=== PATIENT | male | born 1935 | race Caucasian/White ===

== ENCOUNTER 2016-05-31 14:58 | Inpatient (IN) ==
[2016-05-31] MEDS ORDERED: *HR* LORazepam 2 MG/ML VIAL IVP ONE (20:02)
[2016-05-31] MEDS ORDERED: Naloxone 0.4 MG/ML INJ IVP PRN (21:06)
[2016-05-31 21:38] LABS: Hemoglobin 6.5 g/dL (12.9-16.9)
[2016-05-31 21:40] LABS: Hematocrit 20.4 % (37.5-50.1); Immature Platelets 5.2 % (1.1-6.1); Mean Corpuscular HGB Conc 31.9 g/dL (31.6-35.5); Mean Corpuscular Hemoglobin 27.4 pg (28.0-33.3); Mean Corpuscular Volume 86.1 fL (83.0-100.0); Mean Platelet Volume 10.1 fL (9.4-12.4); Red Blood Count 2.37 M/mcL (4.19-5.50)
[2016-05-31 21:50] LABS: Magnesium 1.4 mg/dL (1.6-2.6); Platelet Count 55 K/mcL (140-400); Potassium 3.1 mEq/L (3.5-4.5)
[2016-05-31] MEDS ORDERED: Vancomycin 1,000 MG in D5% in Water 250 ML IVPB SCH (22:00)
[2016-05-31 22:02] LABS: Lymphocytes # 0.2 K/mcL (0.6-4.6); Neutrophils # 9.8 K/mcL (1.6-8.9)
[2016-05-31 22:03] LABS: Platelet Estimate Decreased (Normal)
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
[2016-05-31 22:12] LABS: INR 1.3; Prothrombin Time 14.3 Seconds (9.4-12.1)
[2016-05-31] MEDS ORDERED: Pantoprazole 80 MG in 0.9 % Sodium Chloride 50 ML IVPB ONE (22:32)
[2016-05-31] MEDS ORDERED: Furosemide 20 MG/2 ML VIAL IVP ONE (22:32)
[2016-06-01] MEDS: *HR* LORazepam 2 MG/ML VIAL IVP PRN ×2 (00:47→04:57)
[2016-06-01] MEDS ORDERED: Potassium Chloride 40 MEQ, Lidocaine 1% 2 ML in D5% in Water 500 ML IVPB ONE (01:35)
[2016-06-01] MEDS ORDERED: Magnesium Sulfate 2 GM in D5% in Water 100 ML IVPB ONE (01:35)
[2016-06-01] MEDS ORDERED: *HR* Morphine 2 MG/ML SYRINGE IVP ONE (04:16)
[2016-06-01] MEDS: Pantoprazole 40 MG VIAL IVP SCH ×2 (05:28→17:42)
[2016-06-01] MEDS: Piperacillin/Tazobactam 3.375 GM in D5% in Water (Mini-Bag+) 100 ML IVPB SCH ×2 (05:28→17:42)
[2016-06-01 05:41] LABS: ABG Base Excess 6.2 mEq/L (-2.0 to 3.0); ABG HCO3 30.6 mEQ/L (21-27); ABG Oxygen Saturation 100 % (95-98); ABG PCO2 43 mmHg (35-45); ABG PH 7.46 pH Units (7.32-7.45); ABG PO2 213 mmHg (85-104); ABG TCO2 31.9 mEq/L (20-26)
[2016-06-01 05:42] LABS: Blood Gas FiO2 50 %
[2016-06-01] MEDS: Chlorhexidine Rinse 15 ML MOUTHWASH MM SCH ×2 (08:41→21:59)
[2016-06-01] MEDS ORDERED: Aminoglycoside Consult 1 EACH MC ONE (09:25)
[2016-06-01] MEDS: Dexmedetomidine HCl 400 MCG/100 ML MLS IVC SCH (10:14)
[2016-06-01] MEDS: FentaNYL (PF) 1,000 MCG in 0.9 % Sodium Chloride 80 ML IVC SCH (10:28)
[2016-06-01 10:40] LABS: Hematocrit 25.4 % (37.5-50.1); Hemoglobin 8.3 g/dL (12.9-16.9); Immature Platelets 5.6 % (1.1-6.1); Mean Corpuscular HGB Conc 32.7 g/dL (31.6-35.5); Mean Corpuscular Hemoglobin 27.9 pg (28.0-33.3); Mean Corpuscular Volume 85.2 fL (83.0-100.0); Mean Platelet Volume 11.4 fL (9.4-12.4); Platelet Count 61 K/mcL (140-400); Red Blood Count 2.98 M/mcL (4.19-5.50); Red Cell Distribution Width 16.3 % (11.5-14.5)
--- NOTE | 2016-06-01 10:51 | Pulmonology Consult Note ---
<Tio Kaye - Last Filed: 06/01/16 10:51> Date of Encounter: 06/01/16 Past Med Surg Social Fam HX - Past Medical History Medical history: atrial fibrillation, CHF Psychiatric history: no psych history - Social History Smoking Status: Unknown if ever smoked Smokeless Tobacco Status: No Alcohol use: unknown Drug use: none Medications and Allergies Alprazolam [Xanax 0.25 MG Tablet] 0.25 mg GTUBE Q6H PRN 05/24/16 [History] Ascorbate Calcium [Vitamin C] 500 mg GTUBE BID 05/24/16 [History] Atorvastatin Calcium [Lipitor] 20 mg GTUBE HS 05/24/16 [History] Bisacodyl [Dulcolax] 5 mg GTUBE DAILY PRN 05/24/16 [History] Bisacodyl [Dulcolax] 10 mg RC DAILY PRN 05/24/16 [History] Buspirone HCl [Buspar] 11.25 mg GTUBE BID 05/24/16 [History] Finasteride [Proscar] 5 mg PO DAILY 05/24/16 [History] Gabapentin [Neurontin] 100 mg GTUBE DAILY 05/24/16 [History] GuaiFENesin Liq [Robitussin Liq] 400 mg GTUBE Q6HR 05/24/16 [History] Ipratropium/Albuterol Neb [Duoneb] 3 ml IH Q2H PRN 05/24/16 [History] Melatonin 3 mg PO HS 05/24/16 [History] Metoprolol Tartrate [Lopressor] 25 mg GTUBE BID 05/24/16 [History] Mirtazapine [Remeron] 30 mg GTUBE HS 05/24/16 [History] Mupirocin Calcium [Bactroban Nasal] 1 appl NS BID 05/24/16 [History] Oxycodone HCl [Oxaydo] 5 mg GTUBE Q4H PRN 05/24/16 [History] Quetiapine Fumarate [SEROquel] 75 mg GTUBE Q8H 05/24/16 [History] Acetaminophen [Arthritis Pain Relief] 650 mg GTUBE Q4H PRN 05/31/16 [History] B Complex C No.10/Folic Acid [Nephronex Liquid] 900 mcg GTUBE DAILY 05/31/16 [ History] Ipratropium/Albuterol Neb [Duoneb] 3 ml IH Q4HR 05/31/16 [History] Mineral Oil/Petrolatum,White [Artificial Tears Eye Ointment] 1 appl BOTH EYES Q4H PRN 05/31/16 [History] Sennosides/Docusate Sodium [Senna Plus] 1 each GTUBE DAILY 05/31/16 [History] Allergies No Known Allergies Allergy (Verified 05/24/16 04:21) All Systems: A 10-system review of systems was performed and is negative for pertinent findings except as documented above in the HPI. Physical Examination Vital Signs: Vital Signs, Last 4 Hours Temp Pulse Resp BP Pulse Ox 06/01/16 10:00 85 31 111/60 100 06/01/16 09:42 32 137/82 100 06/01/16 09:00 86 39 126/73 100 06/01/16 08:00 85 23 112/54 100 06/01/16 07:28 98.2 F 06/01/16 07:23 98.1 F 80 22 122/59 100 Ventilator Settings Ventilator Settings: Ventilator Settings, Last 8 Hours Ventilator Mode CPAP Ventilator Mode A/C Ventilator Mode CPAP Ventilator Mode A/C Ventilator Mode A/C Ventilator Mode A/C Ventilator Mode A/C Ventilator Mode A/C Ventilator Mode A/C Ventilator Mode A/C Ventilator Mode A/C Ventilator Mode A/C Ventilator Tidal Volume 450 Setting Ventilator Tidal Volume 450 Setting Ventilator Tidal Volume 450 Setting Ventilator Tidal Volume 450 Setting Ventilator Tidal Volume 450 Setting Ventilator Tidal Volume 450 Setting Ventilator Tidal Volume 450 Setting Ventilator Tidal Volume 450 Setting Ventilator Tidal Volume 450 Setting Ventilator Tidal Volume 450 Setting Ventilator Respiratory Rate 14 Setting Ventilator Respiratory Rate 14 Setting Ventilator Respiratory Rate 14 Setting Ventilator Respiratory Rate 16 Setting Ventilator Respiratory Rate 16 Setting Ventilator Respiratory Rate 16 Setting Ventilator Respiratory Rate 16 Setting Ventilator Respiratory Rate 16 Setting Ventilator Respiratory Rate 16 Setting Ventilator Respiratory Rate 16 Setting Actual Respiratory Rate 31 Actual Respiratory Rate 32 Actual Respiratory Rate 39 Actual Respiratory Rate 27 Actual Respiratory Rate 27 Actual Respiratory Rate 25 Actual Respiratory Rate 31 Actual Respiratory Rate 28 Actual Respiratory Rate 31 Actual Respiratory Rate 31 Actual Respiratory Rate 33 Positive End Expiratory 5 Pressure Positive End Expiratory 5 Pressure Positive End Expiratory 5 Pressure Positive End Expiratory 5 Pressure Positive End Expiratory 5 Pressure Positive End Expiratory 5 Pressure Positive End Expiratory 5 Pressure Positive End Expiratory 5 Pressure Positive End Expiratory 5 Pressure Positive End Expiratory 5 Pressure Positive End Expiratory 5 Pressure Positive End Expiratory 5 Pressure Peak Inspiratory Airway 18 Pressure Peak Inspiratory Airway 18 Pressure Peak Inspiratory Airway 18 Pressure Peak Inspiratory Airway 23 Pressure Peak Inspiratory Airway 27 Pressure Peak Inspiratory Airway 27 Pressure Peak Inspiratory Airway 26 Pressure Peak Inspiratory Airway 25 Pressure Peak Inspiratory Airway 20 Pressure Peak Inspiratory Airway 27 Pressure Peak Inspiratory Airway 23 Pressure Results - Laboratory Findings CBC and BMP: 06/01/16 10:21 05/31/16 21:30 ABG ABG pH 7.46 pH Units (7.32-7.45) H 06/01/16 05:33 ABG pCO2 43 mmHg (35-45) 06/01/16 05:33 ABG pO2 213 mmHg (85-104) H 06/01/16 05:33 ABG O2 Saturation 100 % (95-98) H 06/01/16 05:33 PT/INR, D-dimer PT 14.3 Seconds (9.4-12.1) H 05/31/16 21:30 Abnormal lab findings: Abnormal lab results WBC 14.7 K/mcL (4.3-11.1) H 06/01/16 10:21 RBC 2.98 M/mcL (4.19-5.50) L 06/01/16 10:21 Hgb 8.3 g/dL (12.9-16.9) L D 06/01/16 10:21 Hct 25.4 % (37.5-50.1) L 06/01/16 10:21 MCH 27.9 pg (28.0-33.3) L 06/01/16 10:21 RDW 16.3 % (11.5-14.5) H 06/01/16 10:21 Plt Count 61 K/mcL (140-400) L 06/01/16 10:21 Band Neutrophils % 15.0 % (0-4) H 05/31/16 21:30 Neutrophils # 9.8 K/mcL (1.6-8.9) H 05/31/16 21:30 Lymphocytes # 0.2 K/mcL (0.6-4.6) L 05/31/16 21:30 Platelet Estimate Decreased (Normal) L 05/31/16 21:30 PT 14.3 Seconds (9.4-12.1) H 05/31/16 21:30 ABG pH 7.46 pH Units (7.32-7.45) H 06/01/16 05:33 ABG pO2 213 mmHg (85-104) H 06/01/16 05:33 ABG HCO3 30.6 mEQ/L (21-27) H 06/01/16 05:33 ABG Total CO2 31.9 mEq/L (20-26) H 06/01/16 05:33 ABG O2 Saturation 100 % (95-98) H 06/01/16 05:33 ABG Base Excess 6.2 mEq/L (-2.0 to 3.0) H 06/01/16 05:33 Potassium 3.1 mEq/L (3.5-4.5) L 05/31/16 21:30 Chloride 97 mEq/L (98-109) L 05/31/16 21:30 BUN 52 mg/dL (8-26) H D 05/31/16 21:30 Creatinine 1.99 mg/dL (0.72-1.25) H 05/31/16 21:30 Est GFR ( Amer) 39 (> 60) L 05/31/16 21:30 Est GFR (Non-Af Amer) 32 (> 60) L 05/31/16 21:30 Glucose 169 mg/dL (70-99) H 05/31/16 21:30 POC Glucose 163 (58-89) H 05/31/16 23:41 Calcium 8.0 mg/dL (8.6-10.8) L 05/31/16 21:30 Magnesium 1.4 mg/dL (1.6-2.6) L 05/31/16 21:30 C-Reactive Protein 136 mg/L (Less than 5) H 05/31/16 21:30 - Clinical Findings Intake & Output: Intake & Output 05/31/16 06/01/16 06/01/16 23:59 07:59 15:59 Intake Total 0 / 0 978 / 978 350 / 350 Output Total 81 / 81 Balance 0 / 0 897 / 897 350 / 350 Weight 61.3 kg 61.8 kg Consult Discharge Plan - Plan Referrals: NO,PCP [Primary Care Provider] - <Kisha Ayers - Last Filed: 06/01/16 18:29> Date of Encounter: 06/01/16 Time of Encounter: 07:30 All Systems: A 10-system review of systems was performed and is negative for pertinent findings except as documented above in the HPI. Physical Examination Vital Signs: Vital Signs, Last 4 Hours Temp Pulse Resp BP Pulse Ox 06/01/16 12:08 98.2 F 06/01/16 10:00 85 31 111/60 100 06/01/16 09:42 32 137/82 100 06/01/16 09:00 86 39 126/73 100 Ventilator Settings Ventilator Settings: Ventilator Settings, Last 8 Hours Ventilator Mode CPAP Ventilator Mode A/C Ventilator Mode CPAP Ventilator Mode A/C Ventilator Mode A/C Ventilator Mode A/C Ventilator Mode A/C Ventilator Mode A/C Ventilator Mode A/C Ventilator Tidal Volume 450 Setting Ventilator Tidal Volume 450 Setting Ventilator Tidal Volume 450 Setting Ventilator Tidal Volume 450 Setting Ventilator Tidal Volume 450 Setting Ventilator Tidal Volume 450 Setting Ventilator Tidal Volume 450 Setting Ventilator Respiratory Rate 14 Setting Ventilator Respiratory Rate 14 Setting Ventilator Respiratory Rate 14 Setting Ventilator Respiratory Rate 16 Setting Ventilator Respiratory Rate 16 Setting Ventilator Respiratory Rate 16 Setting Ventilator Respiratory Rate 16 Setting Actual Respiratory Rate 31 Actual Respiratory Rate 32 Actual Respiratory Rate 39 Actual Respiratory Rate 27 Actual Respiratory Rate 27 Actual Respiratory Rate 25 Actual Respiratory Rate 31 Actual Respiratory Rate 28 Positive End Expiratory 5 Pressure Positive End Expiratory 5 Pressure Positive End Expiratory 5 Pressure Positive End Expiratory 5 Pressure Positive End Expiratory 5 Pressure Positive End Expiratory 5 Pressure Positive End Expiratory 5 Pressure Positive End Expiratory 5 Pressure Positive End Expiratory 5 Pressure Peak Inspiratory Airway 18 Pressure Peak Inspiratory Airway 18 Pressure Peak Inspiratory Airway 18 Pressure Peak Inspiratory Airway 23 Pressure Peak Inspiratory Airway 27 Pressure Peak Inspiratory Airway 27 Pressure Peak Inspiratory Airway 26 Pressure Peak Inspiratory Airway 25 Pressure Results - Laboratory Findings CBC and BMP: 06/01/16 10:21 06/01/16 10:21 ABG ABG pH 7.46 pH Units (7.32-7.45) H 06/01/16 05:33 ABG pCO2 43 mmHg (35-45) 06/01/16 05:33 ABG pO2 213 mmHg (85-104) H 06/01/16 05:33 ABG O2 Saturation 100 % (95-98) H 06/01/16 05:33 PT/INR, D-dimer PT 14.3 Seconds (9.4-12.1) H 05/31/16 21:30 Abnormal lab findings: Abnormal lab results WBC 14.7 K/mcL (4.3-11.1) H 06/01/16 10:21 RBC 2.98 M/mcL (4.19-5.50) L 06/01/16 10:21 Hgb 8.3 g/dL (12.9-16.9) L D 06/01/16 10:21 Hct 25.4 % (37.5-50.1) L 06/01/16 10:21 MCH 27.9 pg (28.0-33.3) L 06/01/16 10:21 RDW 16.3 % (11.5-14.5) H 06/01/16 10:21 Plt Count 61 K/mcL (140-400) L 06/01/16 10:21 Neutrophils # 13.8 K/mcL (1.6-8.9) H 06/01/16 10:21 Platelet Estimate Decreased (Normal) L 06/01/16 10:21 PT 14.3 Seconds (9.4-12.1) H 05/31/16 21:30 ABG pH 7.46 pH Units (7.32-7.45) H 06/01/16 05:33 ABG pO2 213 mmHg (85-104) H 06/01/16 05:33 ABG HCO3 30.6 mEQ/L (21-27) H 06/01/16 05:33 ABG Total CO2 31.9 mEq/L (20-26) H 06/01/16 05:33 ABG O2 Saturation 100 % (95-98) H 06/01/16 05:33 ABG Base Excess 6.2 mEq/L (-2.0 to 3.0) H 06/01/16 05:33 Sodium 135 mEq/L (136-145) L 06/01/16 10:21 Chloride 96 mEq/L (98-109) L 06/01/16 10:21 BUN 70 mg/dL (8-26) H D 06/01/16 10:21 Creatinine 2.49 mg/dL (0.72-1.25) H 06/01/16 10:21 Est GFR ( Amer) 30 (> 60) L 06/01/16 10:21 Est GFR (Non-Af Amer) 25 (> 60) L 06/01/16 10:21 BUN/Creatinine Ratio 28 (6-26) H 06/01/16 10:21 Glucose 136 mg/dL (70-99) H 06/01/16 10:21 POC Glucose 163 (58-89) H 05/31/16 23:41 Calculated Osmolality 303 (280-300) H 06/01/16 10:21 Magnesium 1.4 mg/dL (1.6-2.6) L 05/31/16 21:30 C-Reactive Protein 136 mg/L (Less than 5) H 05/31/16 21:30 - Clinical Findings Intake & Output: Intake & Output 05/31/16 06/01/16 06/01/16 23:59 07:59 15:59 Intake Total 0 / 0 978 / 978 358.8 / 358.8 Output Total 81 / 81 0 / 0 Balance 0 / 0 897 / 897 358.8 / 358.8 Weight 61.3 kg 61.8 kg - Attending Attestation I examined this patient and my medical decision-making was reviewed with the 3D SPECIALIST/PA/Advanced Practice Nurse/Resident Physician. I agree with the documented findings, disposition and treatment plan as described except to the extent set forth below. Patient seen and examined. Labs, radiology, chart personally reviewed. 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 Pulmonary: Patient has increased work of breathing, overall ABGs are acceptable , we will lower his respiratory rate and trial of spontaneous breathing with pressure support which seems that patient more comfortable with that, however with adding sedation for vent synchrony patient needed to be on the full support again. Cardiovascular: Patient is on A. fib RVR and due to history of anemia which is most likely GI related not candidate for anticoagulation and to wean off his Cardizem to restart his metoprolol home dose. GI: Nutrition per dietary and GI prophylaxis per routine Heme: DVT prophylaxis per routine ID: Continue antibiotics and plan to de-escalation Renal; nephrology and will recommend HD for volume management and called nephrology. Endorcine: blood glucose is monitored Lines: all lines checked and no evidence of infections Skin: skin care to prevent pressure ulcers per nursing routine care Overall prognosis is poor. I spent 35 min of Critical Care time with this patient. It involved decision making of high complexity to assess, manipulate, and support vital organ system failure and/or to prevent further life threatening deterioration of the patient' s condition. The time involved in the performance of separately reportable procedures was not counted toward critical care time.
[2016-06-01 11:01] LABS: Calcium 8.6 mg/dL (8.6-10.8)
[2016-06-01 11:13] LABS: Lymphocytes # 0.6 K/mcL (0.6-4.6); Monocytes # 0.3 K/mcL (0.0-1.3); Neutrophils # 13.8 K/mcL (1.6-8.9)
[2016-06-01 11:14] LABS: Platelet Estimate Decreased (Normal)
[2016-06-01] MEDS ORDERED: Vancomycin 1,000 MG in D5% in Water 250 ML IVPB ONE ×2 (13:30→19:00)
[2016-06-01] MEDS ORDERED: 0.9 % Sodium Chloride 250 ML IVC PRN (13:31)
[2016-06-01] MEDS ORDERED: 0.9 % Sodium Chloride 1,000 ML PRIME SCH (13:45)
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
[2016-06-01] MEDS ORDERED: 0.9 % Sodium Chloride 2,000 ML ONE (14:37)
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
[2016-06-01] MEDS: Lacri-Lube 3.5 GM TUBE BOTH EYES SCH (21:59)
[2016-06-02] MEDS ORDERED: Vancomycin 1,000 MG in D5% in Water 250 ML IVPB ONE (02:00)
[2016-06-02] MEDS: FentaNYL (PF) 1,000 MCG in 0.9 % Sodium Chloride 80 ML IVC SCH ×2 (02:28→12:52)
[2016-06-02 04:24] LABS: ABG Base Excess 7.6 mEq/L (-2.0 to 3.0); ABG Oxygen Saturation 96 % (95-98); ABG PCO2 44 mmHg (35-45); ABG PH 7.47 pH Units (7.32-7.45); ABG PO2 75 mmHg (85-104); ABG TCO2 33.4 mEq/L (20-26)
[2016-06-02 04:25] LABS: Blood Gas FiO2 30 %
[2016-06-02 05:03] LABS: Hemoglobin 8.7 g/dL (12.9-16.9)
[2016-06-02 05:04] LABS: Hematocrit 26.7 % (37.5-50.1); Immature Platelets 5.3 % (1.1-6.1); Mean Corpuscular HGB Conc 32.6 g/dL (31.6-35.5); Mean Corpuscular Hemoglobin 28.1 pg (28.0-33.3); Mean Corpuscular Volume 86.1 fL (83.0-100.0); Mean Platelet Volume 10.3 fL (9.4-12.4); Red Cell Distribution Width 16.9 % (11.5-14.5)
[2016-06-02 05:06] LABS: Albumin 2.2 g/dL (3.5-5.0); Calcium 8.8 mg/dL (8.6-10.8); Magnesium 1.9 mg/dL (1.6-2.6); Phosphorous 1.1 mg/dL (2.3-4.7); Potassium 3.4 mEq/L (3.5-4.5)
[2016-06-02 05:08] LABS: Albumin 2.2 g/dL (3.5-5.0); Albumin/Globulin Ratio 0.6 (1.1-2.2); Bilirubin,Total 0.8 mg/dL (0.2-1.2); Calcium 8.9 mg/dL (8.6-10.8); Globulin 3.6 g/dL (2.4-3.5); Potassium 3.4 mEq/L (3.5-4.5); Total Protein 5.8 g/dL (6.0-8.3)
[2016-06-02 05:24] LABS: Platelet Count 65 K/mcL (140-400)
[2016-06-02 06:11] LABS: Lymphocytes # 0.6 K/mcL (0.6-4.6); Monocytes # 0.6 K/mcL (0.0-1.3); Neutrophils # 9.4 K/mcL (1.6-8.9)
[2016-06-02 06:12] LABS: Platelet Estimate Decreased (Normal)
[2016-06-02 06:13] LABS: Toxic Granulation Present (Not Present)
[2016-06-02] MEDS: Piperacillin/Tazobactam 3.375 GM in D5% in Water (Mini-Bag+) 100 ML IVPB SCH ×2 (06:43→17:30)
[2016-06-02] MEDS: Pantoprazole 40 MG VIAL IVP SCH ×2 (06:44→17:29)
[2016-06-02] MEDS: Chlorhexidine Rinse 15 ML MOUTHWASH MM SCH ×2 (09:15→21:00)
[2016-06-02] MEDS: Lacri-Lube 3.5 GM TUBE BOTH EYES SCH ×2 (09:16→21:00)
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
[2016-06-02] MEDS: Dexmedetomidine HCl 400 MCG/100 ML MLS IVC SCH ×2 (11:18→21:02)
[2016-06-02 11:22] LABS: Folate 15.7 ng/mL (7.0-31.4)
[2016-06-02] MEDS ORDERED: Piperacillin/Tazobactam 3.375 GM in D5% in Water (Mini-Bag+) 100 ML IVPB SCH (15:30)
--- NOTE | 2016-06-02 15:58 | Nephrology Progress Note ---
Date of Encounter: 06/02/16 Time of Encounter: 15:48 - Assessment and Plan (1) ESRD (end stage renal disease) Current Visit: Yes Status: Acute 1. ESRD pt was dialyzed yesterday with 4 kg of ultrafiltration. No indication for dialysis today. Serum creatinine is 1.7, urine output is 110 mL 2. Hypokalemia, hypomagnesemia and hypophosphatemia. Serum magnesium level is stable today. Give IV K-Phos PTH level 43. vit D level is pend (2) Normocytic anemia Current Visit: Yes Status: Chronic hb stable. Continue Aranesp 25 mcgs q w friday. Ferritin and iron sat are elevated, currently not on iron supplements B12 level 1328, folate 15 Subjective Principal diagnosis: difficulty in breathing Interval history: awake, opening eyes and moving ext spontaneously. 28 % fio2 on vent. On Fentanyl and precedex. tolerating tube feeds Objective - Vital Signs Vital signs: Vital Signs Temp Pulse Resp BP Pulse Ox 06/02/16 15:27 23 138/63 97 06/02/16 15:20 98.0 F 06/02/16 14:00 79 21 135/78 98 06/02/16 13:49 28 124/64 98 06/02/16 13:00 79 20 124/64 98 06/02/16 12:00 79 23 125/58 99 06/02/16 11:18 96.7 F L 06/02/16 11:10 23 132/63 100 06/02/16 11:00 79 25 132/63 100 06/02/16 10:00 80 25 117/62 99 06/02/16 09:41 35 111/53 98 06/02/16 09:00 89 24 115/61 97 06/02/16 07:44 82 22 122/90 99 06/02/16 07:33 24 122/90 100 06/02/16 07:15 96.7 F L 06/02/16 06:00 80 23 127/68 100 06/02/16 05:45 23 100 06/02/16 05:00 81 20 142/74 100 06/02/16 04:00 97.8 F 86 20 140/71 100 06/02/16 03:39 18 127/95 100 06/02/16 03:00 79 18 128/73 100 06/02/16 02:00 95 20 136/81 96 04/23/17 01:15 21 141/75 96 06/02/16 01:00 98.4 F 94 20 135/75 96 06/02/16 00:20 98.4 F 06/02/16 00:00 86 06/01/16 23:30 18 100 06/01/16 22:00 97 15 124/70 100 06/01/16 21:27 20 113/98 100 06/01/16 21:00 92 18 116/72 100 06/01/16 20:00 98.0 F 98 18 125/72 100 06/01/16 19:56 98.8 F 16 106/62 06/01/16 19:34 19 100 06/01/16 19:10 94/64 06/01/16 19:00 96 18 107/60 100 06/01/16 18:55 103/60 06/01/16 18:40 106/69 06/01/16 18:25 105/68 06/01/16 18:10 115/71 06/01/16 18:00 88 26 110/63 100 06/01/16 17:55 126/80 06/01/16 17:40 127/74 06/01/16 17:25 105/62 06/01/16 17:21 22 112/64 100 06/01/16 17:10 119/65 06/01/16 17:00 87 22 113/65 100 06/01/16 16:55 114/73 06/01/16 16:40 124/68 06/01/16 16:25 137/71 06/01/16 16:10 98.2 F 16 136/81 06/01/16 16:09 96.3 F L 06/01/16 16:00 87 22 136/81 100 Intake and Output 06/01/16 06/02/16 06/02/16 23:59 07:59 15:59 Intake Total 4444 / 4444 384.7 / 384.7 226.5 / 226.5 Output Total 4100 / 4100 60 / 60 50 / 50 Balance 344 / 344 324.7 / 324.7 176.5 / 176.5 Intake: IV Fluids 100 / 100 224.7 / 224.7 226.5 / 226.5 PRECEDEX 400 mcg In 100 64.5 / 64.5 61.8 / 61.8 ml @ 0.2 MCG/KG/HR 3.09 mls/hr IVC .Q24H [facility] Rx#: [id number] Cardizem 125 MG In 0 / 0 Dextrose 5% 100 ML @ 5 MG /HR 5 mls/hr IVC .Q24H [facility] Rx#:[id number] FentaNYL (PF) 1,000 MCG 160.2 / 160.2 64.7 / 64.7 In 0.9 % Sodium Chloride 80 ML @ 50 MCG/HR 5 mls/ hr IVC CONT [facility] Rx#: [id number] Zosyn 3.375 GM In 100 / 100 100 / 100 Dextrose 5% (Minibag+) 100 ML 100 ML @ 25 mls/hr IVPB Q12HR [facility] Rx#: [id number] Oral 3500 / 3500 0 / 0 Tube Feeding 144 / 144 160 / 160 Free Water 100 / 100 Intake, Rinseback and 600 / 600 Flushes Output: Urine 0 / 0 Stool 0 / 0 Total Dialysis Output 4100 / 4100 Catheter 0 / 0 60 / 60 50 / 50 Other: Stool Size Small Stool Consistency loose Stool Color Brown Weight 59 kg Blood Glucose* 118 Hemodialysis Net Fluid 3500 Removed (mL) Patient Weight 06/02/16 23:59 Weight 59 kg - General Appearance Exam: CVS; s1s2 present, regular, no murmurs RESP; good air entry, clear anteriorly ABD; soft, NT, BS present EXT; no edema, 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; 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, no purposeful response - Lab 06/02/16 04:51 06/02/16 04:51 Most recent lab results ABG pH 7.47 pH Units (7.32-7.45) H 06/02/16 03:54 ABG pCO2 44 mmHg (35-45) 06/02/16 03:54 ABG pO2 75 mmHg (85-104) L 06/02/16 03:54 ABG HCO3 32.0 mEQ/L (21-27) H 06/02/16 03:54 ABG O2 Saturation 96 % (95-98) 06/02/16 03:54 Calcium 8.9 mg/dL (8.6-10.8) 06/02/16 04:51 Phosphorus 1.1 mg/dL (2.3-4.7) L 06/02/16 04:51 Magnesium 1.9 mg/dL (1.6-2.6) 06/02/16 04:51 - VTE Documentation of Mechanical Device: Intermittent pneumatic compression device Consult Discharge Plan - Plan Referrals: NO,PCP [Primary Care Provider] -
[2016-06-03] MEDS: FentaNYL (PF) 1,000 MCG in 0.9 % Sodium Chloride 80 ML IVC SCH (01:49)
[2016-06-03 04:35] LABS: Basophils % 0.6 %; Eosinophils % 0.1 %; Hemoglobin 8.9 g/dL (12.9-16.9); Segmented Neutrophils % 56.1 %
[2016-06-03 04:37] LABS: Hematocrit 27.6 % (37.5-50.1); Immature Granulocytes % 23.7 % (0-4); Immature Platelets 3.3 % (1.1-6.1); Lymphocytes # 0.5 K/mcL (0.6-4.6); Lymphocytes % 7.3 %; Mean Corpuscular HGB Conc 32.2 g/dL (31.6-35.5); Mean Corpuscular Hemoglobin 28.5 pg (28.0-33.3); Mean Corpuscular Volume 88.5 fL (83.0-100.0); Mean Platelet Volume 11.3 fL (9.4-12.4); Monocytes # 0.9 K/mcL (0.0-1.3); Monocytes % 12.2 %; Red Blood Count 3.12 M/mcL (4.19-5.50)
[2016-06-03 04:43] LABS: Calcium 8.6 mg/dL (8.6-10.8); Potassium 3.5 mEq/L (3.5-4.5)
[2016-06-03 04:43] LABS: ABG HCO3 29.1 mEQ/L (21-27); ABG Oxygen Saturation 98 % (95-98); ABG PCO2 40 mmHg (35-45); ABG PH 7.47 pH Units (7.32-7.45); ABG PO2 92 mmHg (85-104); ABG TCO2 30.3 mEq/L (20-26); Blood Gas FiO2 28 %
[2016-06-03 04:46] LABS: Phosphorous 2.2 mg/dL (2.3-4.7)
[2016-06-03 04:55] LABS: Calcium 8.6 mg/dL (8.6-10.8); Potassium 3.5 mEq/L (3.5-4.5)
[2016-06-03 05:05] LABS: Platelet Count 72 K/mcL (140-400)
[2016-06-03 05:06] LABS: Hypochromasia Present (Not Present); Platelet Estimate Decreased (Normal)
[2016-06-03] MEDS: Pantoprazole 40 MG VIAL IVP SCH ×2 (06:17→21:23)
[2016-06-03] MEDS: Piperacillin/Tazobactam 3.375 GM in D5% in Water (Mini-Bag+) 100 ML IVPB SCH (06:17)
[2016-06-03] MEDS: Dexmedetomidine HCl 400 MCG/100 ML MLS IVC SCH ×2 (06:17→16:27)
--- NOTE | 2016-06-03 08:35 | Nephrology Progress Note ---
Date of Encounter: 06/03/16 Time of Encounter: 08:33 - Assessment and Plan (1) ESRD (end stage renal disease) Current Visit: Yes Status: Acute Patient's creatinine remains low because of decreased muscle mass. He is oliguric. He will require dialysis today for control of azotemia. He is on Aranesp for his anemia. Iron studies are satisfactory. (2) Atrial fibrillation with RVR Current Visit: Yes Status: Acute (3) Acute and chronic respiratory failure Current Visit: Yes Status: Acute Qualifiers: Respiratory failure complication: hypoxia Qualified Code(s): J96.21 - Acute and chronic respiratory failure with hypoxia Subjective Principal diagnosis: difficulty in breathing Interval history: Patient is on the ventilator. He appears more alert. Sedation has been turned off. Jackson catheter is in place. Patient makes very little urine. He is scheduled for his usual dialysis today. Objective - Vital Signs Vital signs: Vital Signs Temp Pulse Resp BP Pulse Ox 06/03/16 07:49 98.4 F 06/03/16 07:43 27 140/72 97 06/03/16 06:00 82 22 140/60 97 06/03/16 05:20 28 139/81 99 06/03/16 05:06 97.2 F L 06/03/16 05:00 91 28 139/81 99 06/03/16 04:00 80 24 133/64 100 06/03/16 03:49 18 140/68 100 06/03/16 03:00 78 25 136/68 100 06/03/16 02:00 74 23 133/71 100 06/03/16 01:18 20 136/72 100 06/03/16 01:00 77 18 134/72 99 06/03/16 00:00 98.2 F 84 18 136/68 99 06/02/16 23:37 98.2 F 06/02/16 23:27 19 142/72 98 06/02/16 23:00 98.2 F 72 18 143/72 100 06/02/16 22:00 74 18 131/65 99 06/02/16 21:34 26 138/66 99 06/02/16 21:00 98.0 F 78 18 133/70 97 06/02/16 20:00 98.0 F 86 06/02/16 19:34 19 120/68 100 06/02/16 19:00 98.0 F 76 18 126/58 100 06/02/16 18:00 77 20 119/63 100 06/02/16 17:16 20 126/66 95 06/02/16 17:00 80 19 129/62 100 06/02/16 16:00 77 22 141/74 98 06/02/16 15:27 23 138/63 97 06/02/16 15:20 98.0 F 06/02/16 15:00 76 24 138/63 97 06/02/16 14:00 79 21 135/78 98 06/02/16 13:49 28 124/64 98 06/02/16 13:00 79 20 124/64 98 06/02/16 12:00 79 23 125/58 99 06/02/16 11:18 96.7 F L 06/02/16 11:10 23 132/63 100 06/02/16 11:00 79 25 132/63 100 06/02/16 10:00 80 25 117/62 99 06/02/16 09:41 35 111/53 98 06/02/16 09:00 89 24 115/61 97 Intake and Output 06/02/16 06/03/16 06/03/16 23:59 07:59 15:59 Intake Total 830 / 830 383 / 383 Output Total 72 / 72 95 / 95 Balance 758 / 758 288 / 288 Intake: IV Fluids 170 / 170 170 / 170 PRECEDEX 400 mcg In 100 70 / 70 100 / 100 ml @ 0.2 MCG/KG/HR 3.09 mls/hr IVC .Q24H [facility] Rx#: [id number] FentaNYL (PF) 1,000 MCG 70 / 70 In 0.9 % Sodium Chloride 80 ML @ 50 MCG/HR 5 mls/ hr IVC CONT [facility] Rx#: [id number] Zosyn 3.375 GM In 100 / 100 Dextrose 5% (Minibag+) 100 ML 100 ML @ 25 mls/hr IVPB Q12HR [facility] Rx#: [id number] Tube Feeding 660 / 660 213 / 213 Output: Urine 30 / 30 Urethral (Jackson) 30 / 30 Catheter 51 / 51 65 / 65 Other: Stool Size Large Moderate Stool Consistency loose soft Stool Color Brown Black # Bowel Movements 1 Weight 62.6 kg - General Appearance Exam: Patient is on the ventilator. Trach is in place. He is in no acute distress. He appears chronically ill and thin. Lungs coarse breath sounds with rhonchi. Heart irregular rate and rhythm. Abdomen is soft. Bowel sounds are present. PEG tube is in place. There is no peripheral edema. There is generalized muscular atrophy. There is a tunnel dialysis catheter in the right chest. - Lab 06/03/16 04:15 06/03/16 04:15 Most recent lab results ABG pH 7.47 pH Units (7.32-7.45) H 06/03/16 04:32 ABG pCO2 40 mmHg (35-45) 06/03/16 04:32 ABG pO2 92 mmHg (85-104) 06/03/16 04:32 ABG HCO3 29.1 mEQ/L (21-27) H 06/03/16 04:32 ABG O2 Saturation 98 % (95-98) 06/03/16 04:32 Calcium 8.6 mg/dL (8.6-10.8) 06/03/16 04:15 Phosphorus 2.2 mg/dL (2.3-4.7) L D 06/03/16 04:15 Magnesium 1.9 mg/dL (1.6-2.6) 06/02/16 04:51 - VTE Documentation of Mechanical Device: Intermittent pneumatic compression device Consult Discharge Plan - Plan Referrals: NO,PCP [Primary Care Provider] -
[2016-06-03] MEDS ORDERED: 0.9 % Sodium Chloride 250 ML IVC PRN (08:36)
[2016-06-03 08:58] LABS: Vancomycin,Random 16.5 mcg/mL
[2016-06-03] MEDS: Chlorhexidine Rinse 15 ML MOUTHWASH MM SCH ×2 (09:02→21:23)
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
[2016-06-03 09:12] LABS: Albumin 2.1 g/dL (3.5-5.0); Albumin/Globulin Ratio 0.6 (1.1-2.2); Bilirubin,Direct 0.5 mg/dL (0.0-0.5); Bilirubin,Indirect 0.4 mg/dL (0.0-1.2); Bilirubin,Total 0.9 mg/dL (0.2-1.2); Globulin 3.5 g/dL (2.4-3.5); Total Protein 5.6 g/dL (6.0-8.3)
[2016-06-03] MEDS ORDERED: Vancomycin 1 EACH in EMPTY BAG 1 EACH IVPB SCH (10:00)
[2016-06-03] MEDS ORDERED: Vancomycin 1,000 MG in D5% in Water 250 ML IVPB SCH (10:00)
[2016-06-03] MEDS: Ampicillin 2 GM in 0.9 % Sodium Chloride Mini Bag 100 ML IVPB SCH ×2 (12:41→21:24)
--- NOTE | 2016-06-03 12:53 | Event Note ---
Date of Encounter: 06/03/16 Time of Encounter: 08:30 Patient examined, chart and all data reviewed as well as imaging studies. The patient was transferred to [facility] with anemia and heme-positive stool. The patient has multiple comorbidities which include chronic respiratory failure and sees patient has chronic trach as well as reportedly is ventilator dependent) end-stage renal disease (hemodialysis 3 times weekly via right subclavian permacath) and atrial fibrillation (pacemaker) among other comorbidities. Patient currently requires low-level ventilatory support. He is also receiving sedation with both Precedex and fentanyl infusions. His hemodynamics are acceptable. Examination reveals an elderly male seemingly confused when prompted regarding questions he is awake and alert no distress vitals reviewed. A well healed tracheostomy devices within appropriate positioning. A right subclavian permacath is noted the insertion site is clean and dry. A right upper extremity PICC line is also present. A pacemaker device is noted entering the left subclavian location is palpable generator over the left subclavian position. Chest auscultation reveals crackles bilaterally diminished breath sounds. Cardiac exam is notable for an irregularly rhythm faint murmur. The abdominal exam was soft nontender bowel sounds are noted throughout. The extremities are free of edema pulses are intact. Limited neurologic exam reveals no obvious focal deficits. Laboratory data reviewed and of note, as of this morning, 2 out of 2 blood cultures performed an outlying institution revealed growth of ampicillin sensitive enterococcus. Impressions #1 chronic respiratory failure ventilator dependent, #2 tracheostomy status #3 enterococcal bacteremia presumably line infection as etiology #4 end-stage renal disease with hypervolemia and pulmonary edema #5 anemia presumably acute blood loss anemia (in addition a chronic anemia), given positive stool treatment directed with PPI therapy and GI consultation requested. The patient will be placed on intravenous ampicillin. Right upper extremity PICC line will be removed. An echocardiogram will be obtained for further evaluation of valvular dysfunction and repeat blood cultures will be obtained within the next 48 hours. Further evaluation regarding the possible need for removal of permacath device will be dependent upon sterilization of blood cultures and no other findings to suggest ongoing endovascular infection. Continuous sedation and subcutaneous will be discontinued at this time. Hemodialysis per discretion of nephrology service. Deloris Ibarra [phone]
[2016-06-03] MEDS ORDERED: *HR* Heparin 10,000 UNIT/10 ML VIAL IV PRN (13:14)
[2016-06-03] MEDS ORDERED: 0.9 % Sodium Chloride 2,000 ML ONE (13:27)
[2016-06-03] MEDS ORDERED: *HR* LORazepam 2 MG/ML VIAL IVP ONE (17:30)
[2016-06-03] MEDS: Lacri-Lube 3.5 GM TUBE BOTH EYES SCH (21:00)
[2016-06-03] MEDS: *HR* LORazepam 2 MG/ML VIAL IVP SCH (21:22)
[2016-06-03] MEDS ORDERED: *HR* LORazepam 2 MG/ML VIAL ONE (23:13)
[2016-06-04] MEDS: *HR* FentaNYL (PF) 100 MCG/2 ML VIAL IVP PRN ×4 (00:36→17:27)
[2016-06-04] MEDS: Lacri-Lube 3.5 GM TUBE BOTH EYES SCH ×3 (00:38→21:33)
[2016-06-04] MEDS: *HR* LORazepam 2 MG/ML VIAL IVP SCH ×2 (02:42→08:26)
[2016-06-04] MEDS ORDERED: *HR* Metoprolol 5 MG/5 ML VIAL IVP ONE (03:17)
[2016-06-04] MEDS: Dexmedetomidine HCl 400 MCG/100 ML MLS IVC SCH (04:34)
[2016-06-04 04:39] LABS: Hematocrit 27.9 % (37.5-50.1); Hemoglobin 9.1 g/dL (12.9-16.9); Mean Corpuscular HGB Conc 32.6 g/dL (31.6-35.5); Mean Corpuscular Hemoglobin 28.9 pg (28.0-33.3); Mean Corpuscular Volume 88.6 fL (83.0-100.0); Mean Platelet Volume 10.8 fL (9.4-12.4); Red Blood Count 3.15 M/mcL (4.19-5.50); Red Cell Distribution Width 16.8 % (11.5-14.5)
[2016-06-04 04:40] LABS: Platelet Count 67 K/mcL (140-400)
[2016-06-04 06:02] LABS: ABG Base Excess 4.8 mEq/L (-2.0 to 3.0); ABG HCO3 27.8 mEQ/L (21-27); ABG Oxygen Saturation 98 % (95-98); ABG PCO2 34 mmHg (35-45); ABG PH 7.52 pH Units (7.32-7.45); ABG PO2 88 mmHg (85-104); ABG TCO2 28.8 mEq/L (20-26)
[2016-06-04 06:03] LABS: Blood Gas FiO2 28 %
[2016-06-04] MEDS: Pantoprazole 40 MG VIAL IVP SCH ×2 (06:15→18:02)
--- NOTE | 2016-06-04 07:57 | Nephrology Progress Note ---
Date of Encounter: 06/04/16 Time of Encounter: 07:56 - Assessment and Plan (1) ESRD (end stage renal disease) Current Visit: Yes Status: Acute Patient has end-stage renal disease. He remains dialysis dependent. He will continue to have dialysis every Friday. (2) Atrial fibrillation with RVR Current Visit: Yes Status: Acute (3) Acute and chronic respiratory failure Current Visit: Yes Status: Acute Qualifiers: Respiratory failure complication: hypoxia Qualified Code(s): J96.21 - Acute and chronic respiratory failure with hypoxia Subjective Principal diagnosis: difficulty in breathing Interval history: The patient remains on the ventilator. The nurse reports the patient had A. fib with RVR last night. This morning his heart rate is around 87. Vital signs are stable. He underwent dialysis yesterday. He is scheduled to undergo an EGD later today. Objective - Vital Signs Vital signs: Vital Signs Temp Pulse Resp BP Pulse Ox 06/04/16 06:00 87 24 117/78 100 06/04/16 05:55 35 119/69 98 06/04/16 05:00 79 20 119/69 100 06/04/16 04:40 99.4 F 06/04/16 04:34 26 102/59 100 06/04/16 04:00 99 30 102/59 100 06/04/16 03:00 156 40 150/79 96 06/04/16 02:33 28 105/64 93 06/04/16 02:00 122 29 105/64 100 06/04/16 01:00 100 30 108/81 100 06/04/16 00:39 100.5 F H 06/04/16 00:02 25 111/68 100 06/04/16 00:00 106 34 111/68 100 06/03/16 23:00 106 30 119/76 98 06/03/16 22:29 27 110/64 99 06/03/16 22:00 103 30 110/64 95 06/03/16 21:00 110 30 144/97 97 06/03/16 20:15 26 122/78 97 06/03/16 20:00 97.6 F 108 24 122/78 100 06/03/16 19:00 110 24 113/71 100 06/03/16 18:00 102 28 105/60 100 06/03/16 17:08 98.1 F 28 119/74 06/03/16 17:00 112 28 116/71 100 06/03/16 16:50 106/71 06/03/16 16:35 122/78 06/03/16 16:20 105/56 06/03/16 16:05 102/69 06/03/16 16:00 98.1 F 112 32 98/78 100 06/03/16 15:51 33 117/64 100 06/03/16 15:50 98/78 06/03/16 15:40 122/67 06/03/16 15:26 117/64 06/03/16 15:05 103/78 06/03/16 15:00 100 25 108/64 100 06/03/16 14:50 108/64 06/03/16 14:35 128/75 06/03/16 14:20 125/73 06/03/16 14:05 117/64 06/03/16 14:00 100 30 124/66 100 06/03/16 13:54 25 117/64 100 06/03/16 13:50 98.2 F 18 124/66 06/03/16 13:00 101 30 141/77 100 06/03/16 12:00 98.2 F 102 30 150/90 100 06/03/16 11:00 125 30 159/86 99 06/03/16 10:57 26 149/81 99 06/03/16 10:00 83 21 162/74 100 06/03/16 09:00 77 21 149/68 100 06/03/16 08:00 98.4 F 92 21 139/71 99 Intake and Output 06/03/16 06/03/16 06/04/16 15:59 23:59 07:59 Intake Total 740 / 740 100 / 100 650 / 650 Output Total 0 / 0 2725 / 2725 0 / 0 Balance 740 / 740 -2625 / -2625 650 / 650 Intake: IV Fluids 100 / 100 100 / 100 200 / 200 PRECEDEX 400 mcg In 100 100 / 100 100 / 100 ml @ 0.2 MCG/KG/HR 3.09 mls/hr IVC .Q24H ER[facility]STO Rx#: [id number] Ampicillin 2 GM In 0.9 % 100 / 100 100 / 100 Sodium Chloride (Mini-Bag +) 100 ML @ 200 mls/hr IVPB BID ER[facility]STO Rx#: [id number] Oral 0 / 0 0 / 0 0 / 0 Tube Feeding 40 / 40 0 / 0 450 / 450 Intake, Rinseback and 600 / 600 Flushes Output: Urine 0 / 0 0 / 0 Urethral ([facility]) 0 / 0 0 / 0 Total Dialysis Output 2600 / 2600 Rectal Tube 0 / 0 Catheter 125 / 125 0 / 0 Other: Stool Size Copious Stool Consistency liquid Stool Color Black # Bowel Movements 2 Weight 57.516 kg Hemodialysis Net Fluid 1735 2000 Removed (mL) Patient Weight 06/04/16 23:59 Weight 57.516 kg - General Appearance Exam: Patient is on the ventilator. He is in no acute distress. He does appear somewhat restless. Lungs diminished breath sounds. Heart irregular rate and rhythm. Abdomen is benign. PEG tube is in place. There is no lower extremity swelling. As a tunnel dialysis catheter in the right chest. - Lab 06/04/16 04:20 06/03/16 04:15 Most recent lab results ABG pH 7.52 pH Units (7.32-7.45) H 06/04/16 05:52 ABG pCO2 34 mmHg (35-45) L 06/04/16 05:52 ABG pO2 88 mmHg (85-104) 06/04/16 05:52 ABG HCO3 27.8 mEQ/L (21-27) H 06/04/16 05:52 ABG O2 Saturation 98 % (95-98) 06/04/16 05:52 Calcium 8.6 mg/dL (8.6-10.8) 06/03/16 04:15 Phosphorus 2.2 mg/dL (2.3-4.7) L D 06/03/16 04:15 Magnesium 1.9 mg/dL (1.6-2.6) 06/02/16 04:51 - VTE Documentation of Mechanical Device: Intermittent pneumatic compression device Consult Discharge Plan - Plan Referrals: NO,PCP [Primary Care Provider] -
[2016-06-04] MEDS: Chlorhexidine Rinse 15 ML MOUTHWASH MM SCH ×2 (08:04→19:48)
[2016-06-04] MEDS: Ampicillin 2 GM in 0.9 % Sodium Chloride Mini Bag 100 ML IVPB SCH ×2 (08:05→19:49)
--- NOTE | 2016-06-04 11:11 | Event Note ---
Date of Encounter: 06/04/16 Time of Encounter: 09:20 Patient examined, chart and all data reviewed as well as imaging studies. No acute overnight events were noted per discussion with nursing staff. Patient remains on full ventilatory support low FiO2 and PEEP requirement. Moderate secretions are noted with endotracheal suctioning, mainly mucoid in character. Atrial fibrillation persists however the ventricular response is controlled with current medical therapies. The baseline mental status of this individual is uncertain. Per discussion with nursing staff, the patient remains on a Precedex infusion for corticoid agitation". Examination reveals a elderly male cachectic is in no obvious acute distress does open his eyes but does not follow commands when stimulated. Vital reviewed. Had mild temporal wasting noted otherwise normocephalic, pupils are normal, oral pharyngeal exam unremarkable. The neck exam reveals tracheostomy device stoma is clean dry there is no bleeding. Chest exam reveals crackles mid lower lung zones bilaterally. Cardiac exam irregular rate is and rhythm noted. Faint apical murmur. Abdominal exam soft nontender bowel sounds are noted 8 site is clean and dry. Extremities are free of cyanosis trace edema is noted over the legs pulses are intact. Region is noted over the left knee. Skin exam revealed areas of ecchymosis. Limited neurologic exam reveals no obvious focal deficits. The patient does open eyes does turn his head to stimulation but is unable to follow any commands during my evaluation. Outside laboratory data reportedly reveals 2 out of 2 blood cultures for growth of ampicillin sensitive enterococcus. The hemoglobin value remained stable at approximately 9 g/dL. Impressions #1 chronic respiratory failure with hypoxia #2 tracheostomy status # 3 pulmonary edema secondary to end-stage renal disease and presumably related to cardiovascular dysfunction #4 enterococcal bacteremia probable line source ( reportedly, the PICC line within the right upper extremity is new the dialysis catheter has been present for a number of weeks and is most likely the source etiology of bacteremia) #5 anemia acute blood loss variety presumptive upper GI blood loss source plus underlying anemia of chronic disease (the patient is to undergo EGD by Dr. baxter later today, continue PPI) #6 chronic atrial fibrillation #7 encephalopathy (toxic metabolic). Continue antibiotic therapy, recheck blood cultures tomorrow. A transesophageal echocardiogram will be obtained however proceed with EGD first in order to ensure absence of substantial ulcer that would increase the risk of bleeding with CHIQUITA (CHIQUITA necessary for evaluation of endocarditis). Nursing staff has been instructed to discontinue Precedex infusion and all benzodiazepines and other potential sedating substances of been discontinued. Ultimately, the patient may require removal of the permacath which presumably is a source of bacteremia. E Cordasco [phone]
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
[2016-06-04] MEDS ORDERED: *HR* Midazolam HCl 5 MG/5 ML VIAL IVP PRN ×2 (16:05→23:42)
[2016-06-04] MEDS ORDERED: *HR* FentaNYL (PF) 100 MCG/2 ML VIAL IVP ONE (17:25)
--- NOTE | 2016-06-04 17:29 | General Surgery Consult Note ---
Date of Encounter: 06/04/16 Time of Encounter: 16:00 History of Present Illness Reason for consult: other (anemia) Requesting physician: Lee Ibarra History of present illness: 81 yo referred for endoscopy after developing anemia is suspected to be acute blood loss due to suspected GI source. The patient has a history of prior peptic ulcer disease as well as acute on chronic respiratory failure, pneumonia , sepsis, pulmonary edema, end-stage renal disease, atrial fibrillation and CHF. The patient is chronically ventilated via tracheostomy there is a gastrostomy tube in place. On 06/01/16 the patient demonstrated a hemoglobin of 6.5 with hematocrit 20th 0.4. He was transfused 2 units of blood with his hemoglobin rising to a proximally 8.9 with a hematocrit 27.6. Since the transfusion the patient's H&H has remained stable. He has noted thrombocytopenia with platelet count ranging from 55,000-72,000. Consent for EGD was obtained from family; risks include hemorrhage, aspiration, injury to adjacent structures, cramping abdominal pain, bloating and perforation. Past Med Surg Social Fam HX - Past Medical History Medical history: atrial fibrillation, CHF Psychiatric history: no psych history - Social History Smoking Status: Unknown if ever smoked Smokeless Tobacco Status: No Alcohol use: unknown Drug use: none Medications and Allergies Alprazolam [Xanax 0.25 MG Tablet] 0.25 mg GTUBE Q6H PRN 05/24/16 [History] Ascorbate Calcium [Vitamin C] 500 mg GTUBE BID 05/24/16 [History] Atorvastatin Calcium [Lipitor] 20 mg GTUBE HS 05/24/16 [History] Bisacodyl [Dulcolax] 5 mg GTUBE DAILY PRN 05/24/16 [History] Bisacodyl [Dulcolax] 10 mg RC DAILY PRN 05/24/16 [History] Buspirone HCl [Buspar] 11.25 mg GTUBE BID 05/24/16 [History] Finasteride [Proscar] 5 mg PO DAILY 05/24/16 [History] Gabapentin [Neurontin] 100 mg GTUBE DAILY 05/24/16 [History] GuaiFENesin Liq [Robitussin Liq] 400 mg GTUBE Q6HR 05/24/16 [History] Ipratropium/Albuterol Neb [Duoneb] 3 ml IH Q2H PRN 05/24/16 [History] Melatonin 3 mg PO HS 05/24/16 [History] Metoprolol Tartrate [Lopressor] 25 mg GTUBE BID 05/24/16 [History] Mirtazapine [Remeron] 30 mg GTUBE HS 05/24/16 [History] Mupirocin Calcium [Bactroban Nasal] 1 appl NS BID 05/24/16 [History] Oxycodone HCl [Oxaydo] 5 mg GTUBE Q4H PRN 05/24/16 [History] Quetiapine Fumarate [SEROquel] 75 mg GTUBE Q8H 05/24/16 [History] Acetaminophen [Arthritis Pain Relief] 650 mg GTUBE Q4H PRN 05/31/16 [History] B Complex C No.10/Folic Acid [Nephronex Liquid] 900 mcg GTUBE DAILY 05/31/16 [ History] Ipratropium/Albuterol Neb [Duoneb] 3 ml IH Q4HR 05/31/16 [History] Mineral Oil/Petrolatum,White [Artificial Tears Eye Ointment] 1 appl BOTH EYES Q4H PRN 05/31/16 [History] Sennosides/Docusate Sodium [Senna Plus] 1 each GTUBE DAILY 05/31/16 [History] Allergies No Known Allergies Allergy (Verified 05/24/16 04:21) Review of Systems All systems PM: A 10-system review of systems was performed and is negative for pertinent findings except as documented above in the HPI. General Surgery Exam Initial Vital Signs Resp Pulse Ox 29 97 05/31/16 17:06 05/31/16 17:06 Exam Initial Vital Signs Resp Pulse Ox 29 97 05/31/16 17:06 05/31/16 17:06 Results - Labs 06/04/16 04:20 06/03/16 04:15 Abnormal lab results WBC 11.6 K/mcL (4.3-11.1) H D 06/04/16 04:20 RBC 3.15 M/mcL (4.19-5.50) L 06/04/16 04:20 Hgb 9.1 g/dL (12.9-16.9) L 06/04/16 04:20 Hct 27.9 % (37.5-50.1) L 06/04/16 04:20 RDW 16.8 % (11.5-14.5) H 06/04/16 04:20 Plt Count 67 K/mcL (140-400) L 06/04/16 04:20 Immature Gran % 23.7 % (0-4) H 06/03/16 04:15 Band Neutrophils % 11.0 % (0-4) H 06/02/16 04:51 Lymphocytes # 0.5 K/mcL (0.6-4.6) L 06/03/16 04:15 Toxic Granulation Present (Not Present) A 06/02/16 04:51 Platelet Estimate Decreased (Normal) L 06/03/16 04:15 Hypochromasia Present (Not Present) A 06/03/16 04:15 PT 14.3 Seconds (9.4-12.1) H 05/31/16 21:30 ABG pH 7.52 pH Units (7.32-7.45) H 06/04/16 05:52 ABG pCO2 34 mmHg (35-45) L 06/04/16 05:52 ABG HCO3 27.8 mEQ/L (21-27) H 06/04/16 05:52 ABG Total CO2 28.8 mEq/L (20-26) H 06/04/16 05:52 ABG Base Excess 4.8 mEq/L (-2.0 to 3.0) H 06/04/16 05:52 BUN 70 mg/dL (8-26) H D 06/03/16 04:15 Creatinine 2.42 mg/dL (0.72-1.25) H 06/03/16 04:15 Est GFR ( Amer) 31 (> 60) L 06/03/16 04:15 Est GFR (Non-Af Amer) 26 (> 60) L 06/03/16 04:15 BUN/Creatinine Ratio 29 (6-26) H 06/03/16 04:15 Glucose 109 mg/dL (70-99) H 06/03/16 04:15 POC Glucose 118 (58-89) H 06/01/16 23:55 Calculated Osmolality 315 (280-300) H 06/03/16 04:15 Phosphorus 2.2 mg/dL (2.3-4.7) L D 06/03/16 04:15 Iron 56 mcg/dL (65-175) L 06/03/16 04:15 Transferrin 93 mg/dL (174-364) L 06/03/16 04:15 Ferritin 2435 ng/ml (22-275) H 06/02/16 04:51 AST 69 Units/L (5-34) H 06/03/16 04:15 ALT 88 Units/L (0-55) H 06/03/16 04:15 Alkaline Phosphatase 205 Units/L (38-126) H 06/03/16 04:15 C-Reactive Protein 136 mg/L (Less than 5) H 05/31/16 21:30 Serum Total Protein 5.6 g/dL (6.0-8.3) L 06/03/16 04:15 Albumin 2.1 g/dL (3.5-5.0) L 06/03/16 04:15 Albumin/Globulin Ratio 0.6 (1.1-2.2) L 06/03/16 04:15 Vitamin B12 1328 pg/mL (213-816) H 06/02/16 04:51 Stool Occult Blood Positive (Negative) A 06/03/16 04:07 All other labs normal. Consult Discharge Plan - Plan Referrals: NO,PCP [Primary Care Provider] -
[2016-06-04] MEDS: Nystatin SUSP 5 ML UD.LIQ PO SCH ×2 (18:02→21:37)
[2016-06-04] MEDS ORDERED: *HR* FentaNYL (PF) 100 MCG/2 ML VIAL IVP PRN (22:32)
[2016-06-05] MEDS: *HR* FentaNYL (PF) 100 MCG/2 ML VIAL IVP PRN ×2 (00:17→08:30)
[2016-06-05 04:43] LABS: ABG Base Excess 6.7 mEq/L (-2.0 to 3.0); ABG HCO3 30.4 mEQ/L (21-27); ABG Oxygen Saturation 97 % (95-98); ABG PCO2 39 mmHg (35-45); ABG PO2 86 mmHg (85-104); ABG TCO2 31.6 mEq/L (20-26)
[2016-06-05 04:44] LABS: Blood Gas FiO2 28 %
[2016-06-05 06:52] LABS: Eosinophils % 0.1 %; Segmented Neutrophils % 74.3 %
[2016-06-05 06:54] LABS: Basophils # 0.1 K/mcL (0.0-0.2); Basophils % 0.4 %; Hematocrit 31.1 % (37.5-50.1); Hemoglobin 9.6 g/dL (12.9-16.9); Immature Granulocytes % 11.3 % (0-4); Immature Platelets 4.4 % (1.1-6.1); Lymphocytes # 0.9 K/mcL (0.6-4.6); Lymphocytes % 5.3 %; Mean Corpuscular HGB Conc 30.9 g/dL (31.6-35.5); Mean Corpuscular Hemoglobin 27.4 pg (28.0-33.3); Mean Corpuscular Volume 88.6 fL (83.0-100.0); Mean Platelet Volume 11.4 fL (9.4-12.4); Monocytes # 1.4 K/mcL (0.0-1.3); Monocytes % 8.6 %; Red Blood Count 3.51 M/mcL (4.19-5.50); Red Cell Distribution Width 17.2 % (11.5-14.5)
[2016-06-05 07:02] LABS: Platelet Count 74 K/mcL (140-400)
[2016-06-05 07:13] LABS: Albumin 2.2 g/dL (3.5-5.0); Albumin/Globulin Ratio 0.6 (1.1-2.2); Calcium 8.8 mg/dL (8.6-10.8); Globulin 3.9 g/dL (2.4-3.5); Phosphorous 1.7 mg/dL (2.3-4.7); Total Protein 6.1 g/dL (6.0-8.3)
[2016-06-05 07:37] LABS: Platelet Estimate Decreased (Normal)
[2016-06-05] MEDS ORDERED: 0.9 % Sodium Chloride 250 ML IVC PRN ×3 (08:23→15:12)
--- NOTE | 2016-06-05 08:23 | Nephrology Progress Note ---
Date of Encounter: 06/05/16 Time of Encounter: 08:21 - Assessment and Plan (1) ESRD (end stage renal disease) Current Visit: Yes Status: Acute The patient will undergo dialysis today with a 4K bath and no heparin. (2) Atrial fibrillation with RVR Current Visit: Yes Status: Acute (3) Acute and chronic respiratory failure Current Visit: Yes Status: Acute Qualifiers: Respiratory failure complication: hypoxia Qualified Code(s): J96.21 - Acute and chronic respiratory failure with hypoxia Subjective Principal diagnosis: difficulty in breathing Interval history: The patient remains on the ventilator. EGD yesterday reportedly showed no active bleeding sites. Patient is scheduled for his usual dialysis today. Objective - Vital Signs Vital signs: Vital Signs Temp Pulse Pulse Pulse Pulse Resp Resp 06/05/16 07:45 21 06/05/16 07:42 98.1 F 06/05/16 06:00 113 30 06/05/16 05:09 98.9 F 06/05/16 05:00 108 28 06/05/16 04:03 31 06/05/16 04:00 98.9 F 100 31 06/05/16 03:00 100 29 06/05/16 02:00 102 30 06/05/16 01:49 29 06/05/16 01:00 127 24 06/05/16 00:06 101.3 F H 06/05/16 00:00 112 34 06/04/16 23:00 121 29 06/04/16 22:00 99 35 06/04/16 21:30 37 06/04/16 21:00 115 30 06/04/16 20:02 25 06/04/16 20:00 114 28 06/04/16 19:55 99 F 06/04/16 19:00 125 29 06/04/16 18:00 128 31 06/04/16 17:18 26 06/04/16 17:00 107 30 06/04/16 16:58 137 117 131 28 06/04/16 16:40 31 06/04/16 16:00 123 34 06/04/16 15:57 97.6 F 06/04/16 15:00 108 27 06/04/16 14:05 30 06/04/16 14:00 100 27 06/04/16 13:00 96 28 06/04/16 12:13 99.1 F 06/04/16 12:00 99.1 F 88 26 06/04/16 11:00 93 25 06/04/16 10:00 93 23 06/04/16 09:00 79 25 Resp Resp BP BP BP BP Pulse Ox 06/05/16 07:45 100 06/05/16 07:42 06/05/16 06:00 157/70 100 06/05/16 05:09 06/05/16 05:00 146/68 100 06/05/16 04:03 99 06/05/16 04:00 157/67 99 06/05/16 03:00 140/81 100 06/05/16 02:00 121/74 100 06/05/16 01:49 137/64 99 06/05/16 01:00 154/87 100 06/05/16 00:06 06/05/16 00:00 100 06/04/16 23:00 137/77 100 06/04/16 22:00 125/78 99 06/04/16 21:30 98 06/04/16 21:00 142/76 98 06/04/16 20:02 100 06/04/16 20:00 147/79 98 06/04/16 19:55 06/04/16 19:00 142/82 100 06/04/16 18:00 160/74 100 06/04/16 17:18 107/55 100 06/04/16 17:00 107/55 100 06/04/16 16:58 20 24 141/88 139/66 107/55 06/04/16 16:40 146/96 97 06/04/16 16:00 146/96 97 06/04/16 15:57 06/04/16 15:00 149/82 95 06/04/16 14:05 139/65 90 06/04/16 14:00 139/65 95 06/04/16 13:00 142/77 100 06/04/16 12:13 06/04/16 12:00 154/79 100 06/04/16 11:00 121/63 98 06/04/16 10:00 128/65 100 06/04/16 09:00 121/70 98 Intake and Output 06/04/16 06/05/16 06/05/16 23:59 07:59 15:59 Intake Total 100 / 100 Output Total 50 / 50 615 / 615 Balance 50 / 50 -615 / -615 Intake: IV Fluids 100 / 100 Ampicillin 2 GM In 0.9 % 100 / 100 Sodium Chloride (Mini-Bag +) 100 ML @ 200 mls/hr IVPB BID [facility] Rx#: [id number] Output: Urine 0 / 0 0 / 0 Urethral ([place]) 0 / 0 0 / 0 Rectal Tube 500 / 500 Catheter 50 / 50 115 / 115 Other: Weight 57.697 kg Patient Weight 06/05/16 23:59 Weight 57.697 kg - General Appearance Exam: Patient is on the ventilator. He appears a bit restless. Vital signs are stable. Urine output is recorded is only 90 mL for the past 24 hours. Lungs coarse breath sounds. Heart irregular rate and rhythm consistent with atrial fibrillation. Abdomen is benign. PEG tube is in place. There is no peripheral edema. His atenolol dialysis catheter in the right chest. - Lab 06/05/16 06:18 06/05/16 06:18 Most recent lab results ABG pH 7.50 pH Units (7.32-7.45) H 06/05/16 04:31 ABG pCO2 39 mmHg (35-45) 06/05/16 04:31 ABG pO2 86 mmHg (85-104) 06/05/16 04:31 ABG HCO3 30.4 mEQ/L (21-27) H 06/05/16 04:31 ABG O2 Saturation 97 % (95-98) 06/05/16 04:31 Calcium 8.8 mg/dL (8.6-10.8) 06/05/16 06:18 Phosphorus 1.7 mg/dL (2.3-4.7) L 06/05/16 06:18 Magnesium 1.9 mg/dL (1.6-2.6) 06/02/16 04:51 - VTE Documentation of Mechanical Device: Intermittent pneumatic compression device Consult Discharge Plan - Plan Referrals: NO,PCP [Primary Care Provider] -
[2016-06-05] MEDS: Chlorhexidine Rinse 15 ML MOUTHWASH MM SCH ×2 (08:31→21:29)
[2016-06-05] MEDS: Nystatin SUSP 5 ML UD.LIQ PO SCH ×4 (08:31→21:29)
[2016-06-05] MEDS: Lacri-Lube 3.5 GM TUBE BOTH EYES SCH ×2 (08:32→21:32)
[2016-06-05] MEDS: Ampicillin 2 GM in 0.9 % Sodium Chloride Mini Bag 100 ML IVPB SCH ×2 (08:32→17:02)
[2016-06-05] MEDS: Pantoprazole 40 MG VIAL IVP SCH ×2 (08:36→17:03)
[2016-06-05] MEDS ORDERED: 0.9 % Sodium Chloride 2,000 ML ONE (09:07)
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
[2016-06-05] MEDS ORDERED: Naloxone 0.4 MG/ML INJ IVP PRN (15:12)
[2016-06-05] MEDS ORDERED: 0.9 % Sodium Chloride 1,000 ML PRIME SCH (15:12)
[2016-06-05] MEDS ORDERED: Darbepoetin 25 MCG/0.42 ML SYRINGE SQ SCH (16:15)
[2016-06-05] MEDS ORDERED: Ampicillin 2 GM in 0.9 % Sodium Chloride Mini Bag 100 ML IVPB SCH (17:00)
[2016-06-06] MEDS: Ampicillin 2 GM in 0.9 % Sodium Chloride Mini Bag 100 ML IVPB SCH ×3 (00:46→17:24)
[2016-06-06] MEDS: Pantoprazole 40 MG VIAL IVP SCH ×2 (05:43→17:28)
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
--- NOTE | 2016-06-06 08:57 | Nephrology Progress Note ---
Date of Encounter: 06/06/16 Time of Encounter: 08:30 - Assessment and Plan (1) ESRD (end stage renal disease) Current Visit: Yes Status: Acute Afib, rate 114. HD tomorrow, keeping MWF schedule. Subjective Principal diagnosis: difficulty in breathing Interval history: Trach > vent. Alert, focuses. Objective - Vital Signs Vital signs: Vital Signs Temp Pulse Resp BP Pulse Ox 06/06/16 07:52 27 149/97 99 06/06/16 07:42 98.7 F 06/06/16 06:00 114 35 149/97 99 06/06/16 04:02 98.4 F 06/06/16 04:00 116 34 120/73 99 06/06/16 02:00 112 33 138/65 99 06/06/16 00:15 97.6 F 06/06/16 00:00 100 30 149/75 100 06/05/16 22:00 97 32 142/69 100 06/05/16 21:45 25 97 06/05/16 20:51 99.1 F 06/05/16 20:00 98 33 136/65 100 06/05/16 19:53 34 98 06/05/16 18:44 31 99 06/05/16 18:00 122 31 117/81 99 06/05/16 17:03 147/91 06/05/16 17:00 102.2 F H 146 34 147/91 99 06/05/16 16:00 132 31 144/90 99 06/05/16 15:48 24 94 06/05/16 15:36 100.5 F H 06/05/16 15:00 144 22 147/86 99 06/05/16 14:00 128 35 117/69 99 06/05/16 13:16 34 99 06/05/16 13:00 122 35 95/72 99 06/05/16 12:45 98.3 F 19 120/59 06/05/16 12:40 118/78 06/05/16 12:25 107/67 06/05/16 12:10 134/73 06/05/16 12:00 121 35 138/59 99 06/05/16 11:55 137/76 06/05/16 11:41 97.0 F L 06/05/16 11:40 147/67 06/05/16 11:25 158/80 06/05/16 11:22 31 99 06/05/16 11:10 130/74 06/05/16 11:00 92 35 144/69 99 06/05/16 10:55 137/94 06/05/16 10:35 147/74 06/05/16 10:25 148/79 06/05/16 10:10 162/93 06/05/16 10:00 110 31 147/72 99 06/05/16 09:55 169/93 06/05/16 09:48 26 99 06/05/16 09:40 98.1 F 18 167/93 06/05/16 09:00 98 24 172/84 100 Intake and Output 06/05/16 06/06/16 06/06/16 23:59 07:59 15:59 Intake Total 200 / 200 100 / 100 Output Total 235 / 235 Balance 190 / 190 -135 / -135 Intake: IV Fluids 200 / 200 100 / 100 Ampicillin 2 GM In 0.9 % 100 / 100 100 / 100 Sodium Chloride (Mini-Bag +) 100 ML @ 200 mls/hr IVPB Q8H [facility] Rx#: [id number] Rocephin 2,000 MG In 100 / 100 Dextrose 5% (Minibag+) 100 ML 100 ML @ 200 mls/ hr IVPB Q12H [facility] Rx#: [id number] Output: Rectal Tube 200 / 200 Catheter 35 / 35 Other: Weight 58.7 kg Patient Weight 06/06/16 23:59 Weight 58.7 kg - General Appearance General appearance: Present: frail EENT: Present: mucous membranes moist Additional Comments: diminished throughout Cardiology: Present: no edema, irregular rhythm Gastrointestinal: Present: hypoactive bowel sounds, no tenderness, no guarding Integumentary: Present: warm and dry Psychiatric: Present: mood/affect appropriate, cooperative - Lab 06/05/16 06:18 06/05/16 06:18 Most recent lab results ABG pH 7.50 pH Units (7.32-7.45) H 06/05/16 04:31 ABG pCO2 39 mmHg (35-45) 06/05/16 04:31 ABG pO2 86 mmHg (85-104) 06/05/16 04:31 ABG HCO3 30.4 mEQ/L (21-27) H 06/05/16 04:31 ABG O2 Saturation 97 % (95-98) 06/05/16 04:31 Calcium 8.8 mg/dL (8.6-10.8) 06/05/16 06:18 Phosphorus 1.7 mg/dL (2.3-4.7) L 06/05/16 06:18 Magnesium 1.9 mg/dL (1.6-2.6) 06/02/16 04:51 - VTE Documentation of Mechanical Device: Intermittent pneumatic compression device Consult Discharge Plan - Plan Referrals: NO,PCP [Primary Care Provider] -
[2016-06-06] MEDS: Lacri-Lube 3.5 GM TUBE BOTH EYES SCH ×2 (09:00→20:20)
--- NOTE | 2016-06-06 09:30 | Event Note ---
Date of Encounter: 06/06/16 Time of Encounter: 09:28 I called Mrs. Foster on her cell phone to discuss CHIQUITA. Indications, risks, and complications were discussed. She readily verbally consented and will be visiting this afternoon.
[2016-06-06] MEDS: Chlorhexidine Rinse 15 ML MOUTHWASH MM SCH ×2 (10:03→20:07)
[2016-06-06] MEDS: Nystatin SUSP 5 ML UD.LIQ PO SCH ×3 (10:03→17:25)
[2016-06-06 10:04] LABS: Calcium 8.5 mg/dL (8.6-10.8); Potassium 3.8 mEq/L (3.5-4.5)
[2016-06-06] MEDS ORDERED: *HR* Midazolam HCl 5 MG/5 ML VIAL IVP ONE ×4 (10:40→11:58)
[2016-06-06] MEDS ORDERED: *HR* FentaNYL (PF) 100 MCG/2 ML VIAL ONE (10:41)
[2016-06-06] MEDS ORDERED: *HR* FentaNYL (PF) 100 MCG/2 ML VIAL IVP ONE (11:56)
[2016-06-06] MEDS: *HR* Heparin 5,000 UNIT/ML VIAL SQ SCH ×2 (14:22→17:28)
[2016-06-06] MEDS ORDERED: 0.9 % Sodium Chloride 250 ML ONE (17:22)
--- NOTE | 2016-06-06 18:20 | ECHO - Doppler Report ---
Cancelled Procedure Name: Lowell Foster Date of Study: 06/06/2016 Date: 1935 Ht: 68.0 in Medical Record#: [id number] Age: 81 Wt: 129.0 lb Gender: Male BSA: 1.7 Order #: [id number] Location: [facility] Room #: ICO6 Reading Physician: Claire Johnson DO Senior Engineering Associate: Prashanth Dickson NAVEEN Ordering Physician: Tio Kaye DO Primary Physician: None Indications: Evaluate for endocarditis Impressions: Unsuccessful attempt at probe insertion. CHIQUITA was aborted. Findings: Study Quality * Technically sub-optimal due to clinical status. Patient with history of tracheostomy and PEG tube. History Measurements: 2D Normal Values LA volume: Updated by Claire Johnson on 06/06/2016 6:13:19 PM electronically signed on 06/06/2016 6:14:17 PM with status of [employer] [place]: 1=Normal, 2=Hypokinesis, 3=Akinesis, 4=Dyskinesis, 5=Aneurysmal, 6=Hyperkinetic, X=Not Visualized (Blank)=Missing
[2016-06-06 19:25] LABS: Acinetobacter baumannii by PCR Not Detected (Not Detect); Candida albicans by PCR Not Detected (Not Detect); Candida glabrata by PCR Not Detected (Not Detect); Candida krusei by PCR Not Detected (Not Detect); Candida parapsilosis by PCR Not Detected (Not Detect); Candida tropicalis by PCR Not Detected (Not Detect); Enterococcus by PCR ***DETECTED*** (Not Detect); Escherichia coli by PCR Not Detected (Not Detect); Klebsiella oxytoca by PCR Not Detected (Not Detect); Klebsiella pneumoniae by PCR Not Detected (Not Detect); Pseudomonas aeruginosa by PCR Not Detected (Not Detect); Serratia marcescens by PCR Not Detected (Not Detect); Staphylococcus aureus by PCR Not Detected (Not Detect); Streptococcus agalactiae(B)PCR Not Detected (Not Detect); Streptococcus by PCR Not Detected (Not Detect); Streptococcus pneumoniae PCR Not Detected (Not Detect); Streptococcus pyogenes (A) PCR Not Detected (Not Detect); vanA/B Vancomycin-Resist Genes Not Detected (Not Detect)
[2016-06-07] MEDS: Ampicillin 2 GM in 0.9 % Sodium Chloride Mini Bag 100 ML IVPB SCH ×3 (00:33→16:29)
[2016-06-07] MEDS: Haloperidol Lactate 5 MG/ML VIAL IVP PRN (04:23)
[2016-06-07] MEDS: *HR* Heparin 5,000 UNIT/ML VIAL SQ SCH ×2 (04:23→18:06)
[2016-06-07] MEDS: Pantoprazole 40 MG VIAL IVP SCH ×2 (04:23→18:24)
[2016-06-07] MEDS ORDERED: 0.9 % Sodium Chloride 250 ML IVC PRN (09:19)
--- NOTE | 2016-06-07 09:19 | Nephrology Progress Note ---
Date of Encounter: 06/07/16 Time of Encounter: 09:18 - Assessment and Plan (1) ESRD (end stage renal disease) Current Visit: Yes Status: Acute The patient will undergo dialysis today with a 4K bath and no heparin. (2) Atrial fibrillation with RVR Current Visit: Yes Status: Acute (3) Acute and chronic respiratory failure Current Visit: Yes Status: Acute Qualifiers: Qualified Code(s): J96.21 - Acute and chronic respiratory failure with hypoxia Subjective Principal diagnosis: difficulty in breathing Interval history: Patient remains on the ventilator. He nods in response to questions. Apparently the CHIQUITA procedure was aborted yesterday. He is scheduled for her usual dialysis today. The nurse reports that the patient had been having more issues with rapid ventricular response related to his A. fib during the night. Objective - Vital Signs Vital signs: Vital Signs Temp Pulse Pulse Pulse Pulse Pulse Pulse 06/07/16 08:34 98.0 F 111 06/07/16 03:57 98.9 F 111 06/07/16 03:35 06/06/16 23:59 98.9 F 109 06/06/16 22:32 06/06/16 20:45 98.2 F 112 06/06/16 20:00 111 06/06/16 17:40 06/06/16 17:16 113 06/06/16 16:41 98.2 F 113 06/06/16 15:59 06/06/16 15:30 119 06/06/16 13:50 110 06/06/16 13:05 06/06/16 12:00 101 06/06/16 11:39 98 105 102 100 100 06/06/16 11:38 06/06/16 09:30 118 Resp Resp Resp Resp Resp Resp BP 06/07/16 08:34 25 143/85 06/07/16 03:57 22 151/75 06/07/16 03:35 31 106/67 06/06/16 23:59 22 108/67 06/06/16 22:32 31 06/06/16 20:45 20 88/66 06/06/16 20:00 06/06/16 17:40 113/66 06/06/16 17:16 06/06/16 16:41 31 99/73 06/06/16 15:59 28 06/06/16 15:30 29 151/88 06/06/16 13:50 28 145/71 06/06/16 13:05 27 144/88 06/06/16 12:00 29 136/74 06/06/16 11:39 28 24 22 22 26 06/06/16 11:38 27 131/75 06/06/16 09:30 36 149/85 BP BP BP BP BP Pulse Ox 06/07/16 08:34 98 06/07/16 03:57 97 06/07/16 03:35 98 06/06/16 23:59 98 06/06/16 22:32 98 06/06/16 20:45 98 06/06/16 20:00 06/06/16 17:40 06/06/16 17:16 06/06/16 16:41 99 06/06/16 15:59 99 06/06/16 15:30 98 06/06/16 13:50 98 06/06/16 13:05 99 06/06/16 12:00 99 06/06/16 11:39 125/71 131/69 130/69 136/97 123/74 06/06/16 11:38 97 06/06/16 09:30 98 Intake and Output 06/06/16 06/07/16 06/07/16 23:59 07:59 15:59 Intake Total 100 / 100 Balance 100 / 100 Intake: IV Fluids 100 / 100 Ampicillin 2 GM In 0.9 % 100 / 100 Sodium Chloride (Mini-Bag +) 100 ML @ 200 mls/hr IVPB Q8H [facility] Rx#: [id number] Other: Meal Dinner Percent of Meal Consumed 0% Weight 59.3 kg Blood Glucose* 115 101 137 - General Appearance Exam: Patient is in no acute distress. He nods in response to questions. Lungs coarse breath sounds. Heart irregular rate and rhythm. Abdomen is soft. PEG tube is in place. There is no peripheral edema. There is a tunnel dialysis catheter in the right chest. - Lab 06/05/16 06:18 06/06/16 09:40 Most recent lab results ABG pH 7.50 pH Units (7.32-7.45) H 06/05/16 04:31 ABG pCO2 39 mmHg (35-45) 06/05/16 04:31 ABG pO2 86 mmHg (85-104) 06/05/16 04:31 ABG HCO3 30.4 mEQ/L (21-27) H 06/05/16 04:31 ABG O2 Saturation 97 % (95-98) 06/05/16 04:31 Calcium 8.5 mg/dL (8.6-10.8) L 06/06/16 09:40 Phosphorus 1.7 mg/dL (2.3-4.7) L 06/05/16 06:18 Magnesium 1.9 mg/dL (1.6-2.6) 06/02/16 04:51 - VTE Documentation of Mechanical Device: Intermittent pneumatic compression device Consult Discharge Plan - Plan Referrals: NO,PCP [Primary Care Provider] - (pt is from [facility] 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
--- NOTE | 2016-06-07 09:23 | Pulmonology Progress Note ---
Date of Encounter: 06/07/16 Time of Encounter: 08:15 Assessment and Plan (1) Chronic respiratory failure with hypoxia Current Visit: Yes Status: Acute This patient is ventilator dependent presumably related to unresolved pulmonary edema necessitating hemodialysis support for treatment and control of the same. The patient does notably have growth of Acinetobacter from sputum however I believe this is a colonizer and not a source of infection and respiratory failure. Given the multidrug resistant pattern of Acinetobacter, the patient remains in isolation. She is not a candidate for ventilator weaning and will be maintained on long-term ventilator support. Code(s): J96.11 - Chronic respiratory failure with hypoxia SNOMED Code(s): 000404500 (2) ESRD (end stage renal disease) Current Visit: Yes Status: Acute The etiology of renal failure is uncertain but nonetheless, the patient requires dialytic support. Continue the same management per Dr. Archuleta. Code(s): N18.6 - End stage renal disease SNOMED Code(s): 91224376 (3) Bacteremia associated with intravascular line Current Visit: Yes Status: Acute Patient has documented enterococcal bacteremia from specimens obtained through [facility] and repeat blood cultures from 4 2717 redemonstrated Gram- positive cocci and probable growth of enterococcus. The patient remains on dual antibiotic therapy for treatment of the same. Transesophageal echo was attempted yesterday but was unsuccessful, performed to exclude or verify the presence of valvular lesions. More likely, the patient has a hemodialysis catheter source of infection, I spoke with Dr. Archuleta and the plan is to remove the device following hemodialysis today. Furthermore, the patient does have a dual-chamber pacemaker as another potential nidus of persistent bacteremia. Obviously, if the patient bloodstream cannot be cleared, the dual- chamber pacemaker name may need to be explanted. Although not ideal, a surface echocardiogram has been ordered to better discern valvular abnormalities. Qualifiers: Encounter type: subsequent encounter Qualified Code(s): T82.7XXD - Infection and inflammatory reaction due to other cardiac and vascular devices, implants and grafts, subsequent encounter; R78.81 - Bacteremia Code(s): T82.7XXA - Infection and inflammatory reaction due to other cardiac and vascular devices, implants and grafts, initial encounter; R78.81 - Bacteremia SNOMED Code(s): 314597178 (4) Atrial fibrillation with RVR Current Visit: Yes Status: Acute Reportedly, this patient has preservation of LV function. Atrial fibrillation is rate controlled with medication is the goal, the patient is not an anticoagulation candidate in light of recurrent presumed acute blood loss anemia (history of heme positive stool and significant anemia necessitating blood transfusion). Code(s): I48.91 - Unspecified atrial fibrillation SNOMED Code(s): 028566848875362 Subjective Principal diagnosis: Chronic respiratory failure with hypoxia, tracheostomy status Interval history: This patient was transferred out of the intensive care unit yesterday to [facility]. He is ventilator dependent. He has end-stage renal disease and requires dialytic support. He receives feeding via PEG tube. He was initially transferred from [facility] given anemia concern for GI bleed. EGD performed here revealed esophagitis Ksenia and candidal gastritis but otherwise no bleeding source was noted. He did require blood transfusion at the time of admission but his hemoglobins have remained fairly stable. Additionally, the patient has atrial fibrillation is on rate control medication is not a candidate for regulation in spite of his risk for stroke. Furthermore, the patient has enterococcal bacteremia and in spite of appropriate antimicrobial therapy remains persistently bacteremic. A transesophageal echo was attempted yesterday but the back up scan coordinator was unable to pass the probe and a surface echo is pending. Additionally, it is suspected the patient's hemodialysis catheter may be the source of enterococcal bacteremia and I suspect this will need to be removed. Jovanni, the patient also has a dual-chamber pacemaker which may also potentially be infected and at some point if he cannot clear bacteremia following removal of hemodialysis catheter that this may also need to be explanted. The patient also has delirium. He is intermittently agitated. He sleeps poorly. He has been on Seroquel which needs to be adjusted upwards for control of delirium and agitation. Within the ICU setting, we have attempted to discontinue any sedating drugs and benzodiazepines. This patient's prognosis is relatively poor and despite of discussions with the spouse, she continues to wish full aggressive medical measures. Objective PUL Vital signs: Last Vital Signs Temp 98.0 F 06/07/16 08:34 Pulse 111 06/07/16 08:34 Resp 25 06/07/16 08:34 BP 143/85 06/07/16 08:34 Pulse Ox 98 06/07/16 08:34 General appearance: no acute distress, other (Elderly male, mildly agitated, vitals reviewed) Eyes: nonicteric ENT: other (Dry oral mucosa tracheostomy device in place stoma with minimal secretions.) Mallampati (class): 2 Neck: no JVD Auscultation: bilateral: diminished breath sounds, other (Course bilateral breath sounds, moderate mucoid secretions with suctioning of tracheostomy device.) Cardiovascular: irregular rhythm, other (Obvious murmur not noted to auscultation. The pulse generator was noted over the left subclavian region.) Gastrointestinal: normoactive bowel sounds, non-distended, other (PEG tube in place) Integumentary: normal Extremities: no cyanosis, other (Note absence of extremity edema, atrophy of muscles) non-focal exam, other (The patient is awake and alert however is unable to follow commands. He does not engage with caregivers. There are no focal motor deficits.) A right subclavian IJ permacath is noted, the site is clean and dry Ventilator Settings Ventilator Settings: Ventilator Settings, Last 8 Hours Ventilator Mode VC+ Ventilator Tidal Volume 450 Setting Ventilator Respiratory Rate 14 Setting Actual Respiratory Rate 34 Positive End Expiratory 5 Pressure Peak Inspiratory Airway 22 Pressure Results - Laboratory Findings CBC and BMP: 06/05/16 06:18 06/06/16 09:40 ABG ABG pH 7.50 pH Units (7.32-7.45) H 06/05/16 04:31 ABG pCO2 39 mmHg (35-45) 06/05/16 04:31 ABG pO2 86 mmHg (85-104) 06/05/16 04:31 ABG O2 Saturation 97 % (95-98) 06/05/16 04:31 PT/INR, D-dimer PT 14.3 Seconds (9.4-12.1) H 05/31/16 21:30 Abnormal lab findings: Abnormal lab results WBC 16.1 K/mcL (4.3-11.1) H 06/05/16 06:18 RBC 3.51 M/mcL (4.19-5.50) L 06/05/16 06:18 Hgb 9.6 g/dL (12.9-16.9) L 06/05/16 06:18 Hct 31.1 % (37.5-50.1) L 06/05/16 06:18 MCH 27.4 pg (28.0-33.3) L 06/05/16 06:18 MCHC 30.9 g/dL (31.6-35.5) L 06/05/16 06:18 RDW 17.2 % (11.5-14.5) H 06/05/16 06:18 Plt Count 74 K/mcL (140-400) L 06/05/16 06:18 Immature Gran % 11.3 % (0-4) H 06/05/16 06:18 Band Neutrophils % 11.0 % (0-4) H 06/02/16 04:51 Neutrophils # 12.0 K/mcL (1.6-8.9) H 06/05/16 06:18 Monocytes # 1.4 K/mcL (0.0-1.3) H 06/05/16 06:18 Toxic Granulation Present (Not Present) A 06/02/16 04:51 Platelet Estimate Decreased (Normal) L 06/05/16 06:18 Hypochromasia Present (Not Present) A 06/03/16 04:15 PT 14.3 Seconds (9.4-12.1) H 05/31/16 21:30 ABG pH 7.50 pH Units (7.32-7.45) H 06/05/16 04:31 ABG HCO3 30.4 mEQ/L (21-27) H 06/05/16 04:31 ABG Total CO2 31.6 mEq/L (20-26) H 06/05/16 04:31 ABG Base Excess 6.7 mEq/L (-2.0 to 3.0) H 06/05/16 04:31 Sodium 149 mEq/L (136-145) H 06/06/16 09:40 Chloride 111 mEq/L (98-109) H 06/06/16 09:40 BUN 52 mg/dL (8-26) H 06/06/16 09:40 Creatinine 2.83 mg/dL (0.72-1.25) H 06/06/16 09:40 Est GFR ( Amer) 26 (> 60) L 06/06/16 09:40 Est GFR (Non-Af Amer) 22 (> 60) L 06/06/16 09:40 Glucose 133 mg/dL (70-99) H 06/06/16 09:40 POC Glucose 101 (58-89) H 06/07/16 04:02 Calculated Osmolality 324 (280-300) H 06/06/16 09:40 Calcium 8.5 mg/dL (8.6-10.8) L 06/06/16 09:40 Phosphorus 1.7 mg/dL (2.3-4.7) L 06/05/16 06:18 Iron 56 mcg/dL (65-175) L 06/03/16 04:15 Transferrin 93 mg/dL (174-364) L 06/03/16 04:15 Ferritin 2435 ng/ml (22-275) H 06/02/16 04:51 AST 37 Units/L (5-34) H 06/05/16 06:18 ALT 62 Units/L (0-55) H 06/05/16 06:18 Alkaline Phosphatase 166 Units/L (38-126) H 06/05/16 06:18 C-Reactive Protein 136 mg/L (Less than 5) H 05/31/16 21:30 Albumin 2.2 g/dL (3.5-5.0) L 06/05/16 06:18 Globulin 3.9 g/dL (2.4-3.5) H 06/05/16 06:18 Albumin/Globulin Ratio 0.6 (1.1-2.2) L 06/05/16 06:18 Vitamin B12 1328 pg/mL (213-816) H 06/02/16 04:51 Stool Occult Blood Positive (Negative) A 06/03/16 04:07 Enterococcus sp PCR DETECTED (Not Detect) A 06/05/16 03:20 - Microbiology Findings Microbiology Findings: Microbiology, Last 48 Hours 06/05/16 03:20 Blood Culture - Preliminary Peripheral Venipuncture Gram Positive Cocci - Chains 06/05/16 03:23 Blood Culture - Preliminary Peripheral Venipuncture No growth. 06/02/16 09:42 Sputum Culture - Final Sputum Acinetobacter jo ann/haem MDRO - Clinical Findings Intake & Output: Intake & Output 06/06/16 06/07/16 06/07/16 23:59 07:59 15:59 Intake Total 100 / 100 Balance 100 / 100 Weight 59.3 kg - VTE Documentation of Mechanical Device: Intermittent pneumatic compression device Consult Discharge Plan - Plan Referrals: NO,PCP [Primary Care Provider] - (pt is from ECF 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
--- NOTE | 2016-06-07 09:43 | Event Note ---
Date of Encounter: 06/07/16 Time of Encounter: 09:43 The patient has persistently positive blood cultures. Therefore, requested following dialysis today the patient have his tunneled dialysis catheter removed and he had a catheter holiday in hopes of clearing his bacteremia.
[2016-06-07] MEDS: Chlorhexidine Rinse 15 ML MOUTHWASH MM SCH ×2 (09:45→20:48)
[2016-06-07] MEDS: Lacri-Lube 3.5 GM TUBE BOTH EYES SCH ×2 (09:45→20:49)
[2016-06-07] MEDS: Nystatin SUSP 5 ML UD.LIQ PO SCH ×4 (09:46→20:48)
--- NOTE | 2016-06-07 11:07 | ECHO - Doppler Report ---
Echocardiogram Name: Lowell Foster Date of Study: 06/06/2016 Date: 1935 Ht: 75.0 in Medical Record#: [id number] Age: 81 Wt: 129.0 lb Gender: Male BSA: 1.82 Order #: [id number] Location: [facility] Room #: 2N05 Reading Physician: Mikel Urbano DO, KEYONNA, NENO SANCHEZ Technical Education Teacher: Chyna Dos Santos RDCS Ordering Physician: Toi Kaye DO Primary Physician: None Indications: Evaluate for endocarditis Impressions: LVEF 60-65%. Normal LV chamber size, wall thickness and function. Indeterminate diastolic function. Mildly dilated right ventricle with normal function. Moderately dilated left atrium. Moderately dilated right atrium. Mild aortic regurgitation. Mild mitral regurgitation. Mild tricuspid regurgitation. Mild pulmonary hypertension. Estimated RVSP is 44 mmHg. No evidence of endocarditis on this study. Left Ventricular Wall Motion: Rest Echo Findings All wall segments showed normal motion. Findings: Study Quality * Technically adequate exam. ECG Findings * Atrial fibrillation. Left Ventricle * LVEF 60-65%. * Normal LV chamber size, wall thickness and function. * Indeterminate diastolic function. Right Ventricle * Mildly dilated right ventricle with normal function. Left Atrium * Moderately dilated left atrium. Right Atrium * Moderately dilated right atrium. Aortic Valve * Trileaflet aortic valve. * Mildly calcified annulus and between the right and non coronary cusps. * Mild aortic regurgitation. * No aortic stenosis. Mitral Valve * Mild mitral annular calcification * Mildly thickened mitral valve leaflets. * Mild mitral regurgitation. * No mitral stenosis. Tricuspid Valve * Normal tricuspid valve structure. * Mild tricuspid regurgitation. * Mild pulmonary hypertension. * Estimated RVSP is 44 mmHg. Pulmonic Valve * Normal pulmonic valve structure. * Mild pulmonic regurgitation. Aorta * Normally sized aortic root. Pericardium * The pericardium appears normal. IVC * Normal IVC dimensions and inspiratory collapse. Pulmonary Artery * Normal visualized portions of the main pulmonary artery. History Congestive Heart Failure Measurements: BP: 145/ 71 2D Normal Values RVIDd: 3.17 cm <2.7 cm IVSd: 1.17 cm 0.6 - 1.0 cm LVIDd: 4.86 cm 3.7 - 5.6 cm LVPWd: .98 cm 0.6 - 1.1 cm LVIDs: 2.77 cm 1.5 - 3.6 cm AO: 2.90 cm < 4.0 cm LA: 2.60 cm 2.0 - 4.0cm %FS: 43.00 cm >25 % LA volume: 68 Mitral Valve Peak E:1.18 m/sec Aortic Valve AI pressure Half-time: 548.00 msec Tricuspid Valve TV Regurg Peak Grad: 39.00mmHg Updated by Mikel Urbano DO, KEYONNA, LAURA, NENO on 06/07/2016 11:00:01 AM electronically signed on 06/07/2016 11:00:26 AM with status of Final Wall Motion [place]: 1=Normal, 2=Hypokinesis, 3=Akinesis, 4=Dyskinesis, 5=Aneurysmal, 6=Hyperkinetic, X=Not Visualized (Blank)=Missing
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
--- NOTE | 2016-06-07 14:57 | IR Procedure Note ---
Date of procedure: 06/07/16 Consent Obtained: Verbal consent, Written consent Timeout: Correct patient and procedure verified, Correct site verified, Time out performed, Skin prep completed Local anesthetic: Lidocaine 1% Indications: bacteremia Procedure Performed: tunneled dialysis catheter removal Site/Technique: RIJ Results/Findings: tip sent for cx Estimated blood loss (cc): 1 Complications: None; Tolerated procedure well Post Procedure Treatment Plan: return to banks
[2016-06-07] MEDS ORDERED: 0.9 % Sodium Chloride 1,000 ML ONE (15:18)
[2016-06-07 16:54] LABS: Calcium 8.4 mg/dL (8.6-10.8); Potassium 3.2 mEq/L (3.5-4.5)
[2016-06-07 16:59] LABS: Basophils % 0.2 %; Eosinophils % 0.1 %; Hematocrit 28.3 % (37.5-50.1); Hemoglobin 9.1 g/dL (12.9-16.9); Immature Granulocytes % 6.1 % (0-4); Immature Platelets 6.1 % (1.1-6.1); Lymphocytes # 0.3 K/mcL (0.6-4.6); Mean Corpuscular HGB Conc 32.2 g/dL (31.6-35.5); Mean Corpuscular Hemoglobin 28.4 pg (28.0-33.3); Mean Corpuscular Volume 88.4 fL (83.0-100.0); Mean Platelet Volume 11.2 fL (9.4-12.4); Monocytes % 7.9 %; Neutrophils # 10.6 K/mcL (1.6-8.9); Red Cell Distribution Width 17.3 % (11.5-14.5); Segmented Neutrophils % 83.7 %
[2016-06-07 17:29] LABS: Platelet Count 66 K/mcL (140-400)
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
[2016-06-07] MEDS ORDERED: Ampicillin/Sulbactam 3,000 MG in 0.9 % Sodium Chloride Mini Bag 100 ML IVPB SCH (18:00)
[2016-06-07] MEDS: 0.9 % Sodium Chloride 1,000 ML IVC SCH (19:45)
[2016-06-07] MEDS ORDERED: 0.9 % Sodium Chloride 2,000 ML ONE (20:24)
[2016-06-08] MEDS: Ampicillin/Sulbactam 3,000 MG in 0.9 % Sodium Chloride Mini Bag 100 ML IVPB SCH (00:13)
[2016-06-08 00:57] LABS: Basophils % 0.1 %
[2016-06-08 00:58] LABS: Eosinophils % 0.1 %; Hematocrit 27.7 % (37.5-50.1); Hemoglobin 8.7 g/dL (12.9-16.9); Immature Granulocytes % 5.7 % (0-4); Immature Platelets 5.5 % (1.1-6.1); Lymphocytes # 0.4 K/mcL (0.6-4.6); Lymphocytes % 4.1 %; Mean Corpuscular HGB Conc 31.4 g/dL (31.6-35.5); Mean Corpuscular Hemoglobin 28.1 pg (28.0-33.3); Mean Corpuscular Volume 89.4 fL (83.0-100.0); Mean Platelet Volume 11.7 fL (9.4-12.4); Monocytes # 0.9 K/mcL (0.0-1.3); Monocytes % 9.8 %; Neutrophils # 7.2 K/mcL (1.6-8.9); Red Cell Distribution Width 17.3 % (11.5-14.5); Segmented Neutrophils % 80.2 %
[2016-06-08 01:10] LABS: Calcium 8.2 mg/dL (8.6-10.8); Potassium 3.2 mEq/L (3.5-4.5)
[2016-06-08 01:11] LABS: Platelet Count 65 K/mcL (140-400)
[2016-06-08 01:38] LABS: Anisocytosis 1+ (Not Present); Hypochromasia Present (Not Present); Platelet Estimate Decreased (Normal)
[2016-06-08] MEDS: *HR* Heparin 5,000 UNIT/ML VIAL SQ SCH ×2 (04:54→18:28)
[2016-06-08] MEDS: Pantoprazole 40 MG VIAL IVP SCH ×2 (06:44→18:29)
[2016-06-08] MEDS: Potassium Chloride Elixir 20 MEQ/15 ML UDC GTUBE SCH ×2 (09:01→22:10)
[2016-06-08] MEDS: Chlorhexidine Rinse 15 ML MOUTHWASH MM SCH ×2 (09:02→22:11)
[2016-06-08] MEDS: Lacri-Lube 3.5 GM TUBE BOTH EYES SCH ×2 (09:03→22:11)
[2016-06-08] MEDS: Nystatin SUSP 5 ML UD.LIQ PO SCH ×4 (09:04→22:10)
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
--- NOTE | 2016-06-08 10:08 | Nephrology Progress Note ---
Date of Encounter: 06/08/16 Time of Encounter: 09:50 - Assessment and Plan (1) ESRD (end stage renal disease) Current Visit: Yes Status: Acute Tunneled dialysis catheter removed yesterday. Blood cultures today to determine placement of temporary or tunneled catheter. Subjective Principal diagnosis: Chronic respiratory failure with hypoxia, tracheostomy status Interval history: Trach > vent. Alert, focuses. Objective - Vital Signs Vital signs: Vital Signs Temp Pulse Resp BP Pulse Ox 06/08/16 08:55 32 99/41 100 06/08/16 07:56 97.4 F L 86 16 134/66 10 06/08/16 04:03 98.1 F 86 18 120/63 100 06/08/16 03:50 33 138/78 100 06/08/16 01:45 36 120/61 100 06/08/16 01:00 78 120/61 06/08/16 00:30 98.5 F 84 30 118/64 100 06/08/16 00:00 86 118/64 06/07/16 23:43 31 128/59 100 06/07/16 23:00 82 118/60 06/07/16 22:00 80 109/96 06/07/16 21:52 36 108/57 95 06/07/16 21:00 102 91/52 06/07/16 20:00 92 126/62 06/07/16 19:46 35 114/76 100 06/07/16 19:32 98.7 F 112 15 111/52 100 06/07/16 19:30 128 114/71 06/07/16 19:00 101 111/52 06/07/16 18:45 106 90/63 06/07/16 18:30 133 87/47 06/07/16 18:19 107 114/59 100 06/07/16 18:15 108 114/59 06/07/16 18:00 105 88/56 06/07/16 17:45 100 89/46 06/07/16 17:30 100 73/44 06/07/16 17:04 100.5 F H 114 25 103/78 100 06/07/16 17:01 38 99 06/07/16 17:00 112 84/41 06/07/16 16:45 113 117/72 06/07/16 16:30 114 124/74 06/07/16 16:15 114 119/76 100 04/28/17 16:00 117 112/71 100 06/07/16 15:45 128 104/69 100 06/07/16 15:35 134 127/58 06/07/16 13:47 38 126/50 95 06/07/16 13:30 98.7 F 22 128/46 06/07/16 13:20 128/92 06/07/16 13:05 119/46 06/07/16 12:50 129/49 06/07/16 12:35 126/50 06/07/16 12:20 118/55 06/07/16 12:05 100/58 06/07/16 11:50 124/59 06/07/16 11:35 103/50 06/07/16 11:20 111/48 06/07/16 11:05 107/45 06/07/16 10:50 109/64 06/07/16 10:35 110/61 06/07/16 10:20 99.0 F 24 128/59 Intake and Output 06/07/16 06/08/16 06/08/16 23:59 07:59 15:59 Intake Total 350 / 350 325 / 325 1465 / 1465 Balance 350 / 350 325 / 325 1465 / 1465 Intake: IV Fluids 200 / 200 25 / 25 Cardizem 125 MG In 25 / 25 Dextrose 5% 100 ML @ 5 MG /HR 5 mls/hr IVC .Q24H ERNESTO Rx#:[id number] Ampicillin 2 GM In 0.9 % 100 / 100 Sodium Chloride (Mini-Bag +) 100 ML @ 200 mls/hr IVPB Q8H ERNESTO Rx#: [id number] Rocephin 2,000 MG In 100 / 100 Dextrose 5% (Minibag+) 100 ML 100 ML @ 200 mls/ hr IVPB Q12H ERNESTO Rx#: [id number] Oral 0 / 0 Tube Feeding 1165 / 1165 Free Water 150 / 150 Free Water Intake Amount 150 / 150 300 / 300 150 / 150 Other: Meal Breakfast Percent of Meal Consumed 0% Weight 60.2 kg Blood Glucose* 149 120 Patient Weight 06/08/16 23:59 Weight 60.2 kg - General Appearance General appearance: Present: chronically ill, frail EENT: Present: mucous membranes moist Neck: Present: no JVD Respiratory: Present: rhonchi Cardiology: Present: no edema, irregular rhythm Gastrointestinal: Present: hypoactive bowel sounds, no tenderness Integumentary: Present: warm and dry Psychiatric: Present: mood/affect appropriate - Lab 06/08/16 00:48 06/08/16 00:48 Most recent lab results ABG pH 7.50 pH Units (7.32-7.45) H 06/05/16 04:31 ABG pCO2 39 mmHg (35-45) 06/05/16 04:31 ABG pO2 86 mmHg (85-104) 06/05/16 04:31 ABG HCO3 30.4 mEQ/L (21-27) H 06/05/16 04:31 ABG O2 Saturation 97 % (95-98) 06/05/16 04:31 Calcium 8.2 mg/dL (8.6-10.8) L 06/08/16 00:48 Phosphorus 1.7 mg/dL (2.3-4.7) L 06/05/16 06:18 Magnesium 1.9 mg/dL (1.6-2.6) 06/02/16 04:51 - VTE Documentation of Mechanical Device: Intermittent pneumatic compression device Consult Discharge Plan - Plan Referrals: NO,PCP [Primary Care Provider] - (pt is from [facility] 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
[2016-06-08] MEDS ORDERED: Potassium Chloride 40 MEQ, Lidocaine 1% 2 ML in D5% in Water 500 ML IVPB ONE (11:32)
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
[2016-06-08] MEDS ORDERED: Diltiazem CD (24hr) 180 MG CAPSULE PO SCH (12:00)
--- NOTE | 2016-06-08 13:12 | Pulmonology Progress Note ---
Date of Encounter: 06/08/16 Time of Encounter: 11:55 Assessment and Plan (1) Chronic respiratory failure with hypoxia Current Visit: Yes Status: Acute This patient is ventilator dependent presumably related to unresolved pulmonary edema necessitating hemodialysis support for treatment and control of the same. The patient does notably have growth of Acinetobacter from sputum however I believe this is a colonizer and not a source of infection and respiratory failure. Given the multidrug resistant pattern of Acinetobacter, the patient remains in isolation. He is not a candidate for ventilator weaning and will be maintained on long-term ventilator support. Code(s): J96.11 - Chronic respiratory failure with hypoxia SNOMED Code(s): 725268570 (2) ESRD (end stage renal disease) Current Visit: Yes Status: Acute The etiology of renal failure is uncertain but nonetheless, the patient requires dialytic support. Continue the same management per Dr. Archuleta. Code(s): N18.6 - End stage renal disease SNOMED Code(s): 73742654 (3) Atrial fibrillation with RVR Current Visit: Yes Status: Inactive Reportedly, this patient has preservation of LV function. Atrial fibrillation is rate controlled with medication is the goal, the patient is not an anticoagulation candidate in light of recurrent presumed acute blood loss anemia (history of heme positive stool and significant anemia necessitating blood transfusion). Code(s): I48.91 - Unspecified atrial fibrillation SNOMED Code(s): 200021889723445 (4) Bacteremia associated with intravascular line Current Visit: Yes Status: Acute Patient has documented enterococcal bacteremia from specimens obtained through [facility] and repeat blood cultures from 06-06-16 redemonstrated Gram- positive cocci and probable growth of enterococcus. The patient remains on dual antibiotic therapy for treatment of the same. Transesophageal echo was attempted but was unsuccessful, performed to exclude or verify the presence of valvular lesions. More likely, the patient has a hemodialysis catheter source of infection, I spoke with Dr. Archuleta and the catheter was subsequently removed on 06-07-16.. Furthermore, the patient does have a dual-chamber pacemaker as another potential nidus of persistent bacteremia. Obviously, if the patient bloodstream cannot be cleared, the dual-chamber pacemaker name may need to be explanted. Although not ideal, a surface echocardiogram has been ordered to better discern valvular abnormalities. Qualifiers: Encounter type: subsequent encounter Qualified Code(s): T82.7XXD - Infection and inflammatory reaction due to other cardiac and vascular devices, implants and grafts, subsequent encounter; R78.81 - Bacteremia Code(s): T82.7XXA - Infection and inflammatory reaction due to other cardiac and vascular devices, implants and grafts, initial encounter; R78.81 - Bacteremia SNOMED Code(s): 862063103 Subjective Principal diagnosis: Chronic respiratory failure with hypoxia, tracheostomy status Interval history: This patient was transferred out of the intensive care unit 06-06-16 to [facility]. He is ventilator dependent. He has end-stage renal disease and requires dialytic support. He receives feeding via PEG tube. He was initially transferred from [facility] given anemia concern for GI bleed. EGD performed here revealed esophagitis Ksenia and candidal gastritis but otherwise no bleeding source was noted. He did require blood transfusion at the time of admission but his hemoglobins have remained fairly stable. Additionally, the patient has atrial fibrillation is on rate control medication is not a candidate for regulation in spite of his risk for stroke. Furthermore, the patient has enterococcal bacteremia and in spite of appropriate antimicrobial therapy remains persistently bacteremic. A transesophageal echo was attempted 06-06-16 but the venetian blind installer was unable to pass the probe. Additionally, it is suspected the patient's hemodialysis catheter may be the source of enterococcal bacteremia and the catheter was removed by IR on . This patient also has a dual- chamber pacemaker which may also potentially be infected and at some point if he cannot clear bacteremia following removal of hemodialysis catheter the pacemaker may also need to be explanted. The patient also has delirium. He is intermittently agitated. He sleeps poorly. He has been on Seroquel which needs to be adjusted upwards for control of delirium and agitation. Within the ICU setting, we have attempted to discontinue any sedating drugs and benzodiazepines. This patient's prognosis is relatively poor and despite of discussions with the spouse, she continues to wish full aggressive medical measures. Objective PUL Vital signs: Last Vital Signs Temp 98.9 F 06/08/16 11:53 Pulse 90 06/08/16 11:53 Resp 24 06/08/16 11:53 BP 101/60 06/08/16 11:53 Pulse Ox 100 06/08/16 11:53 General appearance: no acute distress Eyes: nonicteric ENT: oropharynx moist, other (Tracheostomy device in place, stoma clean and dry. ) Auscultation: bilateral: diminished breath sounds Cardiovascular: irregular rhythm Gastrointestinal: normoactive bowel sounds, non-distended, other (PEG tube in place.) Extremities: no cyanosis, edema (Trace leg edema) normal mental status, motor strength normal and symmetric, other (The patient remains confused, unable to follow commands.) Ventilator Settings Ventilator Settings: Ventilator Settings, Last 8 Hours Ventilator Mode VC+ Ventilator Mode VC+ Ventilator Tidal Volume 450 Setting Ventilator Tidal Volume 450 Setting Ventilator Respiratory Rate 14 Setting Ventilator Respiratory Rate 14 Setting Actual Respiratory Rate 34 Actual Respiratory Rate 34 Positive End Expiratory 5 Pressure Positive End Expiratory 5 Pressure Peak Inspiratory Airway 32 Pressure Peak Inspiratory Airway 20 Pressure Results - Laboratory Findings CBC and BMP: 06/08/16 00:48 06/08/16 00:48 ABG ABG pH 7.50 pH Units (7.32-7.45) H 06/05/16 04:31 ABG pCO2 39 mmHg (35-45) 06/05/16 04:31 ABG pO2 86 mmHg (85-104) 06/05/16 04:31 ABG O2 Saturation 97 % (95-98) 06/05/16 04:31 PT/INR, D-dimer PT 14.3 Seconds (9.4-12.1) H 05/31/16 21:30 Abnormal lab findings: Abnormal lab results RBC 3.10 M/mcL (4.19-5.50) L 06/08/16 00:48 Hgb 8.7 g/dL (12.9-16.9) L 06/08/16 00:48 Hct 27.7 % (37.5-50.1) L 06/08/16 00:48 MCHC 31.4 g/dL (31.6-35.5) L 06/08/16 00:48 RDW 17.3 % (11.5-14.5) H 06/08/16 00:48 Plt Count 65 K/mcL (140-400) L 06/08/16 00:48 Immature Gran % 5.7 % (0-4) H 06/08/16 00:48 Band Neutrophils % 11.0 % (0-4) H 06/02/16 04:51 Lymphocytes # 0.4 K/mcL (0.6-4.6) L 06/08/16 00:48 Toxic Granulation Present (Not Present) A 06/02/16 04:51 Platelet Estimate Decreased (Normal) L 06/08/16 00:48 Hypochromasia Present (Not Present) A 06/08/16 00:48 Anisocytosis 1+ (Not Present) A 06/08/16 00:48 PT 14.3 Seconds (9.4-12.1) H 05/31/16 21:30 ABG pH 7.50 pH Units (7.32-7.45) H 06/05/16 04:31 ABG HCO3 30.4 mEQ/L (21-27) H 06/05/16 04:31 ABG Total CO2 31.6 mEq/L (20-26) H 06/05/16 04:31 ABG Base Excess 6.7 mEq/L (-2.0 to 3.0) H 06/05/16 04:31 Sodium 146 mEq/L (136-145) H 06/08/16 00:48 Potassium 3.2 mEq/L (3.5-4.5) L 06/08/16 00:48 Chloride 110 mEq/L (98-109) H 06/08/16 00:48 BUN 38 mg/dL (8-26) H 06/08/16 00:48 Creatinine 2.49 mg/dL (0.72-1.25) H 06/08/16 00:48 Est GFR ( Amer) 30 (> 60) L 06/08/16 00:48 Est GFR (Non-Af Amer) 25 (> 60) L 06/08/16 00:48 Glucose 143 mg/dL (70-99) H 06/08/16 00:48 POC Glucose 144 (58-89) H 06/08/16 00:42 Calculated Osmolality 314 (280-300) H 06/08/16 00:48 Calcium 8.2 mg/dL (8.6-10.8) L 06/08/16 00:48 Phosphorus 1.7 mg/dL (2.3-4.7) L 06/05/16 06:18 Iron 56 mcg/dL (65-175) L 06/03/16 04:15 Transferrin 93 mg/dL (174-364) L 06/03/16 04:15 Ferritin 2435 ng/ml (22-275) H 06/02/16 04:51 AST 37 Units/L (5-34) H 06/05/16 06:18 ALT 62 Units/L (0-55) H 06/05/16 06:18 Alkaline Phosphatase 166 Units/L (38-126) H 06/05/16 06:18 C-Reactive Protein 136 mg/L (Less than 5) H 05/31/16 21:30 Albumin 2.2 g/dL (3.5-5.0) L 06/05/16 06:18 Globulin 3.9 g/dL (2.4-3.5) H 06/05/16 06:18 Albumin/Globulin Ratio 0.6 (1.1-2.2) L 06/05/16 06:18 Vitamin B12 1328 pg/mL (213-816) H 06/02/16 04:51 Stool Occult Blood Positive (Negative) A 06/03/16 04:07 Enterococcus sp PCR DETECTED (Not Detect) A 06/05/16 03:20 - Microbiology Findings Microbiology Findings: Microbiology, Last 48 Hours 06/05/16 03:20 Blood Culture - Preliminary Peripheral Venipuncture Gram Positive Cocci - Chains - Clinical Findings Intake & Output: Intake & Output 06/07/16 06/08/16 06/08/16 23:59 07:59 15:59 Intake Total 350 / 350 325 / 325 1615 / 1615 Balance 350 / 350 325 / 325 1615 / 1615 Weight 60.2 kg - VTE Documentation of Mechanical Device: Intermittent pneumatic compression device Consult Discharge Plan - Plan Referrals: NO,PCP [Primary Care Provider] - (pt is from [facility] 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
[2016-06-08] MEDS: 0.9 % Sodium Chloride 1,000 ML IVC SCH (14:25)
[2016-06-09] MEDS: Ampicillin/Sulbactam 3,000 MG in 0.9 % Sodium Chloride Mini Bag 100 ML IVPB SCH (02:02)
[2016-06-09] MEDS: Haloperidol Lactate 5 MG/ML VIAL IVP PRN (02:40)
[2016-06-09 04:41] LABS: Calcium 8.4 mg/dL (8.6-10.8); Magnesium 1.6 mg/dL (1.6-2.6)
[2016-06-09 04:42] LABS: Potassium 5.2 mEq/L (3.5-4.5)
[2016-06-09] MEDS: *HR* Heparin 5,000 UNIT/ML VIAL SQ SCH ×2 (05:11→18:11)
[2016-06-09] MEDS: Pantoprazole 40 MG VIAL IVP SCH ×2 (05:11→18:11)
--- NOTE | 2016-06-09 08:40 | Nephrology Progress Note ---
Date of Encounter: 06/09/16 Time of Encounter: 08:25 - Assessment and Plan (1) ESRD (end stage renal disease) Current Visit: Yes Status: Acute Tunneled dialysis catheter removed on Friday.. Blood cultures pending to determine placement of temporary or tunneled catheter. Subjective Principal diagnosis: Chronic respiratory failure with hypoxia, tracheostomy status Interval history: Trach > vent. Alert, focuses. Objective - Vital Signs Vital signs: Vital Signs Temp Pulse Resp BP Pulse Ox 06/09/16 08:14 98.2 F 118 28 134/92 98 06/09/16 06:23 45 100 06/09/16 04:42 40 110/71 100 06/09/16 04:15 99.6 F 114 22 110/71 100 06/09/16 02:20 34 100 06/09/16 00:59 99.4 F 98 22 96/67 100 06/08/16 23:50 35 92/41 100 06/08/16 21:56 43 100 06/08/16 20:00 99.8 F H 108 27 136/63 100 06/08/16 19:55 37 98 06/08/16 16:08 98.9 F 102 28 91/60 100 06/08/16 15:49 43 100 06/08/16 11:53 98.9 F 90 24 101/60 100 06/08/16 11:05 32 100 06/08/16 08:55 32 99/41 100 Intake and Output 06/08/16 06/09/16 06/09/16 23:59 07:59 15:59 Intake Total 672 / 672 500 / 500 Balance 672 / 672 500 / 500 Intake: IV Fluids 522 / 522 200 / 200 Unasyn 3,000 mg In 0.9 % 200 / 200 Sodium Chloride (Mini-Bag +) 100 ML @ 200 mls/hr IVPB Q24H [facility] Rx#: [id number] KCl 40 MEQ Xylocaine 2 ML 522 / 522 In Dextrose 5% 500 ML @ 130.5 mls/hr IVPB ONCE ONE Rx#:[id number] Free Water Intake Amount 150 / 150 300 / 300 Other: Weight 60.3 kg Blood Glucose* 126 95 127 Patient Weight 06/09/16 23:59 Weight 60.3 kg - General Appearance General appearance: Present: chronically ill, frail EENT: Present: mucous membranes moist Neck: Present: no JVD Respiratory: Present: rhonchi Cardiology: Present: no edema, irregular rhythm Gastrointestinal: Present: normoactive bowel sounds Integumentary: Present: warm and dry - Lab 06/08/16 00:48 06/09/16 03:39 Most recent lab results ABG pH 7.50 pH Units (7.32-7.45) H 06/05/16 04:31 ABG pCO2 39 mmHg (35-45) 06/05/16 04:31 ABG pO2 86 mmHg (85-104) 06/05/16 04:31 ABG HCO3 30.4 mEQ/L (21-27) H 06/05/16 04:31 ABG O2 Saturation 97 % (95-98) 06/05/16 04:31 Calcium 8.4 mg/dL (8.6-10.8) L 06/09/16 03:39 Phosphorus 1.7 mg/dL (2.3-4.7) L 06/05/16 06:18 Magnesium 1.6 mg/dL (1.6-2.6) 06/09/16 03:39 - VTE Documentation of Mechanical Device: Intermittent pneumatic compression device Consult Discharge Plan - Plan Referrals: NO,PCP [Primary Care Provider] - (pt is from [facility] 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
[2016-06-09] MEDS: Chlorhexidine Rinse 15 ML MOUTHWASH MM SCH ×2 (09:28→22:06)
[2016-06-09] MEDS: Nystatin SUSP 5 ML UD.LIQ PO SCH ×4 (09:28→22:05)
[2016-06-09] MEDS: 0.9 % Sodium Chloride 1,000 ML IVC SCH (09:29)
[2016-06-09] MEDS: Lacri-Lube 3.5 GM TUBE BOTH EYES SCH ×2 (09:29→22:06)
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
--- NOTE | 2016-06-09 12:03 | Pulmonology Progress Note ---
Date of Encounter: 06/09/16 Time of Encounter: 07:00 Assessment and Plan (1) Chronic respiratory failure with hypoxia Current Visit: Yes Status: Acute This patient is ventilator dependent presumably related to unresolved pulmonary edema necessitating hemodialysis support for treatment and control of the same. The patient does notably have growth of Acinetobacter from sputum however I believe this is a colonizer and not a source of infection and respiratory failure. Given the multidrug resistant pattern of Acinetobacter, the patient remains in isolation. He is not a candidate for ventilator weaning and will be maintained on long-term ventilator support. Code(s): J96.11 - Chronic respiratory failure with hypoxia SNOMED Code(s): 324001720 (2) ESRD (end stage renal disease) Current Visit: Yes Status: Acute The etiology of renal failure is uncertain but nonetheless, the patient requires dialytic support. Continue the same management per Dr. Archuleta. Code(s): N18.6 - End stage renal disease SNOMED Code(s): 49813176 (3) Atrial fibrillation with RVR Current Visit: Yes Status: Inactive Reportedly, this patient has preservation of LV function. Atrial fibrillation is rate controlled with medication is the goal, the patient is not an anticoagulation candidate in light of recurrent presumed acute blood loss anemia (history of heme positive stool and significant anemia necessitating blood transfusion). Code(s): I48.91 - Unspecified atrial fibrillation SNOMED Code(s): 336138471919914 (4) Bacteremia associated with intravascular line Current Visit: Yes Status: Acute Patient has documented enterococcal bacteremia from specimens obtained through [facility] and repeat blood cultures from 06-06-16 redemonstrated Gram- positive cocci and probable growth of enterococcus. The patient remains on dual antibiotic therapy for treatment of the same. Transesophageal echo was attempted but was unsuccessful, performed to exclude or verify the presence of valvular lesions. More likely, the patient has a hemodialysis catheter source of infection, I spoke with Dr. Archuleta and the catheter was subsequently removed on 06-07-16. Furthermore, the patient does have a dual-chamber pacemaker as another potential nidus of persistent bacteremia. Obviously, if the patient bloodstream cannot be cleared, the dual-chamber pacemaker name may need to be explanted. Qualifiers: Encounter type: subsequent encounter Qualified Code(s): T82.7XXD - Infection and inflammatory reaction due to other cardiac and vascular devices, implants and grafts, subsequent encounter; R78.81 - Bacteremia Code(s): T82.7XXA - Infection and inflammatory reaction due to other cardiac and vascular devices, implants and grafts, initial encounter; R78.81 - Bacteremia SNOMED Code(s): 100664318 Subjective Principal diagnosis: Chronic respiratory failure with hypoxia, tracheostomy status Interval history: This patient was transferred out of the intensive care unit 06-06-16 to [facility]. He is ventilator dependent. He has end-stage renal disease and requires dialytic support. He receives feeding via PEG tube. He was initially transferred from [facility] given anemia concern for GI bleed. EGD performed here revealed esophagitis Ksenia and candidal gastritis but otherwise no bleeding source was noted. He did require blood transfusion at the time of admission but his hemoglobins have remained fairly stable. Additionally, the patient has atrial fibrillation is on rate control medication is not a candidate for regulation in spite of his risk for stroke. Furthermore, the patient has enterococcal bacteremia and in spite of appropriate antimicrobial therapy remains persistently bacteremic. A transesophageal echo was attempted 06-06-16 but the direct entry midwife was unable to pass the probe. Additionally, it is suspected the patient's hemodialysis catheter may be the source of enterococcal bacteremia and the catheter was removed by IR on . This patient also has a dual- chamber pacemaker which may also potentially be infected and at some point if he cannot clear bacteremia following removal of hemodialysis catheter the pacemaker may also need to be explanted. The patient also has delirium. He is intermittently agitated. He sleeps poorly. He has been on Seroquel which needs to be adjusted upwards for control of delirium and agitation. Within the ICU setting, we have attempted to discontinue any sedating drugs and benzodiazepines. This patient's prognosis is relatively poor and despite of discussions with the spouse, she continues to wish full aggressive medical measures. Objective PUL Vital signs: Last Vital Signs Temp 98.2 F 06/09/16 08:14 Pulse 127 06/09/16 09:20 Resp 32 06/09/16 09:20 BP 134/92 06/09/16 08:14 Pulse Ox 97 06/09/16 09:20 General appearance: no acute distress Eyes: nonicteric ENT: oropharynx moist Neck: other (Tracheostomy tube in place) Auscultation: bilateral: diminished breath sounds (Crackles) Cardiovascular: irregular rhythm Gastrointestinal: normoactive bowel sounds, non-distended, other (PEG tube site intact) Extremities: no cyanosis non-focal exam, other (Awake alert but confused and able to follow commands.) Ventilator Settings Ventilator Settings: Ventilator Settings, Last 8 Hours Ventilator Mode VC+ Ventilator Mode VC+ Ventilator Mode VC+ Ventilator Tidal Volume 450 Setting Ventilator Tidal Volume 450 Setting Ventilator Tidal Volume 450 Setting Ventilator Respiratory Rate 14 Setting Ventilator Respiratory Rate 14 Setting Ventilator Respiratory Rate 14 Setting Actual Respiratory Rate 31 Actual Respiratory Rate 40 Actual Respiratory Rate 40 Positive End Expiratory 5 Pressure Positive End Expiratory 5 Pressure Positive End Expiratory 5 Pressure Peak Inspiratory Airway 25 Pressure Peak Inspiratory Airway 25 Pressure Peak Inspiratory Airway 30 Pressure Results - Laboratory Findings CBC and BMP: 06/08/16 00:48 06/09/16 03:39 ABG ABG pH 7.50 pH Units (7.32-7.45) H 06/05/16 04:31 ABG pCO2 39 mmHg (35-45) 06/05/16 04:31 ABG pO2 86 mmHg (85-104) 06/05/16 04:31 ABG O2 Saturation 97 % (95-98) 06/05/16 04:31 PT/INR, D-dimer PT 14.3 Seconds (9.4-12.1) H 05/31/16 21:30 Abnormal lab findings: Abnormal lab results RBC 3.10 M/mcL (4.19-5.50) L 06/08/16 00:48 Hgb 8.7 g/dL (12.9-16.9) L 06/08/16 00:48 Hct 27.7 % (37.5-50.1) L 06/08/16 00:48 MCHC 31.4 g/dL (31.6-35.5) L 06/08/16 00:48 RDW 17.3 % (11.5-14.5) H 06/08/16 00:48 Plt Count 65 K/mcL (140-400) L 06/08/16 00:48 Immature Gran % 5.7 % (0-4) H 06/08/16 00:48 Band Neutrophils % 11.0 % (0-4) H 06/02/16 04:51 Lymphocytes # 0.4 K/mcL (0.6-4.6) L 06/08/16 00:48 Toxic Granulation Present (Not Present) A 06/02/16 04:51 Platelet Estimate Decreased (Normal) L 06/08/16 00:48 Hypochromasia Present (Not Present) A 06/08/16 00:48 Anisocytosis 1+ (Not Present) A 06/08/16 00:48 PT 14.3 Seconds (9.4-12.1) H 05/31/16 21:30 ABG pH 7.50 pH Units (7.32-7.45) H 06/05/16 04:31 ABG HCO3 30.4 mEQ/L (21-27) H 06/05/16 04:31 ABG Total CO2 31.6 mEq/L (20-26) H 06/05/16 04:31 ABG Base Excess 6.7 mEq/L (-2.0 to 3.0) H 06/05/16 04:31 Sodium 146 mEq/L (136-145) H 06/09/16 03:39 Potassium 5.2 mEq/L (3.5-4.5) H D 06/09/16 03:39 Chloride 114 mEq/L (98-109) H 06/09/16 03:39 BUN 64 mg/dL (8-26) H D 06/09/16 03:39 Creatinine 3.35 mg/dL (0.72-1.25) H 06/09/16 03:39 Est GFR ( Amer) 21 (> 60) L 06/09/16 03:39 Est GFR (Non-Af Amer) 18 (> 60) L 06/09/16 03:39 Glucose 104 mg/dL (70-99) H 06/09/16 03:39 POC Glucose 95 (58-89) H 06/09/16 03:57 Calculated Osmolality 321 (280-300) H 06/09/16 03:39 Calcium 8.4 mg/dL (8.6-10.8) L 06/09/16 03:39 Phosphorus 1.7 mg/dL (2.3-4.7) L 06/05/16 06:18 Iron 56 mcg/dL (65-175) L 06/03/16 04:15 Transferrin 93 mg/dL (174-364) L 06/03/16 04:15 Ferritin 2435 ng/ml (22-275) H 06/02/16 04:51 AST 37 Units/L (5-34) H 06/05/16 06:18 ALT 62 Units/L (0-55) H 06/05/16 06:18 Alkaline Phosphatase 166 Units/L (38-126) H 06/05/16 06:18 C-Reactive Protein 136 mg/L (Less than 5) H 05/31/16 21:30 Albumin 2.2 g/dL (3.5-5.0) L 06/05/16 06:18 Globulin 3.9 g/dL (2.4-3.5) H 06/05/16 06:18 Albumin/Globulin Ratio 0.6 (1.1-2.2) L 06/05/16 06:18 Vitamin B12 1328 pg/mL (213-816) H 06/02/16 04:51 Stool Occult Blood Positive (Negative) A 06/03/16 04:07 Enterococcus sp PCR DETECTED (Not Detect) A 06/05/16 03:20 - Microbiology Findings Microbiology Findings: Microbiology, Last 48 Hours 06/05/16 03:20 Blood Culture - Final Peripheral Venipuncture Enterococcus faecalis 06/07/16 16:34 Blood Culture - Preliminary Peripheral Venipuncture No growth. - Clinical Findings Intake & Output: Intake & Output 06/08/16 06/09/16 06/09/16 23:59 07:59 15:59 Intake Total 672 / 672 500 / 500 1150 / 1150 Balance 672 / 672 500 / 500 1150 / 1150 Weight 60.3 kg - VTE Documentation of Mechanical Device: Intermittent pneumatic compression device Consult Discharge Plan - Plan Referrals: NO,PCP [Primary Care Provider] - (pt is from ECF 

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
--- NOTE | 2016-06-09 17:46 | Electrocardiograph Report ---
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
[2016-06-09] MEDS: Ascorbic Acid 500 MG TABLET GTUBE SCH (22:04)
[2016-06-09] MEDS: Mirtazapine 15 MG TABLET GTUBE SCH (22:05)
[2016-06-09] MEDS: BUSPIRONE HCL GTUBE SCH (22:08)
[2016-06-10] MEDS: Ampicillin/Sulbactam 3,000 MG in 0.9 % Sodium Chloride Mini Bag 100 ML IVPB SCH ×2 (01:20→17:45)
[2016-06-10 04:44] LABS: Hematocrit 26.2 % (37.5-50.1); Hemoglobin 8.1 g/dL (12.9-16.9); Immature Platelets 6.3 % (1.1-6.1); Mean Corpuscular HGB Conc 30.9 g/dL (31.6-35.5); Mean Corpuscular Hemoglobin 27.8 pg (28.0-33.3); Mean Platelet Volume 11.9 fL (9.4-12.4); Red Blood Count 2.91 M/mcL (4.19-5.50); Red Cell Distribution Width 17.6 % (11.5-14.5)
[2016-06-10 04:48] LABS: Platelet Count 83 K/mcL (140-400)
[2016-06-10 05:04] LABS: Calcium 8.7 mg/dL (8.6-10.8); Potassium 4.8 mEq/L (3.5-4.5)
[2016-06-10 05:29] LABS: Anisocytosis 1+ (Not Present); Lymphocytes # 0.6 K/mcL (0.6-4.6); Monocytes # 0.9 K/mcL (0.0-1.3); Neutrophils # 5.9 K/mcL (1.6-8.9); Platelet Estimate Decreased (Normal)
[2016-06-10] MEDS: *HR* Heparin 5,000 UNIT/ML VIAL SQ SCH ×2 (06:06→17:45)
[2016-06-10] MEDS: 0.9 % Sodium Chloride 1,000 ML IVC SCH (06:20)
[2016-06-10] MEDS: Pantoprazole 40 MG VIAL IVP SCH ×2 (06:21→17:45)
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
[2016-06-10] MEDS ORDERED: [UNRECOGNIZED DRUG - REMARK] GTUBE SCH (09:00)
[2016-06-10] MEDS: Finasteride 5 MG TABLET PO SCH (09:03)
[2016-06-10] MEDS: Chlorhexidine Rinse 15 ML MOUTHWASH MM SCH ×2 (09:03→22:36)
[2016-06-10] MEDS: Nystatin SUSP 5 ML UD.LIQ PO SCH ×3 (09:03→22:36)
[2016-06-10] MEDS: Ascorbic Acid 500 MG TABLET GTUBE SCH ×2 (09:03→22:35)
[2016-06-10] MEDS: Gabapentin 100 MG CAPSULE GTUBE SCH (09:03)
[2016-06-10] MEDS: Lacri-Lube 3.5 GM TUBE BOTH EYES SCH (09:03)
[2016-06-10] MEDS: BUSPIRONE HCL GTUBE SCH (09:04)
--- NOTE | 2016-06-10 09:04 | Nephrology Progress Note ---
Date of Encounter: 06/10/16 Time of Encounter: 09:03 - Assessment and Plan (1) ESRD (end stage renal disease) Current Visit: Yes Status: Acute We will continue to monitor the patient's blood cultures. If the cultures from the and remain negative we can then have a tunnel dialysis catheter placed tomorrow and then the patient can undergo dialysis. He continues on maintenance IV fluids in the setting of having a lot of diarrhea. (2) Atrial fibrillation with RVR Current Visit: Yes Status: Inactive (3) Acute and chronic respiratory failure Current Visit: Yes Status: Acute Qualifiers: Respiratory failure complication: hypoxia Qualified Code(s): J96.21 - Acute and chronic respiratory failure with hypoxia Subjective Principal diagnosis: Chronic respiratory failure with hypoxia, tracheostomy status Interval history: Clinically the patient appears about the same. He remains on the ventilator. Blood cultures from June 08 and are negative. The previous dialysis catheter tip culture is positive. Objective - Vital Signs Vital signs: Vital Signs Temp Pulse Resp BP Pulse Ox 06/10/16 08:47 98.4 F 84 107/67 06/10/16 07:52 33 125/53 100 06/10/16 06:02 28 125/53 100 06/10/16 04:49 99.5 F 96 22 125/53 95 06/10/16 04:45 95 06/10/16 04:16 32 100 06/10/16 02:07 32 106/85 100 06/10/16 00:24 99.3 F 93 27 106/85 99 06/10/16 00:01 31 127/71 100 06/09/16 22:27 31 127/71 100 06/09/16 21:24 97.3 F L 86 30 127/71 100 06/09/16 20:16 27 100 06/09/16 19:25 83 30 100 06/09/16 16:52 34 112/62 100 06/09/16 16:46 98.6 F 96 32 112/62 100 06/09/16 16:30 96 34 06/09/16 12:13 98.1 F 111 28 124/64 100 06/09/16 12:00 109 32 99 06/09/16 11:35 34 112/47 100 06/09/16 09:20 127 32 97 Intake and Output 06/09/16 06/10/16 06/10/16 23:59 07:59 15:59 Intake Total 150 / 150 1250 / 1250 Output Total 300 / 300 250 / 250 Balance -150 / -150 1000 / 1000 Intake: IV Fluids 1100 / 1100 0.9 % Sodium Chloride 1, 1000 / 1000 000 ML @ 50 mls/hr IVC . Q20H ERNESTO Rx#:[id number] Unasyn 3,000 mg In 0.9 % 100 / 100 Sodium Chloride (Mini-Bag +) 100 ML @ 200 mls/hr IVPB Q24H ERNESTO Rx#: [id number] Free Water Intake Amount 150 / 150 150 / 150 Output: Stool 300 / 300 250 / 250 Other: Weight 61 kg Blood Glucose* 115 133 126 Patient Weight 06/10/16 23:59 Weight 61 kg - General Appearance Exam: Patient is on the ventilator. He appears to be resting comfortably. Lung sounds. Heart irregular rate and rhythm consistent with atrial fibrillation. Abdomen is soft. PEG tube is in place. There is no lower extremity swelling. - Lab 06/10/16 04:25 06/10/16 04:25 Most recent lab results ABG pH 7.50 pH Units (7.32-7.45) H 06/05/16 04:31 ABG pCO2 39 mmHg (35-45) 06/05/16 04:31 ABG pO2 86 mmHg (85-104) 06/05/16 04:31 ABG HCO3 30.4 mEQ/L (21-27) H 06/05/16 04:31 ABG O2 Saturation 97 % (95-98) 06/05/16 04:31 Calcium 8.7 mg/dL (8.6-10.8) 06/10/16 04:25 Phosphorus 1.7 mg/dL (2.3-4.7) L 06/05/16 06:18 Magnesium 1.6 mg/dL (1.6-2.6) 06/09/16 03:39 - VTE Documentation of Mechanical Device: Intermittent pneumatic compression device Consult Discharge Plan - Plan Referrals: NO,PCP [Primary Care Provider] - (pt is from [facility] 

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
[2016-06-10] MEDS: ALPRAZolam 0.25 MG TABLET GTUBE PRN (17:45)
[2016-06-10] MEDS: Mirtazapine 15 MG TABLET GTUBE SCH (22:36)
[2016-06-11 05:19] LABS: Immature Platelets 5.8 % (1.1-6.1); Mean Corpuscular HGB Conc 30.8 g/dL (31.6-35.5); Mean Corpuscular Hemoglobin 27.8 pg (28.0-33.3); Mean Corpuscular Volume 90.3 fL (83.0-100.0); Mean Platelet Volume 12.2 fL (9.4-12.4); Red Blood Count 2.88 M/mcL (4.19-5.50); Red Cell Distribution Width 17.4 % (11.5-14.5); Segmented Neutrophils % 78.3 %
[2016-06-11 05:20] LABS: Eosinophils % 0.1 %; Immature Granulocytes % 4.7 % (0-4); Lymphocytes # 0.5 K/mcL (0.6-4.6); Monocytes # 0.7 K/mcL (0.0-1.3); Monocytes % 9.9 %
[2016-06-11 05:25] LABS: Neutrophils # 5.3 K/mcL (1.6-8.9); Platelet Count 90 K/mcL (140-400)
[2016-06-11] MEDS: Ampicillin/Sulbactam 3,000 MG in 0.9 % Sodium Chloride Mini Bag 100 ML IVPB SCH ×2 (05:39→20:25)
[2016-06-11] MEDS: Pantoprazole 40 MG VIAL IVP SCH (05:39)
[2016-06-11] MEDS: *HR* Heparin 5,000 UNIT/ML VIAL SQ SCH ×2 (05:40→20:24)
[2016-06-11 05:42] LABS: Albumin/Globulin Ratio 0.4 (1.1-2.2); Bilirubin,Total 0.4 mg/dL (0.2-1.2); Calcium 8.7 mg/dL (8.6-10.8); Globulin 4.1 g/dL (2.4-3.5); Phosphorous 4.1 mg/dL (2.3-4.7); Potassium 4.9 mEq/L (3.5-4.5); Total Protein 5.9 g/dL (6.0-8.3)
[2016-06-11 05:43] LABS: Albumin 1.8 g/dL (3.5-5.0)
--- NOTE | 2016-06-11 08:14 | Nephrology Progress Note ---
Date of Encounter: 06/11/16 Time of Encounter: 08:12 - Assessment and Plan (1) ESRD (end stage renal disease) Current Visit: Yes Status: Chronic Since the patient's blood cultures remain negative we can place a tunnel dialysis catheter today and then proceed with dialysis. I am going to discontinue his IV fluids. (2) Atrial fibrillation with RVR Current Visit: Yes Status: Inactive (3) Acute and chronic respiratory failure Current Visit: Yes Status: Acute Qualifiers: Respiratory failure complication: hypoxia Qualified Code(s): J96.21 - Acute and chronic respiratory failure with hypoxia Subjective Principal diagnosis: Chronic respiratory failure with hypoxia, tracheostomy status Interval history: The patient remains on the ventilator. His blood cultures from June 08 and remain negative. Therefore we should be able to place a new tunnel dialysis catheter today and then proceed with dialysis today. Objective - Vital Signs Vital signs: Vital Signs Temp Pulse Resp BP Pulse Ox 06/11/16 08:10 31 98 06/11/16 08:04 99.5 F 97 38 119/66 97 06/11/16 05:15 36 103/58 100 06/11/16 04:42 99.9 F H 86 32 135/52 100 06/11/16 02:30 33 103/58 100 06/11/16 00:50 99.3 F 105 31 103/58 99 06/10/16 20:00 98.5 F 102 35 126/66 06/10/16 19:46 95 06/10/16 17:31 98.3 F 95 30 116/56 100 06/10/16 17:23 35 130/63 99 06/10/16 12:18 101 40 99 06/10/16 11:37 98.8 F 85 20 130/63 99 06/10/16 11:19 31 130/63 96 06/10/16 10:32 81 06/10/16 09:55 32 107/67 98 06/10/16 09:35 32 135/52 100 06/10/16 08:47 98.4 F 84 107/67 Intake and Output 06/10/16 06/11/16 06/11/16 23:59 07:59 15:59 Intake Total 100 / 100 250 / 250 Output Total 250 / 250 Balance 100 / 100 0 / 0 Intake: IV Fluids 100 / 100 Unasyn 3,000 mg In 0.9 % 100 / 100 Sodium Chloride (Mini-Bag +) 100 ML @ 200 mls/hr IVPB Q12H [facility] Rx#: [id number] Oral 0 / 0 Free Water Intake Amount 100 / 100 150 / 150 Output: Rectal Tube 250 / 250 Other: Stool Color Brown # Voids 1 Blood Glucose* 126 117 123 - General Appearance Exam: Patient is on the ventilator. He appears chronically ill. Lungs some expiratory wheezing. Heart irregular rate and rhythm. Abdomen is benign. PEG tube is in place. There is no lower extremity swelling. - Lab 06/11/16 04:13 06/11/16 04:13 Most recent lab results ABG pH 7.50 pH Units (7.32-7.45) H 06/05/16 04:31 ABG pCO2 39 mmHg (35-45) 06/05/16 04:31 ABG pO2 86 mmHg (85-104) 06/05/16 04:31 ABG HCO3 30.4 mEQ/L (21-27) H 06/05/16 04:31 ABG O2 Saturation 97 % (95-98) 06/05/16 04:31 Calcium 8.7 mg/dL (8.6-10.8) 06/11/16 04:13 Phosphorus 4.1 mg/dL (2.3-4.7) 06/11/16 04:13 Magnesium 1.6 mg/dL (1.6-2.6) 06/09/16 03:39 - VTE Documentation of Mechanical Device: Intermittent pneumatic compression device Consult Discharge Plan - Plan Referrals: NO,PCP [Primary Care Provider] - (pt is from [facility] 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
[2016-06-11] MEDS ORDERED: 0.9 % Sodium Chloride 250 ML IVC PRN (08:15)
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
[2016-06-11] MEDS: Multivitamin Liquid 15 ML UDC PO SCH (09:43)
[2016-06-11] MEDS: Nystatin SUSP 5 ML UD.LIQ PO SCH ×4 (09:43→20:23)
[2016-06-11] MEDS: Chlorhexidine Rinse 15 ML MOUTHWASH MM SCH ×2 (09:43→20:24)
[2016-06-11] MEDS: Finasteride 5 MG TABLET PO SCH (09:43)
[2016-06-11] MEDS: Gabapentin 100 MG CAPSULE GTUBE SCH (09:43)
[2016-06-11] MEDS: Ascorbic Acid 500 MG TABLET GTUBE SCH ×2 (09:43→22:43)
--- NOTE | 2016-06-11 10:07 | Infectious Disease Progress No ---
Date of Encounter: 06/11/16 Time of Encounter: 10:04 - Assessment and Plan (1) Sepsis Current Visit: Yes Status: Acute The patient had three SIRS criteria (tachycardia, bandemia, and fever) on admission. Likely secondary to bacteremia. Improved. Bandemia has resolved and the patient has been afebrile <48 hours. He continues to have some intermittent tachycardia. Blood cultures drawn 05/31/16 at [facility] were positive 2/2 sets for E. faecalis. Repeat blood cultures drawn 06/05/16 were positive 1/2 sets for E. faelcalis. Additional blood cultures drawn 06/08/16 x 2 sets and 06/09 x 1 set are NGTD. Qualifiers: Sepsis type: sepsis due to unspecified organism Qualified Code(s): A41.9 - Sepsis, unspecified organism (2) Bacteremia Current Visit: Yes Status: Acute Source likely the patient's Perma-cath, which was discontinued 06/07/16. Complicated due to the presence of the patient's pacemaker. Clinically, the pacemaker does not look infected. Blood cultures drawn 05/31/16 at [facility] were positive 2/2 sets for E. faecalis. Repeat blood cultures drawn 06/05/16 were positive 1/2 sets for E. faelcalis. Additional blood cultures drawn 06/08/16 x 2 sets and 06/09 x 1 set are NGTD. All blood cultures resulted have been drawn peripherally. No blood cultures were obtained from the Perma-cath until 06/10/16, which are pending. Perma-cath was removed and catheter tip was sent for culture. Culture came back positive for S. epi. I still believe that this was the likely source of the patient's persistent bacteremia given the clinical picture. CHIQUITA attempted, but unsuccessful due to inability to pass the probe. TTE completed and was negative for valvular vegetations. No endocarditis stigmata noted on exam. The patient has one major and one minor Modified Garcia's criteria.--> possibe Infective Endocarditis. Continue Unasyn 3 grams IV Q24H for now (day 3 since first negative blood cultures). Give after HD on dialysis days. Await repeat cultures. Per nephrology, plan to have the patient go for insertion of TDC today. Duration of treatment depends on the clinical picture. We may consider switching to IV Vancomycin at discharge for ease of administration as it can be given with HD and we can avoid having to give the patient an additional IV access. Will discuss with nephrology. (3) Pneumonia Current Visit: Yes Status: Acute Sputum culture positive for MDRO Acinetobacter - colonization vs. active infection? Given the patient's chronic tracheostomy, I am more inclined to think this is colonization rather than an acute infection. CXR completed 06/04/16 showed findings consistent with acute CHF rather than PNA. Currently on day 4 of Unasyn. Qualifiers: Pneumonia type: due to unspecified organism Laterality: unspecified laterality Lung location: unspecified part of lung Qualified Code(s): J18.9 - Pneumonia, unspecified organism (4) Encephalopathy Current Visit: Yes Status: Acute Likely multifactorial, but I am unsure what the patient's baseline is. Overall, the patient's prognosis is poor given his current medical conditions in conjunction with his multiple chronic comorbidities. Recommend consulting palliative care for further discussion with the patient's family and to discuss goals of care. (5) Esophageal candidiasis Current Visit: Yes Status: Acute EGD performed 06/04/16 showed findings consistent with esophageal candidasis in the distal third of the esophagus, as well as fungal overgrowth noted in the stomach. Currentyl on Nystatin via PEG tube. Consider stopping nystatin and starting systemic antifungal, such as fluconazole. Give loading dose of 400mg IV or via PEG tube x1 dose, then give 200mg IV or via PEG tube daily x 14 days. (6) Fungal gastroenteritis Current Visit: Yes Status: Acute (7) Atrial fibrillation with RVR Current Visit: Yes Status: Acute Rate currently controlled with Cardizem per PEG tube. Cardiology consulted for assistance with management. (8) Pulmonary edema Current Visit: Yes Status: Acute Likely secondary to the patient being unable to undergo dialysis on the day of admission. Management per the primary team. Qualifiers: Chronicity: acute Qualified Code(s): J81.0 - Acute pulmonary edema (9) Anemia, chronic disease Current Visit: Yes Status: Chronic Hgb down to 8 today and has steadily been decreasing over the past four days. FOBT positive. EGD negative for bleeding. Has received a total of 3 units of PRBCs. Management per the primary team. (10) Chronic respiratory failure with hypoxia Current Visit: Yes Status: Acute (11) ESRD (end stage renal disease) Current Visit: Yes Status: Chronic Gets HD M/W/F. Nephrology consulted and following. (12) Thrombocytopenia Current Visit: Yes Status: Chronic Chronic per the medical record. Etiology unclear. Management per the primary team. - Subjective Interval history: Patient seen and examined. No acute events noted overnight. Patient appears less responsive today, but nursing reports that the patient has required more medication to keep him from being agitated and tachypneic. Per nursing, patient continues to breath over the vent. He has been afebrile. The patient has developed diarrhea. C. diff was checked and was negative. No other new issues per nursing. Patient remains non-communicative and does not follow commands. He does wince in pain with movement of his BLE. Infect Dis PN-Objective Data - Labs CBC & Chem 7: 06/11/16 04:13 06/11/16 04:13 Labs: Laboratory Results - last 24 hr 06/10/16 06/10/16 06/10/16 08:54 10:45 12:17 WBC RBC Hgb Hct MCV MCH MCHC RDW Plt Count MPV Immature Gran % Seg Neutrophils % Lymphocytes % Monocytes % Eosinophils % Basophils % Neutrophils # Lymphocytes # Monocytes # Eosinophils # Basophils # Immature Plt Fraction Sodium Potassium Chloride Carbon Dioxide BUN Creatinine Est GFR ( Amer) Est GFR (Non-Af Amer) BUN/Creatinine Ratio Glucose POC Glucose 126 H 120 H Calculated Osmolality Calcium Phosphorus Total Bilirubin AST ALT Alkaline Phosphatase Serum Total Protein Albumin Globulin Albumin/Globulin Ratio Stl C. diff Tox B Gene Negative 06/10/16 06/10/16 06/11/16 17:43 21:26 00:55 WBC RBC Hgb Hct MCV MCH MCHC RDW Plt Count MPV Immature Gran % Seg Neutrophils % Lymphocytes % Monocytes % Eosinophils % Basophils % Neutrophils # Lymphocytes # Monocytes # Eosinophils # Basophils # Immature Plt Fraction Sodium Potassium Chloride Carbon Dioxide BUN Creatinine Est GFR ( Amer) Est GFR (Non-Af Amer) BUN/Creatinine Ratio Glucose POC Glucose 126 H 125 H 132 H Calculated Osmolality Calcium Phosphorus Total Bilirubin AST ALT Alkaline Phosphatase Serum Total Protein Albumin Globulin Albumin/Globulin Ratio Stl C. diff Tox B Gene 06/11/16 06/11/16 06/11/16 04:13 04:13 04:35 WBC 6.8 RBC 2.88 L Hgb 8.0 L Hct 26.0 L MCV 90.3 MCH 27.8 L MCHC 30.8 L RDW 17.4 H Plt Count 90 L MPV 12.2 Immature Gran % 4.7 H Seg Neutrophils % 78.3 Lymphocytes % 7.0 Monocytes % 9.9 Eosinophils % 0.1 Basophils % 0.0 Neutrophils # 5.3 Lymphocytes # 0.5 L Monocytes # 0.7 Eosinophils # 0.0 Basophils # 0.0 Immature Plt Fraction 5.8 Sodium 147 H Potassium 4.9 H Chloride 115 H Carbon Dioxide 20 BUN 100 H Creatinine 4.49 H Est GFR ( Amer) 15 L Est GFR (Non-Af Amer) 13 L BUN/Creatinine Ratio 22 Glucose 117 H POC Glucose 117 H Calculated Osmolality 336 H Calcium 8.7 Phosphorus 4.1 Total Bilirubin 0.4 AST 50 H ALT 68 H Alkaline Phosphatase 143 H Serum Total Protein 5.9 L Albumin 1.8 L Globulin 4.1 H Albumin/Globulin Ratio 0.4 L Stl C. diff Tox B Gene Cultures: Cultures 06/07/16 19:41 Catheter Tip Culture - Final Intravenous or Arterial Cath Staphylococcus epidermidis 06/05/16 03:23 Blood Culture - Final Peripheral Venipuncture No growth. 06/09/16 03:39 Blood Culture - Preliminary Peripheral Venipuncture No growth. 06/08/16 10:26 Blood Culture - Preliminary Peripheral Venipuncture No growth. 06/08/16 10:25 Blood Culture - Preliminary Peripheral Venipuncture No growth. 06/05/16 03:20 Blood Culture - Final Peripheral Venipuncture Enterococcus faecalis 06/07/16 16:34 Blood Culture - Preliminary Peripheral Venipuncture No growth. 06/02/16 09:42 Sputum Culture - Final Sputum Acinetobacter jo ann/haem MDRO Serology 06/10/16 06/05/16 06/03/16 Range/Units 10:45 03:20 04:07 Stool Occult Blood Positive A (Negative) Stl C. diff Tox B Gene Negative (Negative) A. baumannii (PCR) Not Detected (Not Detect) Ksenia albicans (PCR) Not Detected (Not Detect) C. glabrata (PCR) Not Detected (Not Detect) C. krusei (PCR) Not Detected (Not Detect) C. parapsilosis (PCR) Not Detected (Not Detect) C. tropicalis (PCR) Not Detected (Not Detect) Enterobacteriac sp PCR Not Detected (Not Detect) E. cloacae complex PCR Not Detected (Not Detect) Enterococcus sp PCR DETECTED A (Not Detect) E. coli (PCR) Not Detected (Not Detect) H. influenzae (PCR) Not Detected (Not Detect) Klebsiella oxytoca PCR Not Detected (Not Detect) Klebsiella pneumoniae Not Detected (Not Detect) List. monocytogenes PCR Not Detected (Not Detect) N. meningitidis (PCR) Not Detected (Not Detect) Proteus species (PCR) Not Detected (Not Detect) Serratia marcescens PCR Not Detected (Not Detect) Staphylococcus sp PCR Not Detected (Not Detect) Staph aureus (PCR) Not Detected (Not Detect) mecA-Methicil Res Gene N/A (Not Detect) Streptococcus sp PCR Not Detected (Not Detect) Group A Strep DNA Not Detected (Not Detect) Group B Strep (PCR) Not Detected (Not Detect) Strep pneumoniae (PCR) Not Detected (Not Detect) P. aeruginosa (PCR) Not Detected (Not Detect) Kirstie/B-Vanco Res Genes Not Detected (Not Detect) KPC (blaKPC) Detect PCR N/A (Not Detect) Exam - Constitutional Vitals: Temp Pulse Resp BP Pulse Ox 99.5 F 80 28 119/66 100 06/11/16 08:04 06/11/16 09:31 06/11/16 09:31 06/11/16 08:04 06/11/16 09:31 General appearance: no acute distress, thin, no cooperative - Head Head exam: Present: atraumatic, normal inspection, normocephalic - Eye Eye exam: Absent: conjunctival injection, periorbital swelling, scleral icterus Pupils: Present: irregular (Left>right) - ENT ENT exam: Present: mucous membranes moist - Neck Additional comments: Tracheostomy midline with O2 via the ventilator with FiO2 at 28%. No secretions noted. Stoma remains clean and dry. - Respiratory Respiratory exam: Present: CTAB, tachypnea Additional comments: O2 via the vent. AC rate 14, FiO2 28%. Tidal volume 500. - Cardiovascular Cardiovascular exam: Present: irregular rhythm. Absent: tachycardia - GI/Abdominal GI/Abdominal exam: Present: normal bowel sounds, soft. Absent: distended, tenderness Additional comments: PEG tube noted with tube feedings currently on hold for procedure later today. - Extremities Exam Extremities exam: Absent: joint swelling, normal inspection (BLE contracted), pedal edema, tenderness Additional comments: Severe muscle wasting and contractures noted to the BLE. Allevyn dressing to the right knee remains C/D/I. - Back Exam Back exam: Present: normal inspection. Absent: paraspinal tenderness, vertebral tenderness - Neurological Exam Neurological exam: Present: altered (Sedated, does not open eyes when talked to , but does wince in pain with movement of his BLE.), speech deficit (Does not attempt to speak or communicate.). Absent: facial droop Additional comments: Does not follow commands or respond to verbal stimuli. - Skin Skin exam: Present: dry, intact, warm - VTE Documentation of Mechanical Device: Intermittent pneumatic compression device Consult Discharge Plan - Plan Referrals: NO,PCP [Primary Care Provider] - (pt is from [facility] 

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
[2016-06-11] MEDS: ALPRAZolam 0.25 MG TABLET GTUBE PRN (12:54)
[2016-06-11] MEDS ORDERED: Clindamycin 600 MG/50 ML 600 MG/50 ML IV.SOLN IVPB ONE (13:59)
[2016-06-11] MEDS ORDERED: *HR* Midazolam HCl 2 MG/2 ML VIAL IVP PRN (13:59)
[2016-06-11] MEDS ORDERED: *HR* FentaNYL (PF) 100 MCG/2 ML VIAL IVP PRN (13:59)
[2016-06-11] MEDS ORDERED: *HR* FentaNYL (PF) 100 MCG/2 ML VIAL IVP ONE (13:59)
[2016-06-11] MEDS ORDERED: Heparin 1,000 UNITS/500 mL NS 500 ML ONE (14:04)
[2016-06-11] MEDS ORDERED: 0.9 % Sodium Chloride 2,000 ML ONE (14:47)
[2016-06-11] MEDS ORDERED: *HR* Heparin 10,000 UNIT/10 ML VIAL IV PRN (15:38)
[2016-06-11] MEDS: Mirtazapine 15 MG TABLET GTUBE SCH (20:24)
[2016-06-12] MEDS: *HR* Heparin 5,000 UNIT/ML VIAL SQ SCH ×2 (05:24→17:50)
[2016-06-12] MEDS: Ampicillin/Sulbactam 3,000 MG in 0.9 % Sodium Chloride Mini Bag 100 ML IVPB SCH (05:25)
[2016-06-12 05:50] LABS: Calcium 8.3 mg/dL (8.6-10.8); Potassium 4.6 mEq/L (3.5-4.5)
--- NOTE | 2016-06-12 09:12 | Infectious Disease Progress No ---
Date of Encounter: 06/12/16 Time of Encounter: 09:10 - Assessment and Plan (1) Sepsis Current Visit: Yes Status: Acute The patient had three SIRS criteria (tachycardia, bandemia, and fever) on admission. Likely secondary to bacteremia. Improved. Bandemia has resolved and the patient has been afebrile >48 hours. He continues to have some intermittent tachycardia. Blood cultures drawn 05/31/16 at [facility] were positive 2/2 sets for E. faecalis. Repeat blood cultures drawn 06/05/16 were positive 1/2 sets for E. faelcalis. Additional blood cultures drawn 06/08/16 x 2 sets and 06/09 x 1 set are NGTD. Qualifiers: Sepsis type: sepsis due to unspecified organism Qualified Code(s): A41.9 - Sepsis, unspecified organism (2) Bacteremia Current Visit: Yes Status: Acute Source likely the patient's Perma-cath, which was discontinued 06/07/16. Complicated due to the presence of the patient's pacemaker. Clinically, the pacemaker does not look infected. Blood cultures drawn 05/31/16 at [facility] were positive 2/2 sets for E. faecalis. Repeat blood cultures drawn 06/05/16 were positive 1/2 sets for E. faelcalis. Additional blood cultures drawn 06/08/16 x 2 sets and 06/09 x 1 set are NGTD. All blood cultures resulted have been drawn peripherally. No blood cultures were obtained from the Perma-cath until 06/10/16, which are pending. Perma-cath was removed and catheter tip was sent for culture. Culture came back positive for S. epi. I still believe that this was the likely source of the patient's persistent bacteremia given the clinical picture. CHIQUITA attempted, but unsuccessful due to inability to pass the probe. TTE completed and was negative for valvular vegetations. No endocarditis stigmata noted on exam. The patient has one major and one minor Modified Garcia's criteria.--> possibe Infective Endocarditis. Continue Unasyn 3 grams IV Q24H for now (day 4 since first negative blood cultures). Give after HD on dialysis days. Await repeat cultures. Duration of treatment depends on the clinical picture. We may consider switching to IV Vancomycin at discharge for ease of administration as it can be given with HD and we can avoid having to give the patient an additional IV access. Will discuss with nephrology. (3) Pneumonia Current Visit: Yes Status: Acute Sputum culture positive for MDRO Acinetobacter - colonization vs. active infection? Given the patient's chronic tracheostomy, I am more inclined to think this is colonization rather than an acute infection. CXR completed 06/04/16 showed findings consistent with acute CHF rather than PNA. Currently on day 5 of Unasyn. Qualifiers: Pneumonia type: due to unspecified organism Laterality: unspecified laterality Lung location: unspecified part of lung Qualified Code(s): J18.9 - Pneumonia, unspecified organism (4) Encephalopathy Current Visit: Yes Status: Acute Likely multifactorial, but I am unsure what the patient's baseline is. Overall, the patient's prognosis is poor given his current medical conditions in conjunction with his multiple chronic comorbidities. Recommend consulting palliative care for further discussion with the patient's family and to discuss goals of care. (5) Esophageal candidiasis Current Visit: Yes Status: Acute EGD performed 06/04/16 showed findings consistent with esophageal candidasis in the distal third of the esophagus, as well as fungal overgrowth noted in the stomach. Currentyl on Nystatin via PEG tube. Consider stopping nystatin and starting systemic antifungal, such as fluconazole. Give loading dose of 400mg IV or via PEG tube x1 dose, then give 200mg IV or via PEG tube daily x 14 days. (6) Fungal gastroenteritis Current Visit: Yes Status: Acute (7) Atrial fibrillation with RVR Current Visit: Yes Status: Acute Rate intermittently controlled with Cardizem per PEG tube. Cardiology consulted for assistance with management. (8) Pulmonary edema Current Visit: Yes Status: Acute Likely secondary to the patient being unable to undergo dialysis on the day of admission. Management per the primary team. Qualifiers: Chronicity: acute Qualified Code(s): J81.0 - Acute pulmonary edema (9) Anemia, chronic disease Current Visit: Yes Status: Chronic Hgb down to 8 yesterday and has steadily been decreasing over the past four days. No CBC checked this morning. FOBT positive. EGD negative for bleeding. Has received a total of 3 units of PRBCs. Management per the primary team. (10) Chronic respiratory failure with hypoxia Current Visit: Yes Status: Acute (11) ESRD (end stage renal disease) Current Visit: Yes Status: Chronic Gets HD M/W/F. Nephrology consulted and following. (12) Thrombocytopenia Current Visit: Yes Status: Chronic Chronic per the medical record. Etiology unclear. Management per the primary team. - Subjective Interval history: Patient seen and examined. No acute events noted overnight. Patient remains minimally responsive. Patient continues to breath over the vent. He has been afebrile. The patient continues to have loose stool via his recta tube. Patient remains non-communicative and does not follow commands. He does wince in pain with movement of his BLE and opens his eyes with palpation of his abdomen. Infect Dis PN-Objective Data - Labs CBC & Chem 7: 06/11/16 04:13 06/12/16 05:16 Labs: Laboratory Results - last 24 hr 06/11/16 06/11/16 06/12/16 08:06 11:46 05:16 Sodium 142 Potassium 4.6 H Chloride 107 Carbon Dioxide 28 BUN 55 H D Creatinine 2.82 H Est GFR ( Amer) 26 L Est GFR (Non-Af Amer) 22 L BUN/Creatinine Ratio 20 Glucose 118 H POC Glucose 123 H 112 H Calculated Osmolality 310 H Calcium 8.3 L Cultures: Cultures 06/07/16 19:41 Catheter Tip Culture - Final Intravenous or Arterial Cath Staphylococcus epidermidis 06/05/16 03:23 Blood Culture - Final Peripheral Venipuncture No growth. 06/09/16 03:39 Blood Culture - Preliminary Peripheral Venipuncture No growth. 06/08/16 10:26 Blood Culture - Preliminary Peripheral Venipuncture No growth. 06/08/16 10:25 Blood Culture - Preliminary Peripheral Venipuncture No growth. 06/05/16 03:20 Blood Culture - Final Peripheral Venipuncture Enterococcus faecalis 06/07/16 16:34 Blood Culture - Preliminary Peripheral Venipuncture No growth. 06/02/16 09:42 Sputum Culture - Final Sputum Acinetobacter jo ann/haem MDRO Serology 06/10/16 06/05/16 06/03/16 Range/Units 10:45 03:20 04:07 Stool Occult Blood Positive A (Negative) Stl C. diff Tox B Gene Negative (Negative) A. baumannii (PCR) Not Detected (Not Detect) Ksenia albicans (PCR) Not Detected (Not Detect) C. glabrata (PCR) Not Detected (Not Detect) C. krusei (PCR) Not Detected (Not Detect) C. parapsilosis (PCR) Not Detected (Not Detect) C. tropicalis (PCR) Not Detected (Not Detect) Enterobacteriac sp PCR Not Detected (Not Detect) E. cloacae complex PCR Not Detected (Not Detect) Enterococcus sp PCR DETECTED A (Not Detect) E. coli (PCR) Not Detected (Not Detect) H. influenzae (PCR) Not Detected (Not Detect) Klebsiella oxytoca PCR Not Detected (Not Detect) Klebsiella pneumoniae Not Detected (Not Detect) List. monocytogenes PCR Not Detected (Not Detect) N. meningitidis (PCR) Not Detected (Not Detect) Proteus species (PCR) Not Detected (Not Detect) Serratia marcescens PCR Not Detected (Not Detect) Staphylococcus sp PCR Not Detected (Not Detect) Staph aureus (PCR) Not Detected (Not Detect) mecA-Methicil Res Gene N/A (Not Detect) Streptococcus sp PCR Not Detected (Not Detect) Group A Strep DNA Not Detected (Not Detect) Group B Strep (PCR) Not Detected (Not Detect) Strep pneumoniae (PCR) Not Detected (Not Detect) P. aeruginosa (PCR) Not Detected (Not Detect) Kirstie/B-Vanco Res Genes Not Detected (Not Detect) KPC (blaKPC) Detect PCR N/A (Not Detect) - Impressions Impressions Guidance Needle Placement Ultrasound 06/11/16 00:00 IMPRESSION: Successful ultrasound and fluoroscopy guided tunneled catheter placement . D/ / Dick Hu MD / Dick Hu MD Interpreting Provider: Dick Hu MD Insertion Tunneled Catheter 06/11/16 00:00 IMPRESSION: Successful ultrasound and fluoroscopy guided tunneled catheter placement . D/ / Dick Hu MD / Dick Hu MD Interpreting Provider: Dick Hu MD Exam - Constitutional Vitals: Temp Pulse Resp BP Pulse Ox 98.5 F 100 28 95/57 100 06/12/16 07:47 06/12/16 07:47 06/12/16 07:47 06/12/16 07:47 06/12/16 07:47 General appearance: no acute distress, thin, no cooperative - Head Head exam: Present: atraumatic, normal inspection, normocephalic - Eye Eye exam: Present: EOMI, normal appearance, PERRL Pupils: Present: normal accommodation - ENT ENT exam: Present: mucous membranes moist - Neck Neck exam: Present: normal inspection Additional comments: Tracheostomy midline with O2 via the ventilator. AC rate 14, FiO2 28%. - Respiratory Respiratory exam: Present: CTAB, tachypnea. Absent: respiratory distress, rhonchi, wheezes - Cardiovascular Cardiovascular exam: Present: irregular rhythm, tachycardia - GI/Abdominal GI/Abdominal exam: Present: normal bowel sounds, soft. Absent: distended, tenderness Additional comments: PEG tube noted to the epigastric region with tube feeds infusing. - Extremities Exam Extremities exam: Absent: joint swelling, pedal edema, tenderness Additional comments: Muscle wasting and contractures noted to the BLE. Patient winces in pain when attempting to reposition. DP 2+ bilaterally. - Neurological Exam Neurological exam: Present: altered (Minimally responsive, does not follow commands.) - Skin Skin exam: Present: dry, intact, normal color, warm - Additional findings Additional findings: Tunneled dialysis catheter noted to the base of the right side of the neck. Dressing C/D/I. No erythema or evidence of tenderness noted on exam. - VTE Documentation of Mechanical Device: Intermittent pneumatic compression device Consult Discharge Plan - Plan Referrals: NO,PCP [Primary Care Provider] - (pt is from [facility] 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
[2016-06-12] MEDS: Pantoprazole 40 MG VIAL IVP SCH (09:53)
[2016-06-12] MEDS: Nystatin SUSP 5 ML UD.LIQ PO SCH (09:54)
[2016-06-12] MEDS: Gabapentin 100 MG CAPSULE GTUBE SCH (09:54)
[2016-06-12] MEDS: Finasteride 5 MG TABLET PO SCH (09:54)
[2016-06-12] MEDS: Multivitamin Liquid 15 ML UDC PO SCH (09:54)
[2016-06-12] MEDS: Chlorhexidine Rinse 15 ML MOUTHWASH MM SCH ×2 (09:54→21:46)
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
[2016-06-12] MEDS ORDERED: Vancomycin 1 EACH in D5% in Water 250 ML IVPB SCH (12:00)
[2016-06-12] MEDS: Ascorbic Acid 500 MG TABLET GTUBE SCH ×2 (12:13→21:45)
[2016-06-12] MEDS ORDERED: Vancomycin 1,000 MG in D5% in Water 250 ML IVPB ONE (12:30)
[2016-06-12] MEDS ORDERED: Fluconazole 100 MG TABLET GTUBE ONE (12:45)
--- NOTE | 2016-06-12 13:21 | Nephrology Progress Note ---
Date of Encounter: 06/12/16 Time of Encounter: 13:20 - Assessment and Plan (1) ESRD (end stage renal disease) Current Visit: Yes Status: Chronic Since the patient's blood cultures remain negative we can place a tunnel dialysis catheter today and then proceed with dialysis. I am going to discontinue his IV fluids. (2) Atrial fibrillation with RVR Current Visit: Yes Status: Inactive (3) Acute and chronic respiratory failure Current Visit: Yes Status: Acute Qualifiers: Respiratory failure complication: hypoxia Qualified Code(s): J96.21 - Acute and chronic respiratory failure with hypoxia Subjective Principal diagnosis: Chronic respiratory failure with hypoxia, tracheostomy status Interval history: The patient remains on the ventilator. He is nonverbal. He had a tunnel dialysis catheter placed yesterday. He does have a hematoma at the insertion site. Objective - Vital Signs Vital signs: Vital Signs Temp Pulse Resp BP Pulse Ox 06/12/16 12:13 97 F L 89 101/79 99 06/12/16 09:25 96 06/12/16 07:47 98.5 F 100 28 95/57 100 06/12/16 03:29 98.2 F 91 24 95/60 100 06/12/16 00:56 98.7 F 85 25 87/54 100 06/11/16 23:04 26 95 06/11/16 20:34 40 123/68 98 06/11/16 18:43 98.1 F 130 28 123/68 100 06/11/16 18:25 98.0 F 20 134/52 06/11/16 18:15 110/51 06/11/16 18:00 109/57 06/11/16 17:45 111/54 06/11/16 17:30 113/53 06/11/16 17:15 107/49 06/11/16 17:00 114/44 06/11/16 16:45 111/52 06/11/16 16:30 123/45 06/11/16 16:15 113/50 06/11/16 16:00 130/45 06/11/16 15:45 115/49 06/11/16 15:30 131/59 06/11/16 15:15 98.0 F 22 127/54 Intake and Output 06/11/16 06/12/16 06/12/16 23:59 07:59 15:59 Intake Total 750 / 750 500 / 500 1242 / 1242 Output Total 2600 / 2600 150 / 150 Balance -1850 / -1850 500 / 500 1092 / 1092 Intake: IV Fluids 550 / 550 0.9 % Sodium Chloride 1, 450 / 450 000 ML @ 50 mls/hr IVC . Q20H ERNESTO Rx#:[id number] Unasyn 3,000 mg In 0.9 % 100 / 100 Sodium Chloride (Mini-Bag +) 100 ML @ 200 mls/hr IVPB Q12H ERNESTO Rx#: [id number] Tube Feeding 742 / 742 Free Water 250 / 250 Free Water Intake Amount 200 / 200 500 / 500 250 / 250 Output: Total Dialysis Output 2600 / 2600 Rectal Tube 150 / 150 Other: Stool Size Moderate Stool Consistency liquid Stool Color Brown Weight 62.6 kg Blood Glucose* 98 111 114 Hemodialysis Net Fluid 2000 Removed (mL) Patient Weight 06/12/16 23:59 Weight 62.6 kg - General Appearance Exam: Patient is nonverbal. He appears chronically ill. He is on the ventilator. He is in no acute distress. Lung sounds. Heart irregular rate and rhythm. Abdomen is soft. PEG tube is in place. There is no peripheral edema. Tunnel dialysis catheter is in place. There is a hematoma at the insertion site. No active bleeding is noted. - Lab 06/11/16 04:13 06/12/16 05:16 Most recent lab results ABG pH 7.50 pH Units (7.32-7.45) H 06/05/16 04:31 ABG pCO2 39 mmHg (35-45) 06/05/16 04:31 ABG pO2 86 mmHg (85-104) 06/05/16 04:31 ABG HCO3 30.4 mEQ/L (21-27) H 06/05/16 04:31 ABG O2 Saturation 97 % (95-98) 06/05/16 04:31 Calcium 8.3 mg/dL (8.6-10.8) L 06/12/16 05:16 Phosphorus 4.1 mg/dL (2.3-4.7) 06/11/16 04:13 Magnesium 1.6 mg/dL (1.6-2.6) 06/09/16 03:39 - VTE Documentation of Mechanical Device: Intermittent pneumatic compression device Consult Discharge Plan - Plan Referrals: NO,PCP [Primary Care Provider] - (pt is from [facility] 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
[2016-06-12] MEDS: ALPRAZolam 0.25 MG TABLET GTUBE PRN (18:22)
[2016-06-12] MEDS: Haloperidol Lactate 5 MG/ML VIAL IVP PRN (18:56)
[2016-06-12] MEDS: Mirtazapine 15 MG TABLET GTUBE SCH (21:45)
[2016-06-13 04:56] LABS: Hematocrit 25.6 % (37.5-50.1); Immature Granulocytes % 2.9 % (0-4); Lymphocytes # 0.5 K/mcL (0.6-4.6); Lymphocytes % 7.3 %; Mean Corpuscular HGB Conc 31.3 g/dL (31.6-35.5); Mean Corpuscular Hemoglobin 27.7 pg (28.0-33.3); Mean Corpuscular Volume 88.6 fL (83.0-100.0); Mean Platelet Volume 11.3 fL (9.4-12.4); Monocytes # 0.8 K/mcL (0.0-1.3); Monocytes % 12.9 %; Neutrophils # 4.8 K/mcL (1.6-8.9); Platelet Count 108 K/mcL (140-400); Red Blood Count 2.89 M/mcL (4.19-5.50); Red Cell Distribution Width 17.1 % (11.5-14.5); Segmented Neutrophils % 76.9 %
[2016-06-13 05:15] LABS: Calcium 8.5 mg/dL (8.6-10.8); Potassium 4.5 mEq/L (3.5-4.5)
[2016-06-13 05:17] LABS: Albumin/Globulin Ratio 0.4 (1.1-2.2); Bilirubin,Total 0.4 mg/dL (0.2-1.2); Calcium 8.5 mg/dL (8.6-10.8); Globulin 4.2 g/dL (2.4-3.5); Potassium 4.4 mEq/L (3.5-4.5); Total Protein 5.9 g/dL (6.0-8.3)
[2016-06-13 05:18] LABS: Albumin 1.7 g/dL (3.5-5.0)
[2016-06-13] MEDS: *HR* Heparin 5,000 UNIT/ML VIAL SQ SCH (06:24)
[2016-06-13] MEDS ORDERED: 0.9 % Sodium Chloride 250 ML IVC PRN (08:39)
[2016-06-13] MEDS ORDERED: *HR* Heparin 10,000 UNIT/10 ML VIAL IV PRN (08:39)
[2016-06-13] MEDS: Gabapentin 100 MG CAPSULE GTUBE SCH (08:41)
[2016-06-13] MEDS: Chlorhexidine Rinse 15 ML MOUTHWASH MM SCH (08:41)
[2016-06-13] MEDS: Finasteride 5 MG TABLET PO SCH (08:41)
[2016-06-13] MEDS: Multivitamin Liquid 15 ML UDC PO SCH (08:41)
[2016-06-13] MEDS: Pantoprazole 40 MG VIAL IVP SCH (08:41)
[2016-06-13] MEDS ORDERED: 0.9 % Sodium Chloride 1,000 ML PRIME SCH (08:45)
[2016-06-13] MEDS ORDERED: Fluconazole 100 MG TABLET GTUBE SCH (09:00)
[2016-06-13] MEDS: Ascorbic Acid 500 MG TABLET GTUBE SCH (09:05)
[2016-06-13] MEDS ORDERED: 0.9 % Sodium Chloride 2,000 ML ONE (09:10)
--- NOTE | 2016-06-13 10:51 | Infectious Disease Progress No ---
Date of Encounter: 06/13/16 Time of Encounter: 10:47 - Assessment and Plan (1) Sepsis Current Visit: Yes Status: Acute The patient had three SIRS criteria (tachycardia, bandemia, and fever) on admission. Likely secondary to bacteremia. Improved. Bandemia has resolved and the patient has been afebrile >48 hours. He continues to have some intermittent tachycardia. Blood cultures drawn 05/31/16 at [facility] were positive 2/2 sets for E. faecalis. Repeat blood cultures drawn 06/05/16 were positive 1/2 sets for E. faelcalis. Additional blood cultures drawn 06/08/16 x 2 sets and 06/09 x 1 set are NGTD. Qualifiers: Sepsis type: sepsis due to unspecified organism Qualified Code(s): A41.9 - Sepsis, unspecified organism (2) Bacteremia Current Visit: Yes Status: Acute Source likely the patient's Perma-cath, which was discontinued 06/07/16. Complicated due to the presence of the patient's pacemaker. Clinically, the pacemaker does not look infected. Blood cultures drawn 05/31/16 at [facility] were positive 2/2 sets for E. faecalis. Repeat blood cultures drawn 06/05/16 were positive 1/2 sets for E. faelcalis. Additional blood cultures drawn 06/08/16 x 2 sets and 06/09 x 1 set are NGTD. Blood cultures were obtained from the Perma-cath 06/10/16 and are NGTD. Perma-cath was removed and catheter tip was sent for culture. Culture came back positive for S. epi. I still believe that this was the likely source of the patient's persistent bacteremia given the clinical picture. CHIQUITA attempted, but unsuccessful due to inability to pass the probe. TTE completed and was negative for valvular vegetations. No endocarditis stigmata noted on exam. The patient has one major and one minor Modified Garcia's criteria.--> possibe Infective Endocarditis. Unasyn discontinued per the primary team and started on Vanc per our recommendations for easier dosing on discharge. Duration of treatment depends on the clinical picture, but would recommend 14 days of antibiotics from the first set of negative blood cultures. Treat through 06/22/16. Repeat blood cultures 1 week after antibiotics are stopped. If they are positive, would recommend re-starting treatment for six weeks and possible evaluation for removal of Pacemaker. (3) Pneumonia Current Visit: Yes Status: Acute Sputum culture positive for MDRO Acinetobacter - colonization vs. active infection? Given the patient's chronic tracheostomy, I am more inclined to think this is colonization rather than an acute infection. CXR completed 06/04/16 showed findings consistent with acute CHF rather than PNA. Completed 5 days of IV Unasyn. Would advise against further treatment at this time. Qualifiers: Pneumonia type: due to unspecified organism Laterality: unspecified laterality Lung location: unspecified part of lung Qualified Code(s): J18.9 - Pneumonia, unspecified organism (4) Encephalopathy Current Visit: Yes Status: Acute Likely multifactorial, but I am unsure what the patient's baseline is. Appears improved today. Overall, the patient's prognosis is poor given his current medical conditions in conjunction with his multiple chronic comorbidities. Palliative care team consulted and following. Patient's family wishes that the patient remain full code. (5) Esophageal candidiasis Current Visit: Yes Status: Acute EGD performed 06/04/16 showed findings consistent with esophageal candidasis in the distal third of the esophagus, as well as fungal overgrowth noted in the stomach. Continue fluconazole 200mg per PEG tube x 14 days. (6) Fungal gastroenteritis Current Visit: Yes Status: Acute (7) Atrial fibrillation with RVR Current Visit: Yes Status: Acute Rate intermittently controlled with Cardizem per PEG tube. Cardiology consulted for assistance with management. (8) Pulmonary edema Current Visit: Yes Status: Acute Likely secondary to the patient being unable to undergo dialysis on the day of admission. Management per the primary team. Qualifiers: Chronicity: acute Qualified Code(s): J81.0 - Acute pulmonary edema (9) Anemia, chronic disease Current Visit: Yes Status: Chronic Hgb stable around 8. FOBT positive. EGD negative for bleeding. Has received a total of 3 units of PRBCs. Management per the primary team. (10) Chronic respiratory failure with hypoxia Current Visit: Yes Status: Acute (11) ESRD (end stage renal disease) Current Visit: Yes Status: Chronic Gets HD M/W/F. Nephrology consulted and following. (12) Thrombocytopenia Current Visit: Yes Status: Chronic Chronic per the medical record. Etiology unclear. Management per the primary team. - Subjective Interval history: Patient seen and examined. No acute events noted overnight. Patient seen in the HD unit. Appears more alert today and follows some commands. Appears to trying to answer questions when asked. Patient continues to breath over the vent. He has been afebrile. The patient continues to have loose stool via his rectal tube. He does wince in pain with movement of his BLE. Infect Dis PN-Objective Data - Labs CBC & Chem 7: 06/13/16 04:38 06/13/16 04:38 Labs: Laboratory Results - last 24 hr 06/11/16 06/12/16 06/12/16 20:53 00:48 03:22 WBC RBC Hgb Hct MCV MCH MCHC RDW Plt Count MPV Immature Gran % Seg Neutrophils % Lymphocytes % Monocytes % Eosinophils % Basophils % Neutrophils # Lymphocytes # Monocytes # Eosinophils # Basophils # Sodium Potassium Chloride Carbon Dioxide BUN Creatinine Est GFR ( Amer) Est GFR (Non-Af Amer) BUN/Creatinine Ratio Glucose POC Glucose 98 H 109 H 117 H Calculated Osmolality Calcium Total Bilirubin AST ALT Alkaline Phosphatase Serum Total Protein Albumin Globulin Albumin/Globulin Ratio 06/12/16 06/12/16 06/12/16 07:52 12:12 16:59 WBC RBC Hgb Hct MCV MCH MCHC RDW Plt Count MPV Immature Gran % Seg Neutrophils % Lymphocytes % Monocytes % Eosinophils % Basophils % Neutrophils # Lymphocytes # Monocytes # Eosinophils # Basophils # Sodium Potassium Chloride Carbon Dioxide BUN Creatinine Est GFR ( Amer) Est GFR (Non-Af Amer) BUN/Creatinine Ratio Glucose POC Glucose 111 H 114 H 111 H Calculated Osmolality Calcium Total Bilirubin AST ALT Alkaline Phosphatase Serum Total Protein Albumin Globulin Albumin/Globulin Ratio 06/12/16 06/12/16 06/13/16 19:52 23:41 04:38 WBC RBC Hgb Hct MCV MCH MCHC RDW Plt Count MPV Immature Gran % Seg Neutrophils % Lymphocytes % Monocytes % Eosinophils % Basophils % Neutrophils # Lymphocytes # Monocytes # Eosinophils # Basophils # Sodium 140 Potassium 4.5 Chloride 104 Carbon Dioxide 24 BUN 80 H D Creatinine 3.48 H Est GFR ( Amer) 21 L Est GFR (Non-Af Amer) 17 L BUN/Creatinine Ratio 23 Glucose 115 H POC Glucose 105 H 115 H Calculated Osmolality 315 H Calcium 8.5 L Total Bilirubin AST ALT Alkaline Phosphatase Serum Total Protein Albumin Globulin Albumin/Globulin Ratio 06/13/16 06/13/16 04:38 04:38 WBC 6.2 RBC 2.89 L Hgb 8.0 L Hct 25.6 L MCV 88.6 MCH 27.7 L MCHC 31.3 L RDW 17.1 H Plt Count 108 L MPV 11.3 Immature Gran % 2.9 Seg Neutrophils % 76.9 Lymphocytes % 7.3 Monocytes % 12.9 Eosinophils % 0.0 Basophils % 0.0 Neutrophils # 4.8 Lymphocytes # 0.5 L Monocytes # 0.8 Eosinophils # 0.0 Basophils # 0.0 Sodium 138 Potassium 4.4 Chloride 103 Carbon Dioxide 24 BUN 79 H Creatinine 3.52 H Est GFR ( Amer) 20 L Est GFR (Non-Af Amer) 17 L BUN/Creatinine Ratio 22 Glucose 114 H POC Glucose Calculated Osmolality 311 H Calcium 8.5 L Total Bilirubin 0.4 AST 49 H ALT 63 H Alkaline Phosphatase 149 H Serum Total Protein 5.9 L Albumin 1.7 L Globulin 4.2 H Albumin/Globulin Ratio 0.4 L Cultures: Cultures 06/07/16 16:34 Blood Culture - Final Peripheral Venipuncture No growth. 06/07/16 19:41 Catheter Tip Culture - Final Intravenous or Arterial Cath Staphylococcus epidermidis 06/05/16 03:23 Blood Culture - Final Peripheral Venipuncture No growth. 06/09/16 03:39 Blood Culture - Preliminary Peripheral Venipuncture No growth. 06/08/16 10:26 Blood Culture - Preliminary Peripheral Venipuncture No growth. 06/08/16 10:25 Blood Culture - Preliminary Peripheral Venipuncture No growth. 06/05/16 03:20 Blood Culture - Final Peripheral Venipuncture Enterococcus faecalis 06/02/16 09:42 Sputum Culture - Final Sputum Acinetobacter jo ann/haem MDRO Serology 06/10/16 06/05/16 06/03/16 Range/Units 10:45 03:20 04:07 Stool Occult Blood Positive A (Negative) Stl C. diff Tox B Gene Negative (Negative) A. baumannii (PCR) Not Detected (Not Detect) Ksenia albicans (PCR) Not Detected (Not Detect) C. glabrata (PCR) Not Detected (Not Detect) C. krusei (PCR) Not Detected (Not Detect) C. parapsilosis (PCR) Not Detected (Not Detect) C. tropicalis (PCR) Not Detected (Not Detect) Enterobacteriac sp PCR Not Detected (Not Detect) E. cloacae complex PCR Not Detected (Not Detect) Enterococcus sp PCR DETECTED A (Not Detect) E. coli (PCR) Not Detected (Not Detect) H. influenzae (PCR) Not Detected (Not Detect) Klebsiella oxytoca PCR Not Detected (Not Detect) Klebsiella pneumoniae Not Detected (Not Detect) List. monocytogenes PCR Not Detected (Not Detect) N. meningitidis (PCR) Not Detected (Not Detect) Proteus species (PCR) Not Detected (Not Detect) Serratia marcescens PCR Not Detected (Not Detect) Staphylococcus sp PCR Not Detected (Not Detect) Staph aureus (PCR) Not Detected (Not Detect) mecA-Methicil Res Gene N/A (Not Detect) Streptococcus sp PCR Not Detected (Not Detect) Group A Strep DNA Not Detected (Not Detect) Group B Strep (PCR) Not Detected (Not Detect) Strep pneumoniae (PCR) Not Detected (Not Detect) P. aeruginosa (PCR) Not Detected (Not Detect) Kirstie/B-Vanco Res Genes Not Detected (Not Detect) KPC (blaKPC) Detect PCR N/A (Not Detect) Exam - Constitutional Vitals: Temp Pulse Resp BP Pulse Ox 98.6 F 92 18 110/56 100 06/13/16 09:55 06/13/16 08:00 06/13/16 09:55 06/13/16 09:55 06/13/16 07:57 General appearance: no acute distress, thin, no febrile - Head Head exam: Present: atraumatic, normal inspection, normocephalic - Eye Eye exam: Present: EOMI, normal appearance, PERRL Pupils: Present: normal accommodation Additional comments: No subconjunctival hemorrhage noted. - ENT ENT exam: Present: mucous membranes moist - Neck Neck exam: Present: normal inspection Additional comments: Tracheostomy midline with O2 via the ventilator. TDC noted to the right neck with hematoma noted. No erythema, tenderness, or active drainage noted. - Respiratory Respiratory exam: Present: rhonchi (Scattered), tachypnea. Absent: rales, respiratory distress, wheezes - Cardiovascular Cardiovascular exam: Present: irregular rhythm, tachycardia - GI/Abdominal GI/Abdominal exam: Present: normal bowel sounds, soft. Absent: distended, tenderness Additional comments: PEG tube noted with tube feeds infusing. - Extremities Exam Extremities exam: Absent: joint swelling, pedal edema, tenderness Additional comments: Muscle wasting and contractures noted to the BLE. Neetu remains C/D/I to the right knee. - Neurological Exam Neurological exam: Present: alert (opens eyes to verbal stimuli. Remains non- verbal. Follow some commands. Moves all extremities on command. ), strengths equal and symetr throughout (BUE weak, but symmetrical bilaterally.). Absent: facial droop - Skin Skin exam: Present: dry, intact, normal color, warm - VTE Documentation of Mechanical Device: Intermittent pneumatic compression device Consult Discharge Plan - Plan Referrals: NO,PCP [Primary Care Provider] - (pt is from [facility] 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
[2016-06-13] MEDS ORDERED: Fluconazole 100 MG TABLET PO ONE (11:59)
--- NOTE | 2016-06-13 13:12 | Nephrology Progress Note ---
Date of Encounter: 06/13/16 Time of Encounter: 12:40 - Assessment and Plan (1) ESRD (end stage renal disease) Current Visit: Yes Status: Chronic HD in progress. Hematoma resolving at cath site Subjective Principal diagnosis: Chronic respiratory failure with hypoxia, tracheostomy status Interval history: Trach > vent. Alert, focuses. Seen on HD. Objective - Vital Signs Vital signs: Vital Signs Temp Pulse Resp BP Pulse Ox 06/13/16 12:25 112/60 06/13/16 12:10 100/62 06/13/16 11:58 76 06/13/16 11:55 119/59 06/13/16 11:40 107/55 06/13/16 11:25 116/71 06/13/16 11:10 93/54 06/13/16 11:05 93/54 06/13/16 10:55 96/46 06/13/16 10:40 92/47 06/13/16 10:25 93/43 06/13/16 10:10 117/54 06/13/16 09:55 98.6 F 18 110/56 06/13/16 08:00 92 06/13/16 07:57 32 100 06/13/16 07:41 98.8 F 92 26 98/55 100 06/13/16 05:01 15 100 06/13/16 05:00 98.7 F 105 32 114/73 100 06/12/16 23:43 98.6 F 85 28 116/68 100 06/12/16 23:41 13 100 06/12/16 20:05 98.0 F 92 30 109/76 100 06/12/16 17:04 98.3 F 76 28 112/52 100 06/12/16 16:00 28 99 06/12/16 15:25 88 06/12/16 15:16 107/67 Intake and Output 06/12/16 06/13/16 06/13/16 23:59 07:59 15:59 Intake Total 250 / 250 500 / 500 1670 / 1670 Balance 250 / 250 500 / 500 1670 / 1670 Intake: Oral 0 / 0 Tube Feeding 1070 / 1070 Intake, Rinseback and 600 / 600 Flushes Free Water Intake Amount 250 / 250 500 / 500 0 / 0 Other: Meal Breakfast Percent of Meal Consumed 0% Weight 61.4 kg Blood Glucose* 115 115 121 Hemodialysis Net Fluid 3406 Removed (mL) Patient Weight 06/13/16 23:59 Weight 61.4 kg - General Appearance General appearance: Present: chronically ill, frail EENT: Present: mucous membranes moist Neck: Present: no JVD Respiratory: Present: rhonchi Cardiology: Present: no edema, irregular rhythm Gastrointestinal: Present: normoactive bowel sounds, no tenderness Integumentary: Present: warm and dry Psychiatric: Present: cooperative - Lab 06/13/16 04:38 06/13/16 04:38 Most recent lab results ABG pH 7.50 pH Units (7.32-7.45) H 06/05/16 04:31 ABG pCO2 39 mmHg (35-45) 06/05/16 04:31 ABG pO2 86 mmHg (85-104) 06/05/16 04:31 ABG HCO3 30.4 mEQ/L (21-27) H 06/05/16 04:31 ABG O2 Saturation 97 % (95-98) 06/05/16 04:31 Calcium 8.5 mg/dL (8.6-10.8) L 06/13/16 04:38 Phosphorus 4.1 mg/dL (2.3-4.7) 06/11/16 04:13 Magnesium 1.6 mg/dL (1.6-2.6) 06/09/16 03:39 - VTE Documentation of Mechanical Device: Intermittent pneumatic compression device Consult Discharge Plan - Plan Referrals: NO,PCP [Primary Care Provider] - (pt is from ECF 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
--- NOTE | 2016-06-13 13:17 | Physician Discharge Referral ---
ExtendedCare Referral Info Transfer To: [place] Provider in Charge after Transfer: PCP, Other (SNF physician) Institutional Level of Care: Skilled - Diagnosis (1) Pneumonia Priority: Primary Status: Acute (2) Sepsis Priority: Primary Status: Acute (3) ESRD (end stage renal disease) Priority: Secondary Status: Chronic (4) Acute and chronic respiratory failure Priority: Primary Status: Acute (5) Anemia, chronic disease Priority: Secondary Status: Chronic (6) Fungal gastroenteritis Priority: Primary Status: Acute (7) Bacteremia associated with intravascular line Priority: Primary Status: Acute (8) Atrial fibrillation with RVR Priority: Primary Status: Acute (9) DVT prophylaxis Priority: Secondary Status: Acute (10) Esophageal candidiasis Priority: Primary Status: Acute (11) Thrombocytopenia Priority: Secondary Status: Chronic Prognosis: Poor Aware of Diagnosis: Family Aware of Prognosis: Family - Transfer Medications Prescriptions: Diltiazem [Cardizem] 45 mg PO Q6HR #90 tablet Alprazolam [Xanax 0.25 MG Tablet] 0.25 mg GTUBE Q6H PRN #15 tablet PRN Reason: Anxiety Fluconazole [Diflucan] 200 mg GTUBE DAILY #14 tablet Gabapentin [Neurontin] 100 mg GTUBE DAILY #30 capsule Vancomycin [Vancocin (wt based)] 1,000 mg IV POSTDI #8 vial Home Medications: Ascorbate Calcium [Vitamin C] 500 mg GTUBE BID 05/24/16 [History] Atorvastatin Calcium [Lipitor] 20 mg GTUBE HS 05/24/16 [History] Bisacodyl [Dulcolax] 5 mg GTUBE DAILY PRN 05/24/16 [History] Bisacodyl [Dulcolax] 10 mg RC DAILY PRN 05/24/16 [History] Buspirone HCl [Buspar] 11.25 mg GTUBE BID 05/24/16 [History] Finasteride [Proscar] 5 mg PO DAILY 05/24/16 [History] GuaiFENesin Liq [Robitussin Liq] 400 mg GTUBE Q6HR 05/24/16 [History] Ipratropium/Albuterol Neb [Duoneb] 3 ml IH Q2H PRN 05/24/16 [History] Melatonin 3 mg PO HS 05/24/16 [History] Metoprolol Tartrate [Lopressor] 25 mg GTUBE BID 05/24/16 [History] Mirtazapine [Remeron] 30 mg GTUBE HS 05/24/16 [History] Mupirocin Calcium [Bactroban Nasal] 1 appl NS BID 05/24/16 [History] Oxycodone HCl [Oxaydo] 5 mg GTUBE Q4H PRN 05/24/16 [History] Quetiapine Fumarate [SEROquel] 75 mg GTUBE Q8H 05/24/16 [History] Acetaminophen [Arthritis Pain Relief] 650 mg GTUBE Q4H PRN 05/31/16 [History] B Complex C No.10/Folic Acid [Nephronex Liquid] 900 mcg GTUBE DAILY 05/31/16 [ History] Ipratropium/Albuterol Neb [Duoneb] 3 ml IH Q4HR 05/31/16 [History] Mineral Oil/Petrolatum,White [Artificial Tears Eye Ointment] 1 appl BOTH EYES Q4H PRN 05/31/16 [History] Sennosides/Docusate Sodium [Senna Plus] 1 each GTUBE DAILY 05/31/16 [History] Alprazolam [Xanax 0.25 MG Tablet] 0.25 mg GTUBE Q6H PRN #15 tablet 06/13/16 [Rx] Darbepoetin [Aranesp] 60 mcg SQ QWEEK syringe 06/13/16 [Rx] Diltiazem [Cardizem] 45 mg PO Q6HR #90 tablet 06/13/16 [Rx] Fluconazole [Diflucan] 200 mg GTUBE DAILY #14 tablet 06/13/16 [Rx] Gabapentin [Neurontin] 100 mg GTUBE DAILY #30 capsule 06/13/16 [Rx] Vancomycin [Vancocin (wt based)] 1,000 mg IV POSTDI #8 vial 06/13/16 [Rx] Allergies/Adverse Reactions: Allergies No Known Allergies Allergy (Verified 05/24/16 04:21) - Respiratory Orders Other (A/C Vent mode: FiO2 35%, RR 14, Volme 450cc. PEEP 5) Smoking Cessation: Smoking cessation has been advised. For more information, call the [place] Tobacco Quit Line at 6-746-UYRO-NOW. - Lab Orders Lab Orders: Other (include drug levels w/frequency) (Check Vancomycin level post HD days . Adjust dose based on literature review. Repeat Blood culture 2 weeks sometime ~07/06) - Advance Directives Code Status: Full Code - Mobility Orders Bedrest - Rehabiliation Orders Rehab Potential: Poor Other: PER SNF policies - Diet Orders Tube Feedings (type/amount/rate): Nepro at 55cc/hr Flush Tube (type/amount/frequency): 250cc free water q6h CERTIFICATION: I certify that the transfer of the above named patient to an Extended Care Facility is necessary for the continuing treatment of the diagnosis listed. The above information is true and accurate reflection of patient's current condition. Confidential - Redisclosure prohibited without a patient's written consent.
--- NOTE | 2016-06-13 13:34 | Discharge Summary ---
Date of Encounter: 06/13/16 Time of Encounter: 13:31 - Discharge Diagnosis (1) Pneumonia Priority: Primary Status: Acute Comments: Sputum culture positive for MDRO Acinetobacter - colonization vs. active infection? Given the patient's chronic tracheostomy, I am more inclined to think this is colonization rather than an acute infection. CXR completed 06/04/16 showed findings consistent with acute CHF rather than PNA. Received 5 days of Unasyn and one day of vancomycin Recommend continuation of vancomycin as in Bacteremia diagnosis Qualifiers: Pneumonia type: due to unspecified organism Laterality: unspecified laterality Lung location: unspecified part of lung Qualified Code(s): J18.9 - Pneumonia, unspecified organism (2) Sepsis Priority: Primary Status: Resolved Comments: as in bacteremia and pneumonia Qualifiers: Sepsis type: sepsis due to unspecified organism Qualified Code(s): A41.9 - Sepsis, unspecified organism (3) ESRD (end stage renal disease) Priority: Secondary Status: Chronic Comments: Continue HD as scheduled (4) Acute and chronic respiratory failure Priority: Primary Status: Acute Comments: Vent-dependent, continue vent support Patient is full code Qualifiers: Respiratory failure complication: hypoxia Qualified Code(s): J96.21 - Acute and chronic respiratory failure with hypoxia (5) Anemia, chronic disease Priority: Secondary Status: Chronic (6) Fungal gastroenteritis Priority: Primary Status: Acute Comments: Nystatin per PEG tube for 14 days (7) Bacteremia associated with intravascular line Priority: Primary Status: Acute Comments: Source likely the patient's Perma-cath, which was discontinued 06/07/16. Complicated due to the presence of the patient's pacemaker. Clinically, the pacemaker does not look infected. Blood cultures drawn 05/31/[address] [facility] were positive 2/2 sets for E. faecalis. Repeat blood cultures drawn 06/05/16 were positive 1/2 sets for E. faelcalis. Additional blood cultures drawn 06/08/16 x 2 sets negative Blood culture drawn 06/09 1 set are NGTD. All blood cultures resulted have been drawn peripherally. No blood cultures were obtained from the Perma-cath until 06/10/16, which are pending. TTE completed and was negative for valvular vegetations. No endocarditis stigmata noted on exam. Continue vancomycin through 06/22/16, after HD May give additional doses depending on random vancomycin level after HD. Monitor Vanco trough Infectious disease recommend to repeat blood culture 2 weeks after completion of antibiotics Stable for transfer to nursing facility patient is full code Qualifiers: Encounter type: subsequent encounter Qualified Code(s): T82.7XXD - Infection and inflammatory reaction due to other cardiac and vascular devices, implants and grafts, subsequent encounter; R78.81 - Bacteremia (8) Atrial fibrillation with RVR Priority: Primary Status: Resolved Comments: Started on diltiazem continue same (9) DVT prophylaxis Priority: Secondary Status: Resolved (10) Esophageal candidiasis Priority: Primary Status: Acute Comments: as in fungal enteritis (11) Thrombocytopenia Priority: Secondary Status: Chronic - Discharge Medications Prescriptions: Diltiazem [Cardizem] 45 mg PO Q6HR #90 tablet Alprazolam [Xanax 0.25 MG Tablet] 0.25 mg GTUBE Q6H PRN #15 tablet PRN Reason: Anxiety Gabapentin [Neurontin] 100 mg GTUBE DAILY #30 capsule Nystatin [Nystatin Suspension] 500,000 units PO QID #120 ml Vancomycin [Vancocin] 500 mg IV POSTDI #9 vial Home Medications: Ascorbate Calcium [Vitamin C] 500 mg GTUBE BID 05/24/16 [History] Atorvastatin Calcium [Lipitor] 20 mg GTUBE HS 05/24/16 [History] Bisacodyl [Dulcolax] 5 mg GTUBE DAILY PRN 05/24/16 [History] Bisacodyl [Dulcolax] 10 mg RC DAILY PRN 05/24/16 [History] Buspirone HCl [Buspar] 11.25 mg GTUBE BID 05/24/16 [History] Finasteride [Proscar] 5 mg PO DAILY 05/24/16 [History] GuaiFENesin Liq [Robitussin Liq] 400 mg GTUBE Q6HR 05/24/16 [History] Ipratropium/Albuterol Neb [Duoneb] 3 ml IH Q2H PRN 05/24/16 [History] Melatonin 3 mg PO HS 05/24/16 [History] Metoprolol Tartrate [Lopressor] 25 mg GTUBE BID 05/24/16 [History] Mirtazapine [Remeron] 30 mg GTUBE HS 05/24/16 [History] Mupirocin Calcium [Bactroban Nasal] 1 appl NS BID 05/24/16 [History] Oxycodone HCl [Oxaydo] 5 mg GTUBE Q4H PRN 05/24/16 [History] Quetiapine Fumarate [Seroquel] 75 mg GTUBE Q8H 05/24/16 [History] Acetaminophen [Arthritis Pain Relief] 650 mg GTUBE Q4H PRN 05/31/16 [History] B Complex C No.10/Folic Acid [Nephronex Liquid] 900 mcg GTUBE DAILY 05/31/16 [ History] Ipratropium/Albuterol Neb [Duoneb] 3 ml IH Q4HR 05/31/16 [History] Mineral Oil/Petrolatum,White [Artificial Tears Eye Ointment] 1 appl BOTH EYES Q4H PRN 05/31/16 [History] Sennosides/Docusate Sodium [Senna Plus] 1 each GTUBE DAILY 05/31/16 [History] Alprazolam [Xanax 0.25 MG Tablet] 0.25 mg GTUBE Q6H PRN #15 tablet 06/13/16 [Rx] Darbepoetin [Aranesp] 60 mcg SQ QWEEK syringe 06/13/16 [Rx] Diltiazem [Cardizem] 45 mg PO Q6HR #90 tablet 06/13/16 [Rx] Gabapentin [Neurontin] 100 mg GTUBE DAILY #30 capsule 06/13/16 [Rx] Nystatin [Nystatin Suspension] 500,000 units PO QID #120 ml 06/13/16 [Rx] Vancomycin [Vancocin] 500 mg IV POSTDI #9 vial 06/13/16 [Rx] Allergies/Adverse Reactions: Allergies No Known Allergies Allergy (Verified 05/24/16 04:21) Procedures/tests Complete & Pending: Procedures Performed prior 72 hours Category Date Time Status 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 Family living in hotel currently. 06/01/16 09:51 consult to inside upholsterer [Consult to Nutrition] [CONS] Routine Comment: Consulting Provider: NUTRITION Reason for Dietary Consult: TF Start and Manage 06/05/16 08:30 Consult to Dialysis [CONS] ONCE 06/07/16 07:39 Consult to Hospitalist [CONS] Routine Consulting Provider: Hospitalist Jose Reason for Consult: assume care Call Completed: Yes 06/07/16 08:03 Consult to Cardiology [CONS] Routine Comment: Consulting Provider: Cardiology Joycelyn Reason for Consult: AFIB RVR POSS ENDOCARDITITS Time Notified: 08:07 Call Completed: Yes 06/07/16 09:30 Consult to Dialysis [CONS] ONCE 06/07/16 09:43 Consult to Interventional Radiology [CONS] Routine Consulting Provider: Radiology Interventional Cols Reason for Consult: remove tunneled dialysis catheter today after dialysis, send tip for culture Time Notified: 09:44 Call Completed: No 06/07/16 16:00 Consult to Invasive Line Access Team [CONS] Routine Reason for Consult: poor access Line Type: EPIV 06/10/16 10:35 Consult to Infectious Diseases [CONS] Routine Consulting Provider: Infectious Disease Joycelyn Reason for Consult: Bacteremia Call Completed: Yes 06/11/16 08:14 Consult to Interventional Radiology [CONS] Routine Consulting Provider: Radiology Interventional Cols Reason for Consult: place tunneled dialysis catheter Time Notified: 08:14 Call Completed: No 06/11/16 08:15 Consult to Dialysis [CONS] ONCE 06/11/16 16:25 Consult to Palliative Care [CONS] Routine Comment: Consulting Provider: Palliative Care Joycelyn Reason for Consult: Chronic vent dependence, s/p trach/PEG, goals of care and advanced directives Call Completed: No 06/12/16 08:15 Consult to Dialysis [CONS] ONCE 06/13/16 08:45 Consult to Dialysis [CONS] ONCE Discharging clinician: Rd Iqbal Anticipated date of discharge: 06/13/16 - Patient Status Disposition: Transfer SNF Condition: Undetermined Functional capacity at discharge: bed bound Overall status at discharge: patient is progressing back to baseline - Discharge Instructions Instructions: Atrial Fibrillation (DC), Sepsis (DC) Follow Up With: NO,PCP [Primary Care Provider] - (pt is from ECF 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 - Diet and Activity Activity: other (Vent dependent) Diet: other (Tube feeds) Interval History: See below Hospital course: Mr. Foster is a 81 year old male with chronic respiratory failure, ventilator dependent, s/p trach and PEF, ESRD on HD He was admitted and managed for sepsis, bacteremia, pneumonia, Afib he has been managed appropriately and is stable for discharge Patient's old permacath was removed until bacteremia clearance A new permacath was placed 06/11 and patient resumed hemodialysis. His Afib with RVR has resolved with medication His sepsis has resolved and pneumonia has been duly treated He is stable to be transferred back to the nursing facility Rest of details as in each diagnosis - Time Spent with Patient Total time spent providing and/or coordinating discharge services: Greater than 30 minutes (60 minutes spent on evaluationg this patient, co- ordinating discharge with SW, chart review, literature review, medication reconciliation, prescription and documentation) - Constitutional Vitals: Temp Pulse Resp BP Pulse Ox 98.6 F 76 18 112/60 100 06/13/16 09:55 06/13/16 11:58 06/13/16 09:55 06/13/16 12:25 06/13/16 07:57 General appearance: Present: A&O X 3, no acute distress, answers questions appropriately Exam: VSS, O2 sat 90-92% on Vent,, RR 30s Gen: In mild distress, restless Neuro: AAOX3, moves all limbs spontaneously, HEENT:, Moist mucosa, no cyanosis, FREEMAN. Trach, minimal secretions Chest: Diffuse, coarse breath sounds. R chest wall permacath with minimal oozing Heart: S1, S2,no m/g/r Abdomen: Soft, not tender, no palpably enlarged organs. PEG tube site clean and dry Extremities: Contracted, no edema not evaluated at this time Rectal tube draining - VTE Documentation of Mechanical Device: Intermittent pneumatic compression device
[2016-06-13] MEDS ORDERED: Vancomycin 500 MG in D5% in Water (Mini-Bag+) 100 ML IVPB ONE (16:00)
[2016-06-13 16:14] VITALS: BP 91/46
[2016-06-13] MEDS ORDERED: Aminoglycoside Consult 1 EACH MC ONE (19:08)
[2016-06-14] MEDS ORDERED: Fluconazole 100 MG TABLET PO SCH (09:00)
== END 2016-06-13 19:09 | DRG 252 ==
LOC: SUATTDRO 17:25 → ICNU 17:25 → 2NNU 06-06 17:05
PROVIDERS: ADMIT Internal Medicine; ATTEND Internal Medicine
PROC: IRPERMA (2016-06-11 12:00)

== ENCOUNTER 2016-06-30 12:37 | Inpatient (IN) ==
[2016-06-30] MEDS ORDERED: Acetaminophen 325 MG TABLET PO PRN (15:10)
[2016-06-30] MEDS ORDERED: Naloxone 0.4 MG/ML INJ IVP PRN (15:10)
[2016-06-30] MEDS ORDERED: Ondansetron 4 MG/2 ML VIAL IVP PRN (15:10)
[2016-06-30] MEDS ORDERED: Pantoprazole 80 MG in 0.9 % Sodium Chloride 50 ML IVPB ONE (15:58)
[2016-06-30] MEDS ORDERED: Piperacillin/Tazobactam 3.375 GM in D5% in Water (Mini-Bag+) 100 ML IVPB SCH (16:00)
[2016-06-30] MEDS ORDERED: Vancomycin 1 EACH in D5% in Water 250 ML IVPB SCH (16:00)
[2016-06-30] MEDS ORDERED: *HR* Heparin 5,000 UNIT/ML VIAL SQ SCH (16:00)
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
[2016-06-30] MEDS ORDERED: Vancomycin 1,000 MG in D5% in Water 250 ML IVPB ONE (16:26)
[2016-06-30] MEDS ORDERED: Levofloxacin 250 MG/50 ML 250 MG/50 ML BAG IVPB ONE (17:37)
[2016-06-30] MEDS: Piperacillin/Tazobactam 3.375 GM in D5% in Water (Mini-Bag+) 100 ML IVPB SCH (17:42)
[2016-06-30] MEDS: Fluconazole 200 MG/100 ML 200 MG/100 ML BAG IVPB SCH (17:43)
[2016-06-30] MEDS: Pantoprazole 40 MG VIAL IVP SCH (17:49)
[2016-06-30] MEDS ORDERED: ALPRAZolam 0.25 MG TABLET GTUBE PRN ×2 (18:12→23:43)
[2016-06-30] MEDS: Ipratropium Neb 0.5 MG NEBULIZER IH SCH ×2 (19:54→23:35)
[2016-06-30] MEDS ORDERED: ALPRAZolam 0.5 MG TABLET GTUBE PRN (20:52)
[2016-06-30] MEDS: *HR* OxyCODONE Oral Soln 5 MG/5 ML UD.LIQ GTUBE PRN (23:55)
[2016-07-01 03:40] LABS: Eosinophils % 0.2 %; Mean Corpuscular Hemoglobin 28.8 pg (28.0-33.3); Mean Platelet Volume 10.2 fL (9.4-12.4)
[2016-07-01 03:42] LABS: Hematocrit 19.6 % (37.5-50.1); Hemoglobin 6.3 g/dL (12.9-16.9); Immature Granulocytes % 3.1 % (0-4); Immature Platelets 2.9 % (1.1-6.1); Lymphocytes # 0.5 K/mcL (0.6-4.6); Lymphocytes % 7.4 %; Mean Corpuscular HGB Conc 32.1 g/dL (31.6-35.5); Mean Corpuscular Volume 89.5 fL (83.0-100.0); Monocytes # 0.7 K/mcL (0.0-1.3); Monocytes % 10.5 %; Red Blood Count 2.19 M/mcL (4.19-5.50); Red Cell Distribution Width 17.7 % (11.5-14.5); Segmented Neutrophils % 78.8 %
[2016-07-01] MEDS: *HR* LORazepam 2 MG/ML VIAL IVP PRN ×2 (03:46→14:52)
[2016-07-01] MEDS: Piperacillin/Tazobactam 3.375 GM in D5% in Water (Mini-Bag+) 100 ML IVPB SCH ×2 (03:47→17:27)
[2016-07-01] MEDS: Ipratropium Neb 0.5 MG NEBULIZER IH SCH ×5 (03:52→20:11)
[2016-07-01 03:58] LABS: Albumin/Globulin Ratio 0.4 (1.1-2.2); Bilirubin,Total 0.8 mg/dL (0.2-1.2); Calcium 8.3 mg/dL (8.6-10.8); Globulin 3.9 g/dL (2.4-3.5); Potassium 3.6 mEq/L (3.5-4.5); Total Protein 5.6 g/dL (6.0-8.3)
[2016-07-01 03:59] LABS: Albumin 1.7 g/dL (3.5-5.0)
[2016-07-01 04:03] LABS: Platelet Count 55 K/mcL (140-400)
[2016-07-01 04:06] LABS: Platelet Estimate Decreased (Normal)
[2016-07-01 04:08] LABS: Anisocytosis 1+ (Not Present); Schistocytes 1+ (Not Present)
[2016-07-01 04:09] LABS: Polychromasia 1+ (Not Present)
[2016-07-01] MEDS: Pantoprazole 40 MG VIAL IVP SCH ×2 (05:59→17:29)
[2016-07-01] MEDS ORDERED: 0.9 % Sodium Chloride 500 ML ONE (06:23)
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
[2016-07-01] MEDS: Dexmedetomidine HCl 400 MCG/100 ML MLS IVC SCH ×2 (08:58→20:51)
[2016-07-01] MEDS ORDERED: Levofloxacin 750 MG/150 ML 750 MG/150 ML BAG IVPB SCH (09:00)
[2016-07-01] MEDS: *HR* OxyCODONE Oral Soln 5 MG/5 ML UD.LIQ GTUBE PRN (09:49)
[2016-07-01] MEDS ORDERED: 0.9 % Sodium Chloride 250 ML IVC PRN (10:07)
[2016-07-01] MEDS ORDERED: 0.9 % Sodium Chloride 1,000 ML PRIME SCH (10:15)
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
[2016-07-01 10:25] LABS: Vancomycin,Random 20.5 mcg/mL
[2016-07-01] MEDS ORDERED: Lacri-Lube 3.5 GM TUBE BOTH EYES PRN (11:27)
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
[2016-07-01 13:30] LABS: Hematocrit 26.5 % (37.5-50.1); Hemoglobin 8.8 g/dL (12.9-16.9); Immature Platelets 2.9 % (1.1-6.1); Mean Corpuscular HGB Conc 33.2 g/dL (31.6-35.5); Mean Corpuscular Hemoglobin 29.5 pg (28.0-33.3); Mean Corpuscular Volume 88.9 fL (83.0-100.0); Mean Platelet Volume 10.4 fL (9.4-12.4); Monocytes # 0.5 K/mcL (0.0-1.3); Red Blood Count 2.98 M/mcL (4.19-5.50); Red Cell Distribution Width 16.4 % (11.5-14.5)
[2016-07-01 13:33] LABS: INR 1.3; Prothrombin Time 14.5 Seconds (9.4-12.1)
[2016-07-01 13:55] LABS: Platelet Count 60 K/mcL (140-400)
[2016-07-01 13:57] LABS: Large Platelets Present (Not Present); Lymphocytes # 0.3 K/mcL (0.6-4.6); Neutrophils # 4.5 K/mcL (1.6-8.9); Platelet Estimate Decreased (Normal); Reactive Lymphocytes Present (Not Present)
[2016-07-01 13:58] LABS: Basophilic Stippling 1+ (Not Present); Polychromasia 1+ (Not Present)
[2016-07-01] MEDS ORDERED: Tetracaine/Benzocaine/Butamben 200MG/SPRAY (100SPY/BOT) MM ONE (14:44)
[2016-07-01] MEDS ORDERED: *HR* Midazolam HCl 5 MG/5 ML VIAL IVP PRN (14:44)
[2016-07-01] MEDS ORDERED: *HR* FentaNYL (PF) 100 MCG/2 ML VIAL IVP PRN (14:44)
[2016-07-01] MEDS ORDERED: Calcium Gluconate 1,000 MG in D5% in Water 100 ML IVPB PRN (15:58)
[2016-07-01] MEDS ORDERED: Potassium Phosphate 44 MEQ in 0.9 % Sodium Chloride 250 ML IVPB PRN (15:58)
--- NOTE | 2016-07-01 15:58 | Procedure Note ---
Date of procedure: 07/01/16 Pre-op diagnosis: Abnormal CT scan of the chest Post-op diagnosis: same Procedure: Informed consent was obtained from the patient's . A timeout was performed prior to the procedure. The patient was sedated with intravenous fentanyl and Versed. The bronchoscope was introduced into the trachea via the tracheostomy tube. Hyperdynamic posterior membrane was noted, which impeded visualization and intermittently occluded tracheostomy tube. The bronchoscope was advanced into the right upper lobe. Washings were obtained from the right upper lobe and sent for culture. The patient tolerated the procedure well with no untoward events. Anesthesia: IV sedation Surgeon: Daniel Yap Disposition: ICU
[2016-07-01] MEDS: Lacri-Lube 3.5 GM TUBE BOTH EYES SCH ×3 (17:18→20:52)
[2016-07-01] MEDS: Fluconazole 200 MG/100 ML 200 MG/100 ML BAG IVPB SCH (17:28)
[2016-07-01] MEDS ORDERED: Vancomycin 500 MG in D5% in Water (Mini-Bag+) 100 ML IVPB ONE (20:00)
[2016-07-01] MEDS: Chlorhexidine Rinse 15 ML MOUTHWASH MM SCH (20:51)
[2016-07-01 21:53] LABS: Hematocrit 26.6 % (37.5-50.1); Hemoglobin 8.9 g/dL (12.9-16.9); Immature Platelets 2.8 % (1.1-6.1); Mean Corpuscular HGB Conc 33.5 g/dL (31.6-35.5); Mean Corpuscular Volume 89.6 fL (83.0-100.0); Mean Platelet Volume 11.5 fL (9.4-12.4); Red Blood Count 2.97 M/mcL (4.19-5.50); Red Cell Distribution Width 16.7 % (11.5-14.5)
[2016-07-02] MEDS: Ipratropium Neb 0.5 MG NEBULIZER IH SCH ×7 (00:13→23:39)
[2016-07-02] MEDS: Lacri-Lube 3.5 GM TUBE BOTH EYES SCH ×7 (00:22→23:44)
[2016-07-02 04:49] LABS: ABG Base Excess 5.5 mEq/L (-2.0 to 3.0); ABG HCO3 29.9 mEQ/L (21-27); ABG Oxygen Saturation 100 % (95-98); ABG PCO2 42 mmHg (35-45); ABG PH 7.46 pH Units (7.32-7.45); ABG PO2 248 mmHg (85-104); ABG TCO2 31.2 mEq/L (20-26); Blood Gas FiO2 35 %
[2016-07-02 05:02] LABS: Hemoglobin 8.7 g/dL (12.9-16.9)
[2016-07-02 05:04] LABS: Hematocrit 26.4 % (37.5-50.1); Immature Platelets 2.3 % (1.1-6.1); Mean Corpuscular Hemoglobin 29.5 pg (28.0-33.3); Mean Corpuscular Volume 89.5 fL (83.0-100.0); Platelet Count 55 K/mcL (140-400); Red Blood Count 2.95 M/mcL (4.19-5.50); Red Cell Distribution Width 16.9 % (11.5-14.5)
[2016-07-02] MEDS: Dexmedetomidine HCl 400 MCG/100 ML MLS IVC SCH ×4 (05:06→23:43)
[2016-07-02] MEDS: Piperacillin/Tazobactam 3.375 GM in D5% in Water (Mini-Bag+) 100 ML IVPB SCH ×2 (05:07→17:05)
[2016-07-02 05:12] LABS: Ionized Calcium 1.19 mmol/L (1.15-1.35)
[2016-07-02 05:24] LABS: Calcium 8.4 mg/dL (8.6-10.8); Lymphocytes # 0.7 K/mcL (0.6-4.6); Magnesium 1.4 mg/dL (1.6-2.6); Monocytes # 0.3 K/mcL (0.0-1.3); Neutrophils # 2.9 K/mcL (1.6-8.9); Phosphorous 2.8 mg/dL (2.3-4.7); Potassium 3.6 mEq/L (3.5-4.5)
[2016-07-02 05:25] LABS: Platelet Estimate Decreased (Normal)
[2016-07-02] MEDS: Pantoprazole 40 MG VIAL IVP SCH ×2 (05:45→18:23)
[2016-07-02] MEDS: Magnesium Sulfate 2 GM in D5% in Water 100 ML IVPB PRN (06:22)
[2016-07-02] MEDS: Chlorhexidine Rinse 15 ML MOUTHWASH MM SCH ×2 (08:18→20:34)
--- NOTE | 2016-07-02 08:30 | Nephrology Progress Note ---
Date of Encounter: 07/02/16 Time of Encounter: 08:28 - Assessment and Plan (1) ESRD (end stage renal disease) Current Visit: Yes Status: Chronic Patient remains critically ill. He continues to have dialysis every Friday. His overall prognosis remains quite poor. (2) Pneumonia Current Visit: Yes Status: Acute Qualifiers: Pneumonia type: aspiration pneumonia Laterality: right Lung location: lower lobe of lung Qualified Code(s): J69.0 - Pneumonitis due to inhalation of food and vomit (3) Acute and chronic respiratory failure Current Visit: No Status: Acute Qualifiers: Respiratory failure complication: hypoxia Qualified Code(s): J96.21 - Acute and chronic respiratory failure with hypoxia (4) GI bleed Current Visit: Yes Status: Acute Qualifiers: GI bleed type/associated pathology: unspecified gastrointestinal hemorrhage type Qualified Code(s): K92.2 - Gastrointestinal hemorrhage, unspecified Subjective Interval history: Patient remains on the ventilator. He remains critically ill. He is status post dialysis yesterday. CT scan findings have been reviewed. There is concern for possible esophageal fistula. Objective - Vital Signs Vital signs: Vital Signs Temp Pulse Resp BP Pulse Ox 07/02/16 08:25 104 07/02/16 08:00 104 20 110/71 100 07/02/16 07:30 97.4 F L 07/02/16 07:00 90 18 119/72 100 07/02/16 06:07 26 109/64 100 07/02/16 06:00 100 27 109/64 100 07/02/16 05:00 98 21 115/65 100 07/02/16 04:48 98.4 F 07/02/16 04:17 20 119/65 100 07/02/16 04:00 98.4 F 98 22 119/65 100 07/02/16 03:00 97 25 110/69 100 07/02/16 02:33 21 121/71 100 07/02/16 02:00 90 22 115/60 100 07/02/16 01:00 92 20 119/64 100 07/02/16 00:31 97.4 F L 07/02/16 00:13 22 119/75 100 07/02/16 00:00 97.4 F L 94 16 119/75 100 07/01/16 23:00 79 20 122/77 100 07/01/16 22:34 23 122/79 100 05 22:00 88 18 122/79 100 05 21:58 22 100 05 21:00 87 20 130/82 100 05 20:11 25 123/72 100 05 20:00 109 28 137/77 100 05 19:00 89 22 127/79 99 05 18:00 112 127/79 100 05 17:00 98 107/72 100 05 16:37 22 100 05 16:25 90 05 16:20 96 20 101/66 100 05 16:15 115 20 103/62 100 07/01/16 16:10 105 22 96/57 100 05 16:05 96 22 98/59 100 07/01/16 16:00 114 20 99/60 100 07/01/16 15:55 102 22 105/67 100 05 15:50 105 21 95/77 100 07/01/16 15:45 103 40 135/97 100 07/01/16 15:40 96 39 121/69 100 05 15:35 99 32 113/66 100 07/01/16 15:00 108 109/79 100 07/01/16 14:44 97.7 F 22 111/61 05 14:15 103/61 07/01/16 14:00 95 28 108/68 100 07/01/16 13:59 36 100 05 13:45 93/67 05 13:30 94/64 05 13:15 95/61 05 13:00 105 35 111/77 100 05 12:45 106/74 05 12:30 98/64 05 12:15 99/64 05 12:00 97.7 F 105 35 100/66 100 05 11:45 112/68 05 11:39 35 100 05 11:30 105/70 05 11:15 97.7 F 22 101/60 05 11:00 102 22 105/70 100 05 10:28 99.1 F 113 22 104/63 100 07/01/16 10:13 99.0 F 115 21 98/68 100 07/01/16 09:35 23 100 07/01/16 09:15 99.0 F 123 24 98/68 100 Intake and Output 07/01/16 07/02/16 07/02/16 23:59 07:59 15:59 Intake Total 400 / 400 100 / 100 Output Total 220 / 220 380 / 380 Balance 180 / 180 -280 / -280 Intake: IV Fluids 400 / 400 100 / 100 PRECEDEX 400 mcg In 100 100 / 100 100 / 100 ml @ 0.2 MCG/KG/HR 3.463 mls/hr IVC .Q24H ERNESTO Rx#: [id number] Diflucan Premix 200 MG/ 100 / 100 100 ML 200 mg In 100 ml @ 100 mls/hr IVPB Q24H ERNESTO Rx#:[id number] Zosyn 3.375 GM In 100 / 100 Dextrose 5% (Minibag+) 100 ML 100 ML @ 25 mls/hr IVPB Q12H ERNESTO Rx#: [id number] Vancocin 500 MG In 100 / 100 Dextrose 5% (Minibag+) 100 ML 100 ML @ 100 mls/ hr IVPB ONCE ONE Rx#: [id number] Output: Catheter 100 / 100 250 / 250 Gastric Drainage 120 / 120 130 / 130 Other: Weight 68.13 kg Patient Weight 07/02/16 23:59 Weight 68.13 kg - General Appearance Exam: Patient is sedated on the ventilator. Trach is in place. He has a tunnel dialysis catheter in place. Lungs managed breath sounds. Heart irregular rate and rhythm consistent with atrial fibrillation. Abdomen is soft. There is no guarding nor rigidity. PEG tube is in place. There is some lower extremity swelling. - Lab 07/02/16 04:28 07/02/16 04:28 Most recent lab results ABG pH 7.46 pH Units (7.32-7.45) H 07/02/16 04:31 ABG pCO2 42 mmHg (35-45) 07/02/16 04:31 ABG pO2 248 mmHg (85-104) H 07/02/16 04:31 ABG HCO3 29.9 mEQ/L (21-27) H 07/02/16 04:31 ABG O2 Saturation 100 % (95-98) H 07/02/16 04:31 Calcium 8.4 mg/dL (8.6-10.8) L 07/02/16 04:28 Phosphorus 2.8 mg/dL (2.3-4.7) 07/02/16 04:28 Magnesium 1.4 mg/dL (1.6-2.6) L 07/02/16 04:28 - VTE Documentation of Mechanical Device: Intermittent pneumatic compression device Consult Discharge Plan - Plan Referrals: NO,PCP [Primary Care Provider] -
--- NOTE | 2016-07-02 11:41 | Pulmonology Progress Note ---
<Lowell Arenas - Last Filed: 07/02/16 11:53> Date of Encounter: 07/02/16 Time of Encounter: 11:39 Assessment and Plan (1) Bacterial pneumonia Current Visit: Yes Status: Acute Day 2 of Vacnomycin, Zosyn, and levofloxacin. Cultures from bronchoscopy sent yesterday. GNR have grown. I was present during this procedure and sputum did not seem purulent. CT imaging shows improvement. Will continue current regimen. Patient afebrile with mild leukopenia at this time. Minimal vent support. Question as to whether we should treat based on prior cultures of MDR Acenitobacter ( Sensitive only to Unasyn). We will consult ID for their input. (2) Chronic respiratory failure Current Visit: Yes Status: Acute patient on minimal vent suppport. Vent dependant with tracheostomy. Metting oxygenation and ventilation goals. (3) GI bleed Current Visit: Yes Status: Acute Questionable TEF. CT was inconcluseive. PAtient had EGD on 07/02/16. LArge clot with active bleeding in the esophagous. One clip was placed. Has had continued small amounts of bloody gastric content. DEcrease PPI to daily a his bleed was in the esophagus. May need repeat EGD per DR. Garcia Appreciate GI. Continue to monitor H/H (4) Pancytopenia Current Visit: Yes Status: Acute etiology unclear. No cirrhosis. check hematinics. Further work up pending goals of care. (5) Electrolyte abnormality Current Visit: Yes Status: Acute Mg 1.4 replete (6) Atrial fibrillation Current Visit: Yes Status: Acute NO AC given his bleeding. Currently rate controlled but will need to resume Diltiazem. (7) DVT prophylaxis Current Visit: Yes Status: Acute mechanical only given active bleeding seen on EGD yesterday. (8) Goals of care, counseling/discussion Current Visit: Yes Status: Acute Dr. Yap discussing with patients today. Subjective Principal diagnosis: GI bleed Interval history: No major events overnight. Patient is currently ventilated and has some sedation with Precedex. Unable to obtain any history from him this morning. Objective PUL Vital signs: Last Vital Signs Temp 97.4 F L 07/02/16 07:30 Pulse 94 07/02/16 10:00 Resp 33 07/02/16 11:22 BP 102/65 07/02/16 11:22 Pulse Ox 96 07/02/16 11:22 Gen.: This is a well-developed well-nourished 81-year-old male currently alert but not orientated. Has a trach in place and on ventilator. HEENT: Is normocephalic atraumatic. Anicteric sclera, tracheostomy in place. Heart: Regular rate and rhythm without murmurs rubs or gallops. Currently in sinus rhythm. Lungs: Globally diminished but clear to auscultation bilaterally. Abdomen: Abdomen is soft, nondistended, nontender to palpation. Bowel sounds are positive in all quadrants. Musculoskeletal: He has some gross muscle atrophy with bitemporal wasting. Otherwise no gross deformities noted. Extremities: There is no clubbing, cyanosis or edema. Integument: Is have a she was also is well-dressed on his right hip also on his bilateral heels. Ventilator Settings Ventilator Settings: Ventilator Settings, Last 8 Hours Ventilator Mode A/C Ventilator Mode A/C Ventilator Mode A/C Ventilator Mode A/C Ventilator Mode A/C Ventilator Mode A/C Ventilator Mode A/C Ventilator Tidal Volume 450 Setting Ventilator Tidal Volume 450 Setting Ventilator Tidal Volume 450 Setting Ventilator Tidal Volume 450 Setting Ventilator Tidal Volume 450 Setting Ventilator Tidal Volume 450 Setting Ventilator Tidal Volume 450 Setting Ventilator Respiratory Rate 14 Setting Ventilator Respiratory Rate 14 Setting Ventilator Respiratory Rate 14 Setting Ventilator Respiratory Rate 14 Setting Ventilator Respiratory Rate 14 Setting Ventilator Respiratory Rate 14 Setting Ventilator Respiratory Rate 14 Setting Actual Respiratory Rate 33 Actual Respiratory Rate 35 Actual Respiratory Rate 20 Actual Respiratory Rate 23 Actual Respiratory Rate 22 Actual Respiratory Rate 24 Positive End Expiratory 5 Pressure Positive End Expiratory 5 Pressure Positive End Expiratory 5 Pressure Positive End Expiratory 5 Pressure Positive End Expiratory 5 Pressure Positive End Expiratory 5 Pressure Positive End Expiratory 5 Pressure Peak Inspiratory Airway 35 Pressure Peak Inspiratory Airway 31 Pressure Peak Inspiratory Airway 28 Pressure Peak Inspiratory Airway 33 Pressure Peak Inspiratory Airway 30 Pressure Peak Inspiratory Airway 28 Pressure Results - Laboratory Findings CBC and BMP: 07/02/16 04:28 07/02/16 04:28 ABG ABG pH 7.46 pH Units (7.32-7.45) H 07/02/16 04:31 ABG pCO2 42 mmHg (35-45) 07/02/16 04:31 ABG pO2 248 mmHg (85-104) H 07/02/16 04:31 ABG O2 Saturation 100 % (95-98) H 07/02/16 04:31 PT/INR, D-dimer PT 14.5 Seconds (9.4-12.1) H 07/01/16 13:12 Abnormal lab findings: Abnormal lab results WBC 3.9 K/mcL (4.3-11.1) L 07/02/16 04:28 RBC 2.95 M/mcL (4.19-5.50) L 07/02/16 04:28 Hgb 8.7 g/dL (12.9-16.9) L 07/02/16 04:28 Hct 26.4 % (37.5-50.1) L 07/02/16 04:28 RDW 16.9 % (11.5-14.5) H 07/02/16 04:28 Plt Count 55 K/mcL (140-400) L 07/02/16 04:28 Band Neutrophils % 6.0 % (0-4) H 07/01/16 13:12 Metamyelocytes % 2.0 % (0) H 07/01/16 13:12 Myelocytes % 6.0 % (0) H 07/01/16 13:12 Reactive Lymphocytes Present (Not Present) A 07/01/16 13:12 Platelet Estimate Decreased (Normal) L 07/02/16 04:28 Large Platelets Present (Not Present) A 07/01/16 13:12 Polychromasia 1+ (Not Present) A 07/01/16 13:12 Basophilic Stippling 1+ (Not Present) A 07/01/16 13:12 Anisocytosis 1+ (Not Present) A 07/01/16 03:20 Schistocytes 1+ (Not Present) A 07/01/16 03:20 PT 14.5 Seconds (9.4-12.1) H 07/01/16 13:12 ABG pH 7.46 pH Units (7.32-7.45) H 07/02/16 04:31 ABG pO2 248 mmHg (85-104) H 07/02/16 04:31 ABG HCO3 29.9 mEQ/L (21-27) H 07/02/16 04:31 ABG Total CO2 31.2 mEq/L (20-26) H 07/02/16 04:31 ABG O2 Saturation 100 % (95-98) H 07/02/16 04:31 ABG Base Excess 5.5 mEq/L (-2.0 to 3.0) H 07/02/16 04:31 BUN 42 mg/dL (8-26) H D 07/02/16 04:28 Creatinine 1.81 mg/dL (0.72-1.25) H 07/02/16 04:28 Est GFR ( Amer) 44 (> 60) L 07/02/16 04:28 Est GFR (Non-Af Amer) 36 (> 60) L 07/02/16 04:28 POC Glucose 106 (58-89) H 06/30/16 14:50 Calcium 8.4 mg/dL (8.6-10.8) L 07/02/16 04:28 Magnesium 1.4 mg/dL (1.6-2.6) L 07/02/16 04:28 Serum Total Protein 5.6 g/dL (6.0-8.3) L 07/01/16 03:20 Albumin 1.7 g/dL (3.5-5.0) L 07/01/16 03:20 Globulin 3.9 g/dL (2.4-3.5) H 07/01/16 03:20 Albumin/Globulin Ratio 0.4 (1.1-2.2) L 07/01/16 03:20 - Microbiology Findings Microbiology Findings: Microbiology, Last 48 Hours 07/01/16 13:12 Sputum Culture - Preliminary Sputum Gram Negative Cyrus - Clinical Findings Intake & Output: Intake & Output 07/01/16 07/02/16 07/02/16 23:59 07:59 15:59 Intake Total 400 / 400 100 / 100 100 / 100 Output Total 220 / 220 380 / 380 Balance 180 / 180 -280 / -280 100 / 100 Weight 68.13 kg - VTE Documentation of Mechanical Device: Intermittent pneumatic compression device Consult Discharge Plan - Plan Referrals: NO,PCP [Primary Care Provider] - <Daniel Yap - Last Filed: 07/02/16 16:06> Date of Encounter: 07/02/16 Objective PUL Vital signs: Last Vital Signs Temp 97.7 F 07/02/16 15:31 Pulse 104 07/02/16 15:00 Resp 28 07/02/16 15:05 BP 112/64 07/02/16 15:05 Pulse Ox 100 07/02/16 15:05 Ventilator Settings Ventilator Settings: Ventilator Settings, Last 8 Hours Ventilator Mode A/C Ventilator Mode A/C Ventilator Mode A/C Ventilator Mode A/C Ventilator Mode A/C Ventilator Tidal Volume 450 Setting Ventilator Tidal Volume 450 Setting Ventilator Tidal Volume 450 Setting Ventilator Tidal Volume 450 Setting Ventilator Tidal Volume 450 Setting Ventilator Respiratory Rate 14 Setting Ventilator Respiratory Rate 14 Setting Ventilator Respiratory Rate 14 Setting Ventilator Respiratory Rate 14 Setting Ventilator Respiratory Rate 14 Setting Actual Respiratory Rate 29 Actual Respiratory Rate 30 Actual Respiratory Rate 20 Actual Respiratory Rate 33 Actual Respiratory Rate 35 Positive End Expiratory 5 Pressure Positive End Expiratory 5 Pressure Positive End Expiratory 5 Pressure Positive End Expiratory 5 Pressure Positive End Expiratory 5 Pressure Peak Inspiratory Airway 29 Pressure Peak Inspiratory Airway 28 Pressure Peak Inspiratory Airway 28 Pressure Peak Inspiratory Airway 35 Pressure Peak Inspiratory Airway 31 Pressure Results - Laboratory Findings CBC and BMP: 07/02/16 04:28 07/02/16 04:28 ABG ABG pH 7.46 pH Units (7.32-7.45) H 07/02/16 04:31 ABG pCO2 42 mmHg (35-45) 07/02/16 04:31 ABG pO2 248 mmHg (85-104) H 07/02/16 04:31 ABG O2 Saturation 100 % (95-98) H 07/02/16 04:31 PT/INR, D-dimer PT 14.5 Seconds (9.4-12.1) H 07/01/16 13:12 Abnormal lab findings: Abnormal lab results WBC 3.9 K/mcL (4.3-11.1) L 07/02/16 04:28 RBC 2.95 M/mcL (4.19-5.50) L 07/02/16 04:28 Hgb 8.7 g/dL (12.9-16.9) L 07/02/16 04:28 Hct 26.4 % (37.5-50.1) L 07/02/16 04:28 RDW 16.9 % (11.5-14.5) H 07/02/16 04:28 Plt Count 55 K/mcL (140-400) L 07/02/16 04:28 Band Neutrophils % 6.0 % (0-4) H 07/01/16 13:12 Metamyelocytes % 2.0 % (0) H 07/01/16 13:12 Myelocytes % 6.0 % (0) H 07/01/16 13:12 Reactive Lymphocytes Present (Not Present) A 07/01/16 13:12 Platelet Estimate Decreased (Normal) L 07/02/16 04:28 Large Platelets Present (Not Present) A 07/01/16 13:12 Polychromasia 1+ (Not Present) A 07/01/16 13:12 Basophilic Stippling 1+ (Not Present) A 07/01/16 13:12 Anisocytosis 1+ (Not Present) A 07/01/16 03:20 Schistocytes 1+ (Not Present) A 07/01/16 03:20 PT 14.5 Seconds (9.4-12.1) H 07/01/16 13:12 ABG pH 7.46 pH Units (7.32-7.45) H 07/02/16 04:31 ABG pO2 248 mmHg (85-104) H 07/02/16 04:31 ABG HCO3 29.9 mEQ/L (21-27) H 07/02/16 04:31 ABG Total CO2 31.2 mEq/L (20-26) H 07/02/16 04:31 ABG O2 Saturation 100 % (95-98) H 07/02/16 04:31 ABG Base Excess 5.5 mEq/L (-2.0 to 3.0) H 07/02/16 04:31 BUN 42 mg/dL (8-26) H D 07/02/16 04:28 Creatinine 1.81 mg/dL (0.72-1.25) H 07/02/16 04:28 Est GFR ( Amer) 44 (> 60) L 07/02/16 04:28 Est GFR (Non-Af Amer) 36 (> 60) L 07/02/16 04:28 POC Glucose 106 (58-89) H 06/30/16 14:50 Calcium 8.4 mg/dL (8.6-10.8) L 07/02/16 04:28 Magnesium 1.4 mg/dL (1.6-2.6) L 07/02/16 04:28 Serum Total Protein 5.6 g/dL (6.0-8.3) L 07/01/16 03:20 Albumin 1.7 g/dL (3.5-5.0) L 07/01/16 03:20 Globulin 3.9 g/dL (2.4-3.5) H 07/01/16 03:20 Albumin/Globulin Ratio 0.4 (1.1-2.2) L 07/01/16 03:20 - Microbiology Findings Microbiology Findings: Microbiology, Last 48 Hours 07/01/16 15:37 Acid Fast Stain - Final Bronchial Washings 07/01/16 15:37 Bronchial Aspirate Culture - Preliminary Bronchial Washings Gram Negative Cyrus 07/01/16 13:12 Sputum Culture - Preliminary Sputum Gram Negative Cyrus - Clinical Findings Intake & Output: Intake & Output 07/02/16 07/02/16 07/02/16 07:59 15:59 23:59 Intake Total 100 / 100 200 / 200 Output Total 380 / 380 195 / 195 Balance -280 / -280 5 / Weight 68.13 kg
--- NOTE | 2016-07-02 16:43 | Electrocardiograph Report ---
[place] [id number] Test Date: 2016-06-30 Pat Name: Lowell Foster Department: 109 Room: [facility] Gender: M Herbicide Sprayer: MERNA : 1935 Requested By: Brook Correa Order Number: [id number] Reading MD: Naima Romo Measurements Intervals [place] Rate: 122 P: AK: 0 QRS: 13 QRSD: 106 T: -2 QT: 340 QTc: 413 Interpretive Statements ATRIAL FIBRILLATION WITH RAPID VENTRICULAR RESPONSE INCOMPLETE RIGHT BUNDLE BRANCH BLOCK NONSPECIFIC ST \T\ T-WAVE ABNORMALITY ABNORMAL RHYTHM ECG Electronically Signed On 07-02-2016 16:41:48 EDT by Naima Romo
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
[2016-07-02] MEDS ORDERED: Levofloxacin 500 MG/100 ML 500 MG/100 ML BAG IVPB SCH (18:00)
[2016-07-02] MEDS: *HR* LORazepam 2 MG/ML VIAL IVP PRN (18:16)
[2016-07-02 21:33] LABS: INR 1.3; Prothrombin Time 13.7 Seconds (9.4-12.1)
[2016-07-02 21:37] LABS: Hematocrit 26.9 % (37.5-50.1); Hemoglobin 8.4 g/dL (12.9-16.9); Immature Platelets 2.5 % (1.1-6.1); Mean Corpuscular HGB Conc 31.2 g/dL (31.6-35.5); Mean Corpuscular Hemoglobin 28.7 pg (28.0-33.3); Mean Corpuscular Volume 91.8 fL (83.0-100.0); Mean Platelet Volume 10.5 fL (9.4-12.4); Red Blood Count 2.93 M/mcL (4.19-5.50); Red Cell Distribution Width 17.3 % (11.5-14.5)
[2016-07-03] MEDS: Ipratropium Neb 0.5 MG NEBULIZER IH SCH ×6 (04:21→23:53)
[2016-07-03 04:41] LABS: Hematocrit 27.5 % (37.5-50.1); Hemoglobin 8.8 g/dL (12.9-16.9); Mean Corpuscular Hemoglobin 29.1 pg (28.0-33.3); Mean Corpuscular Volume 91.1 fL (83.0-100.0); Mean Platelet Volume 11.8 fL (9.4-12.4); Red Blood Count 3.02 M/mcL (4.19-5.50); Red Cell Distribution Width 17.5 % (11.5-14.5)
[2016-07-03 04:42] LABS: Platelet Count 62 K/mcL (140-400)
[2016-07-03 04:48] LABS: Ionized Calcium 1.17 mmol/L (1.15-1.35)
[2016-07-03] MEDS: Piperacillin/Tazobactam 3.375 GM in D5% in Water (Mini-Bag+) 100 ML IVPB SCH ×2 (04:48→18:45)
[2016-07-03] MEDS: Dexmedetomidine HCl 400 MCG/100 ML MLS IVC SCH ×3 (04:48→14:24)
[2016-07-03] MEDS: Lacri-Lube 3.5 GM TUBE BOTH EYES SCH ×5 (04:48→20:13)
[2016-07-03 04:53] LABS: Calcium 8.5 mg/dL (8.6-10.8); Magnesium 1.6 mg/dL (1.6-2.6); Potassium 4.2 mEq/L (3.5-4.5)
[2016-07-03 04:56] LABS: ABG Base Excess 1.6 mEq/L (-2.0 to 3.0); ABG HCO3 25.8 mEQ/L (21-27); ABG Oxygen Saturation 100 % (95-98); ABG PCO2 38 mmHg (35-45); ABG PH 7.44 pH Units (7.32-7.45); ABG PO2 222 mmHg (85-104)
[2016-07-03 04:58] LABS: Blood Gas FiO2 35 %; Blood Gas PEEP 5 cm H2O; Blood Gas Respiration Rate 14; Blood Gas VT 450 cc
[2016-07-03 05:11] LABS: Platelet Estimate Decreased (Normal)
[2016-07-03 05:16] LABS: Phosphorous 5.5 mg/dL (2.3-4.7)
[2016-07-03 05:18] LABS: Eosinophils # 0.1 K/mcL (0.0-0.6); Lymphocytes # 0.5 K/mcL (0.6-4.6); Monocytes # 0.6 K/mcL (0.0-1.3); Neutrophils # 4.3 K/mcL (1.6-8.9)
[2016-07-03] MEDS: Pantoprazole 40 MG VIAL IVP SCH ×2 (05:49→18:46)
[2016-07-03 06:01] LABS: Folate 16.9 ng/mL (7.0-31.4)
[2016-07-03] MEDS: Magnesium Sulfate 2 GM in D5% in Water 100 ML IVPB PRN (06:07)
--- NOTE | 2016-07-03 06:39 | Pulmonology Progress Note ---
<Berlin Dumont - Last Filed: 07/03/16 11:10> Date of Encounter: 07/03/16 Time of Encounter: 06:39 Assessment and Plan (1) GI bleed Current Visit: Yes Status: Acute Questionable TEF. CT was inconcluseive. PAtient had EGD on 07/02/16. LArge clot with active bleeding in the esophagous. One clip was placed. Has had continued small amounts of bloody gastric content. DEcrease PPI to daily a his bleed was in the esophagus. May need repeat EGD per DR. Garcia Appreciate GI. Continue to monitor H/H currently NPO, if no restrictions may start tube feeds Qualifiers: GI bleed type/associated pathology: unspecified gastrointestinal hemorrhage type Qualified Code(s): K92.2 - Gastrointestinal hemorrhage, unspecified (2) Tracheostomy dependent Current Visit: Yes Status: Acute (3) HCAP (healthcare-associated pneumonia) Current Visit: Yes Status: Acute Day 3 of Vacnomycin, Zosyn, and Levofloxacin - sputum cultures 2 GNR species - discussed with ID will discontinue Vancomycin bronchoscopy, sputum did not seem purulent - awaiting pathology reports of BAL - remains afebrile - CT imaging shows improvement. Will continue current regimen. Patient afebrile with mild leukopenia at this time. Minimal vent support. Question as to whether we should treat based on prior cultures of MDR Acenitobacter ( Sensitive only to Unasyn). We will consult ID for their input. HCAP. Causative organism unclear. CT of the chest shows multifocal pneumonia in the RUL and RLL. Complicated due to tracheostomy. Status post bronchoscopy. Report reviewed. Findings discussed with Dr. Yap. No gross purulence noted on exam. Bronch washings obtained and shows GNR. Final ID and sensitivities are pending. Repeat CT of the chest shows improvement in PNA. Check S. pneumo and Legionella UAT. Await culture results. 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 May discuss starting Colistin if thought to be the causative organism of the patient's PNA, although it appears the PNA is improving on current ATB regimen. Continue Vancomycin IV for now. Pharmacy to dose. Goal trough approximately 15. Continue Zosyn 3.375 grams IV Q12H --> dosed for HD M//. Continue Levaquin 500mg IV Q48H. Duration of treatment depends on the clinical picture. Monitor renal function and for drug toxicity and dose-adjust antibiotics. (4) ESRD (end stage renal disease) Current Visit: Yes Status: Chronic dialysis MWF (5) Acute and chronic respiratory failure Current Visit: No Status: Acute patient on minimal vent suppport. Vent dependant with tracheostomy. Metting oxygenation and ventilation goals. Qualifiers: Respiratory failure complication: hypoxia Qualified Code(s): J96.21 - Acute and chronic respiratory failure with hypoxia (6) Atrial fibrillation Current Visit: Yes Status: Chronic NO AC given his bleeding. Currently rate controlled but will need to resume Diltiazem. Qualifiers: Atrial fibrillation type: permanent Qualified Code(s): I48.2 - Chronic atrial fibrillation (7) Pleural effusion Current Visit: No Status: Acute CT of the chest shows chronic left sided loculated pleural effusion. Per pulmonology, no indication to drain at this time. (8) Esophageal candidiasis Current Visit: Yes Status: Resolved no evidence of candidiasis on EGD Fluconazole discontinued (9) Decubitus ulcer Current Visit: Yes Status: Acute Multiple decubitus ulcers noted --> coccyx, right foot x 2, left foot x 1, right hip. Clinically, they do not appear infected. Continue off-loading of the bony prominences with frequent turning and re- positioning. Wound care per the wound care team recommendations. Qualifiers: Pressure ulcer location: unspecified location Pressure ulcer stage: unspecified pressure ulcer stage Qualified Code(s): L89.90 - Pressure ulcer of unspecified site, unspecified stage (10) Goals of care, counseling/discussion Current Visit: Yes Status: Acute will discuss with she reportedly has discussed with children (11) DVT prophylaxis Current Visit: Yes Status: Acute mechanical EPCDs given GI bleeding (12) Electrolyte abnormality Current Visit: Yes Status: Acute Mg 1.4 replete (13) Pancytopenia Current Visit: Yes Status: Acute etiology unclear No cirrhosis check hematinics Further work up pending goals of care (14) Sepsis Current Visit: No Status: Resolved The patient had three SIRS criteria on admission. Likely secondary to pneumonia. Improved. The patient has been afebrile since admission. He continues to have intermittent tachycardia. His WBC has normalized. Blood cultures drawn 06/30/16 are NGTD x 2 sets. Qualifiers: Sepsis type: sepsis due to unspecified organism Qualified Code(s): A41.9 - Sepsis, unspecified organism Subjective Principal diagnosis: GI bleed Interval history: No major events overnight. Patient seen and evaluated at bedside. Continues to remain intubated with Precedex sedation. Continues to have some gross chaka blood through urinary catheter from tugging at it yesterday. Does not open eyes to voice. Does not follow commands. Objective PUL Vital signs: Last Vital Signs Temp 98.9 F 07/03/16 04:00 Pulse 72 07/03/16 05:52 Resp 26 07/03/16 05:52 BP 123/63 07/03/16 05:52 Pulse Ox 100 07/03/16 05:52 General appearance: no acute distress (sedated on Precedex), other (ill appearing) Eyes: nonicteric, other (PERRL) Neck: other (midline tracheostomy inplace, right IJ hemodialysis catheter) Effort: normal (mechanically ventilated, symmetric chest rise) Auscultation: bilateral: clear, diminished breath sounds Cardiovascular: regular rate and rhythm Gastrointestinal: hypoactive bowel sounds, soft, non-tender, non-distended, other (PEG mid abdomen, no active bleeding) Integumentary: decubitus ulcer (stage II on right hip (9cm x 5 cm) and coccyx ( 2cm x 2.5cm) and Stage I on right lateral foot (2.5 cm x 1 cm) and left heel ( 2cm x 0.5cm)) Extremities: no cyanosis, no edema, no clubbing Musculoskeletal: no deformities, other (muscle atrophy) non-focal exam, pupils equal and round, unable to assess due to mental status strange catheter, tracheostomy, 2 left peripheral IVs, and right IJ HD catheter well dressed with no obvious signs of infection Ventilator Settings Ventilator Settings: Ventilator Settings, Last 8 Hours Ventilator Mode A/C Ventilator Mode A/C Ventilator Mode A/C Ventilator Mode A/C Ventilator Mode A/C Ventilator Mode A/C Ventilator Tidal Volume 450 Setting Ventilator Tidal Volume 450 Setting Ventilator Tidal Volume 450 Setting Ventilator Tidal Volume 450 Setting Ventilator Tidal Volume 450 Setting Ventilator Tidal Volume 450 Setting Ventilator Respiratory Rate 14 Setting Ventilator Respiratory Rate 14 Setting Ventilator Respiratory Rate 14 Setting Ventilator Respiratory Rate 14 Setting Ventilator Respiratory Rate 14 Setting Ventilator Respiratory Rate 14 Setting Actual Respiratory Rate 26 Actual Respiratory Rate 26 Actual Respiratory Rate 24 Actual Respiratory Rate 26 Actual Respiratory Rate 22 Positive End Expiratory 5 Pressure Positive End Expiratory 5 Pressure Positive End Expiratory 5 Pressure Positive End Expiratory 5 Pressure Positive End Expiratory 5 Pressure Positive End Expiratory 5 Pressure Peak Inspiratory Airway 34 Pressure Peak Inspiratory Airway 25 Pressure Peak Inspiratory Airway 26 Pressure Peak Inspiratory Airway 27 Pressure Peak Inspiratory Airway 29 Pressure Results - Laboratory Findings CBC and BMP: 07/03/16 04:15 07/03/16 04:15 ABG ABG pH 7.44 pH Units (7.32-7.45) 07/03/16 04:40 ABG pCO2 38 mmHg (35-45) 07/03/16 04:40 ABG pO2 222 mmHg (85-104) H 07/03/16 04:40 ABG O2 Saturation 100 % (95-98) H 07/03/16 04:40 PT/INR, D-dimer PT 13.7 Seconds (9.4-12.1) H 07/02/16 21:22 Abnormal lab findings: Abnormal lab results RBC 3.02 M/mcL (4.19-5.50) L 07/03/16 04:15 Hgb 8.8 g/dL (12.9-16.9) L 07/03/16 04:15 Hct 27.5 % (37.5-50.1) L 07/03/16 04:15 RDW 17.5 % (11.5-14.5) H 07/03/16 04:15 Plt Count 62 K/mcL (140-400) L 07/03/16 04:15 Band Neutrophils % 11.0 % (0-4) H 07/03/16 04:15 Metamyelocytes % 2.0 % (0) H 07/01/16 13:12 Myelocytes % 6.0 % (0) H 07/01/16 13:12 Lymphocytes # 0.5 K/mcL (0.6-4.6) L 07/03/16 04:15 Reactive Lymphocytes Present (Not Present) A 07/01/16 13:12 Platelet Estimate Decreased (Normal) L 07/03/16 04:15 Large Platelets Present (Not Present) A 07/01/16 13:12 Polychromasia 1+ (Not Present) A 07/01/16 13:12 Basophilic Stippling 1+ (Not Present) A 07/01/16 13:12 Anisocytosis 1+ (Not Present) A 07/01/16 03:20 Schistocytes 1+ (Not Present) A 07/01/16 03:20 PT 13.7 Seconds (9.4-12.1) H 07/02/16 21:22 ABG pO2 222 mmHg (85-104) H 07/03/16 04:40 ABG Total CO2 27.0 mEq/L (20-26) H 07/03/16 04:40 ABG O2 Saturation 100 % (95-98) H 07/03/16 04:40 BUN 48 mg/dL (8-26) H 07/03/16 04:15 Creatinine 2.45 mg/dL (0.72-1.25) H 07/03/16 04:15 Est GFR ( Amer) 31 (> 60) L 07/03/16 04:15 Est GFR (Non-Af Amer) 25 (> 60) L 07/03/16 04:15 Calcium 8.5 mg/dL (8.6-10.8) L 07/03/16 04:15 Phosphorus 5.5 mg/dL (2.3-4.7) H D 07/03/16 04:15 Serum Total Protein 5.6 g/dL (6.0-8.3) L 07/01/16 03:20 Albumin 1.7 g/dL (3.5-5.0) L 07/01/16 03:20 Globulin 3.9 g/dL (2.4-3.5) H 07/01/16 03:20 Albumin/Globulin Ratio 0.4 (1.1-2.2) L 07/01/16 03:20 Vitamin B12 972 pg/mL (213-816) H 07/03/16 04:15 - Microbiology Findings Microbiology Findings: Microbiology, Last 48 Hours 07/01/16 13:12 Sputum Culture - Preliminary Sputum Gram Negative Cyrus Gram Negative Cyrus#2 07/02/16 17:45 Legionella Antigen - Final Urine,Strange Port Streptococcus pneumoniae Antigen (M - Final 07/01/16 15:37 Acid Fast Stain - Final Bronchial Washings 07/01/16 15:37 Bronchial Aspirate Culture - Preliminary Bronchial Washings Gram Negative Cyrus - Clinical Findings Intake & Output: Intake & Output 07/02/16 07/02/16 07/03/16 15:59 23:59 07:59 Intake Total 564 / 564 420 / 420 100 / 100 Output Total 195 / 195 115 / 115 105 / 105 Balance 369 / 369 305 / 305 -5 / -5 Weight 67 kg - VTE Documentation of Mechanical Device: Intermittent pneumatic compression device Consult Discharge Plan - Plan Referrals: NO,PCP [Primary Care Provider] - <Daniel Yap - Last Filed: 07/03/16 13:09> Date of Encounter: 07/03/16 Objective PUL Vital signs: Last Vital Signs Temp 97.2 F L 07/03/16 11:58 Pulse 60 07/03/16 12:00 Resp 21 07/03/16 12:00 BP 112/51 07/03/16 12:00 Pulse Ox 100 07/03/16 12:00 Ventilator Settings Ventilator Settings: Ventilator Settings, Last 8 Hours Ventilator Mode A/C Ventilator Mode A/C Ventilator Mode A/C Ventilator Mode A/C Ventilator Tidal Volume 450 Setting Ventilator Tidal Volume 450 Setting Ventilator Tidal Volume 450 Setting Ventilator Tidal Volume 450 Setting Ventilator Respiratory Rate 14 Setting Ventilator Respiratory Rate 14 Setting Ventilator Respiratory Rate 14 Setting Ventilator Respiratory Rate 14 Setting Actual Respiratory Rate 21 Actual Respiratory Rate 21 Actual Respiratory Rate 24 Actual Respiratory Rate 26 Positive End Expiratory 5 Pressure Positive End Expiratory 5 Pressure Positive End Expiratory 5 Pressure Positive End Expiratory 5 Pressure Peak Inspiratory Airway 27 Pressure Peak Inspiratory Airway 28 Pressure Peak Inspiratory Airway 24 Pressure Peak Inspiratory Airway 34 Pressure Results - Laboratory Findings CBC and BMP: 07/03/16 04:15 07/03/16 04:15 ABG ABG pH 7.44 pH Units (7.32-7.45) 07/03/16 04:40 ABG pCO2 38 mmHg (35-45) 07/03/16 04:40 ABG pO2 222 mmHg (85-104) H 07/03/16 04:40 ABG O2 Saturation 100 % (95-98) H 07/03/16 04:40 PT/INR, D-dimer PT 13.7 Seconds (9.4-12.1) H 07/02/16 21:22 Abnormal lab findings: Abnormal lab results RBC 3.02 M/mcL (4.19-5.50) L 07/03/16 04:15 Hgb 8.8 g/dL (12.9-16.9) L 07/03/16 04:15 Hct 27.5 % (37.5-50.1) L 07/03/16 04:15 RDW 17.5 % (11.5-14.5) H 07/03/16 04:15 Plt Count 62 K/mcL (140-400) L 07/03/16 04:15 Band Neutrophils % 11.0 % (0-4) H 07/03/16 04:15 Metamyelocytes % 2.0 % (0) H 07/01/16 13:12 Myelocytes % 6.0 % (0) H 07/01/16 13:12 Lymphocytes # 0.5 K/mcL (0.6-4.6) L 07/03/16 04:15 Reactive Lymphocytes Present (Not Present) A 07/01/16 13:12 Platelet Estimate Decreased (Normal) L 07/03/16 04:15 Large Platelets Present (Not Present) A 07/01/16 13:12 Polychromasia 1+ (Not Present) A 07/01/16 13:12 Basophilic Stippling 1+ (Not Present) A 07/01/16 13:12 Anisocytosis 1+ (Not Present) A 07/01/16 03:20 Schistocytes 1+ (Not Present) A 07/01/16 03:20 PT 13.7 Seconds (9.4-12.1) H 07/02/16 21:22 ABG pO2 222 mmHg (85-104) H 07/03/16 04:40 ABG Total CO2 27.0 mEq/L (20-26) H 07/03/16 04:40 ABG O2 Saturation 100 % (95-98) H 07/03/16 04:40 BUN 48 mg/dL (8-26) H 07/03/16 04:15 Creatinine 2.45 mg/dL (0.72-1.25) H 07/03/16 04:15 Est GFR ( Amer) 31 (> 60) L 07/03/16 04:15 Est GFR (Non-Af Amer) 25 (> 60) L 07/03/16 04:15 POC Glucose 105 (58-89) H 07/03/16 11:23 Calcium 8.5 mg/dL (8.6-10.8) L 07/03/16 04:15 Phosphorus 5.5 mg/dL (2.3-4.7) H D 07/03/16 04:15 Serum Total Protein 5.6 g/dL (6.0-8.3) L 07/01/16 03:20 Albumin 1.7 g/dL (3.5-5.0) L 07/01/16 03:20 Globulin 3.9 g/dL (2.4-3.5) H 07/01/16 03:20 Albumin/Globulin Ratio 0.4 (1.1-2.2) L 07/01/16 03:20 Vitamin B12 972 pg/mL (213-816) H 07/03/16 04:15 - Microbiology Findings Microbiology Findings: Microbiology, Last 48 Hours 07/01/16 13:12 Sputum Culture - Preliminary Sputum Gram Negative Cyrus Gram Negative Cyrus#2 07/02/16 17:45 Legionella Antigen - Final Urine,Strange Port Streptococcus pneumoniae Antigen (M - Final 07/01/16 15:37 Acid Fast Stain - Final Bronchial Washings 07/01/16 15:37 Bronchial Aspirate Culture - Preliminary Bronchial Washings Gram Negative Cyrus - Clinical Findings Intake & Output: Intake & Output 07/02/16 07/03/16 07/03/16 23:59 07:59 15:59 Intake Total 420 / 420 100 / 100 254 / 254 Output Total 115 / 115 280 / 280 100 / 100 Balance 305 / 305 -180 / -180 154 / 154 Weight 67 kg
[2016-07-03] MEDS ORDERED: Aminoglycoside Consult 1 EACH MC ONE (07:24)
[2016-07-03] MEDS: Chlorhexidine Rinse 15 ML MOUTHWASH MM SCH ×2 (08:05→20:32)
[2016-07-03] MEDS ORDERED: 0.9 % Sodium Chloride 250 ML IVC PRN (08:49)
--- NOTE | 2016-07-03 08:49 | Nephrology Progress Note ---
Date of Encounter: 07/03/16 Time of Encounter: 08:47 - Assessment and Plan (1) ESRD (end stage renal disease) Current Visit: Yes Status: Chronic Patient remains critically ill. Patient will undergo routine dialysis today. His overall prognosis remains very poor. He will not receive any heparin on dialysis. (2) Pneumonia Current Visit: Yes Status: Acute Qualifiers: Pneumonia type: due to unspecified organism Laterality: right Lung location: lower lobe of lung Qualified Code(s): J18.1 - Lobar pneumonia, unspecified organism (3) Acute and chronic respiratory failure Current Visit: No Status: Acute Qualifiers: Respiratory failure complication: hypoxia Qualified Code(s): J96.21 - Acute and chronic respiratory failure with hypoxia (4) GI bleed Current Visit: Yes Status: Acute Qualifiers: GI bleed type/associated pathology: unspecified gastrointestinal hemorrhage type Qualified Code(s): K92.2 - Gastrointestinal hemorrhage, unspecified Subjective Principal diagnosis: GI bleed Interval history: Patient remains on the ventilator. He remains critically ill. The patient is scheduled for his usual dialysis today. Vital signs appear stable. Objective - Vital Signs Vital signs: Vital Signs Temp Pulse Resp BP Pulse Ox 07/03/16 08:00 60 21 113/60 100 07/03/16 07:52 59 07/03/16 07:44 98.9 F 07/03/16 07:39 24 100 07/03/16 07:00 59 20 106/47 100 07/03/16 05:52 72 26 123/63 100 07/03/16 05:34 14 100 07/03/16 05:00 72 14 118/62 100 07/03/16 04:22 26 100 07/03/16 04:00 98.9 F 76 25 105/56 100 07/03/16 03:00 64 23 106/44 97 07/03/16 02:00 61 25 113/54 96 07/03/16 01:00 72 24 104/50 100 07/02/16 23:57 88 07/02/16 23:51 98.2 F 88 26 120/80 95 07/02/16 23:39 26 99 07/02/16 23:00 97 25 114/63 100 07/02/16 22:00 101 21 108/56 100 07/02/16 21:28 22 98 07/02/16 21:00 94 20 98/51 100 07/02/16 20:01 19 100 07/02/16 20:00 97.5 F L 87 21 99/58 99 07/02/16 19:00 99 20 108/63 100 07/02/16 18:10 117 07/02/16 18:00 97 19 113/70 100 07/02/16 17:19 25 104/73 100 07/02/16 17:00 117 24 104/73 99 07/02/16 16:00 92 22 108/67 98 07/02/16 15:31 97.7 F 07/02/16 15:05 28 112/64 100 07/02/16 15:00 104 24 112/64 100 07/02/16 14:00 92 21 111/64 98 07/02/16 13:20 30 112/59 100 07/02/16 13:00 86 24 101/61 99 07/02/16 12:01 97.8 F 07/02/16 11:50 108 22 102/65 100 07/02/16 11:22 33 102/65 96 07/02/16 10:00 94 24 102/71 100 07/02/16 09:50 35 108/66 100 07/02/16 09:00 93 30 110/57 100 Intake and Output 07/02/16 07/03/16 07/03/16 23:59 07:59 15:59 Intake Total 420 / 420 100 / 100 104 / 104 Output Total 115 / 115 280 / 280 Balance 305 / 305 -180 / -180 104 / 104 Intake: IV Fluids 300 / 300 100 / 100 104 / 104 PRECEDEX 400 mcg In 100 100 / 100 100 / 100 ml @ 0.2 MCG/KG/HR 3.463 mls/hr IVC .Q24H [facility] Rx#: [id number] Levaquin Premix 500mg/ 100 / 100 100mL 500 mg In 100 ml @ 100 mls/hr IVPB Q48H [facility] Rx#:[id number] Magnesium Sulfate 2 GM In 104 / 104 Dextrose 5% 100 ML @ 50 mls/hr IVPB Q6H PRN Rx#: [id number] Zosyn 3.375 GM In 100 / 100 Dextrose 5% (Minibag+) 100 ML 100 ML @ 25 mls/hr IVPB Q12H [facility]ST[facility] Rx#: [id number] Free Water 120 / 120 Output: Catheter 100 / 100 175 / 175 Gastric Drainage 105 / 105 Other: Weight 67 kg Blood Glucose* 83 - General Appearance Exam: Patient is on the ventilator. He appears to be resting comfortably. Lungs coarse breath sounds. Heart irregular rate and rhythm. Abdomen is soft. PEG tube is in place. There is minimal lower extremity swelling. There is a tunnel dialysis catheter in the right chest. - Lab 07/03/16 04:15 07/03/16 04:15 Most recent lab results ABG pH 7.44 pH Units (7.32-7.45) 07/03/16 04:40 ABG pCO2 38 mmHg (35-45) 07/03/16 04:40 ABG pO2 222 mmHg (85-104) H 07/03/16 04:40 ABG HCO3 25.8 mEQ/L (21-27) 07/03/16 04:40 ABG O2 Saturation 100 % (95-98) H 07/03/16 04:40 Calcium 8.5 mg/dL (8.6-10.8) L 07/03/16 04:15 Phosphorus 5.5 mg/dL (2.3-4.7) H D 07/03/16 04:15 Magnesium 1.6 mg/dL (1.6-2.6) 07/03/16 04:15 - VTE Documentation of Mechanical Device: Intermittent pneumatic compression device Consult Discharge Plan - Plan Referrals: NO,PCP [Primary Care Provider] -
--- NOTE | 2016-07-03 10:46 | Infectious Disease Progress No ---
Date of Encounter: 07/03/16 Time of Encounter: 10:44 - Assessment and Plan (1) Sepsis Current Visit: No Status: Resolved The patient had three SIRS criteria on admission. Likely secondary to pneumonia. Improved. The patient has been afebrile since admission. Tachycardia has resolved. His WBC has normalized, but he has bandemia today. Blood cultures drawn 06/30/16 are NGTD x 2 sets. Qualifiers: Sepsis type: sepsis due to unspecified organism Qualified Code(s): A41.9 - Sepsis, unspecified organism (2) Pneumonia Current Visit: Yes Status: Acute HCAP. Causative organism unclear. CT of the chest shows multifocal pneumonia in the RUL and RLL. Complicated due to tracheostomy. Status post bronchoscopy. Report reviewed. Findings discussed with Dr. Yap. No gross purulence noted on exam. Bronch washings obtained and shows GNR x 2. Final ID and sensitivities are pending. Repeat CT of the chest shows improvement in PNA. S. pneumo and Legionella UAT negative. Await culture results. 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 There has been a second GNR identified on the gram stain. Discontinue Vancomycin. Continue Zosyn 3.375 grams IV Q12H --> dosed for HD M//F. Continue Levaquin 500mg IV Q48H. Duration of treatment depends on the clinical picture. Monitor renal function and dose-adjust antibiotics. Qualifiers: Pneumonia type: due to unspecified organism Laterality: right Lung location: lower lobe of lung Qualified Code(s): J18.1 - Lobar pneumonia, unspecified organism (3) Acute and chronic respiratory failure Current Visit: No Status: Acute Likely secondary to pulmonary edema, chronic pleural effusion, and PNA. Continues to require full ventilatory support. Management per the pulmonary team. Qualifiers: Respiratory failure complication: hypoxia Qualified Code(s): J96.21 - Acute and chronic respiratory failure with hypoxia (4) Anemia, chronic disease Current Visit: No Status: Chronic (5) Thrombocytopenia Current Visit: No Status: Chronic Chronic. Etiology unclear. Consider Hem/Onc consult as an outpatient. (6) Pleural effusion Current Visit: Yes Status: Chronic CT of the chest shows chronic left sided loculated pleural effusion. Per pulmonology, no indication to drain at this time. (7) GI bleed Current Visit: Yes Status: Acute Status post EGD 07/02/[address] Garcia. Large blood clot noted in the upper part of the esophagus. GI consulted and following. Hgb stable at 8.8 this morning. 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 Clinically, they do not appear infected. Continue off-loading of the bony prominences with frequent turning and re- positioning. Wound care per the wound care team recommendations. Qualifiers: Pressure ulcer location: unspecified location Pressure ulcer stage: unspecified pressure ulcer stage Qualified Code(s): L89.90 - Pressure ulcer of unspecified site, unspecified stage (10) Atrial fibrillation Current Visit: Yes Status: Chronic Qualifiers: Atrial fibrillation type: chronic Qualified Code(s): I48.2 - Chronic atrial fibrillation (11) ESRD (end stage renal disease) Current Visit: Yes Status: Chronic On HD M/W/F per TDC to the right upper chest. Nephrology consulted and following. - Subjective Interval history: Patient seen and examined. No acute events noted overnight. Patient less responsive today, but according to nursing, the patient received an increased dose of Precedex overnight. The patient continues to have a large amount of blood coming from his PEG tube. Additionally, his urine is now bloody due to the patient pulling on his catheter. No other new issues per nursing at this time. Patient remains on the ventilator. Infect Dis PN-Objective Data - Labs CBC & Chem 7: 07/04/16 03:36 07/04/16 03:36 Labs: Laboratory Results - last 24 hr 07/01/16 07/02/16 07/02/16 13:12 17:59 21:22 WBC 3.5 L RBC 2.93 L Hgb 8.4 L Hct 26.9 L MCV 91.8 MCH 28.7 MCHC 31.2 L RDW 17.3 H Plt Count 55 L MPV 10.5 Seg Neutrophils % Band Neutrophils % Lymphocytes % Monocytes % Eosinophils % Neutrophils # Lymphocytes # Monocytes # Eosinophils # Platelet Estimate Immature Plt Fraction 2.5 Haptoglobin 138 PT INR ABG pH ABG pCO2 ABG pO2 ABG HCO3 ABG Total CO2 ABG O2 Saturation ABG Base Excess Respiration Rate Blood Gas Modality Inspired O2 Tidal Volume PEEP Sodium Potassium Chloride Carbon Dioxide BUN Creatinine Est GFR ( Amer) Est GFR (Non-Af Amer) BUN/Creatinine Ratio Glucose POC Glucose 83 Calculated Osmolality Calcium Ionized Calcium Phosphorus Magnesium Vitamin B12 Folate Vancomycin Trough 07/02/16 07/03/16 07/03/16 21:22 04:15 04:15 WBC 5.4 D RBC 3.02 L Hgb 8.8 L Hct 27.5 L MCV 91.1 MCH 29.1 MCHC 32.0 RDW 17.5 H Plt Count 62 L MPV 11.8 Seg Neutrophils % 68.0 Band Neutrophils % 11.0 H Lymphocytes % 9.0 Monocytes % 11.0 Eosinophils % 1.0 Neutrophils # 4.3 Lymphocytes # 0.5 L Monocytes # 0.6 Eosinophils # 0.1 Platelet Estimate Decreased L Immature Plt Fraction Haptoglobin PT 13.7 H INR 1.3 ABG pH ABG pCO2 ABG pO2 ABG HCO3 ABG Total CO2 ABG O2 Saturation ABG Base Excess Respiration Rate Blood Gas Modality Inspired O2 Tidal Volume PEEP Sodium Potassium Chloride Carbon Dioxide BUN Creatinine Est GFR ( Amer) Est GFR (Non-Af Amer) BUN/Creatinine Ratio Glucose POC Glucose Calculated Osmolality Calcium Ionized Calcium Phosphorus Magnesium Vitamin B12 Folate Vancomycin Trough 17.3 07/03/16 07/03/16 07/03/16 04:15 04:15 04:40 WBC RBC Hgb Hct MCV MCH MCHC RDW Plt Count MPV Seg Neutrophils % Band Neutrophils % Lymphocytes % Monocytes % Eosinophils % Neutrophils # Lymphocytes # Monocytes # Eosinophils # Platelet Estimate Immature Plt Fraction Haptoglobin PT INR ABG pH 7.44 ABG pCO2 38 ABG pO2 222 H ABG HCO3 25.8 ABG Total CO2 27.0 H ABG O2 Saturation 100 H ABG Base Excess 1.6 Respiration Rate 14 Blood Gas Modality ASSIST CONTROL Inspired O2 35 Tidal Volume 450 PEEP 5 Sodium 139 Potassium 4.2 Chloride 101 Carbon Dioxide 25 BUN 48 H Creatinine 2.45 H Est GFR ( Amer) 31 L Est GFR (Non-Af Amer) 25 L BUN/Creatinine Ratio 20 Glucose 75 POC Glucose Calculated Osmolality 299 Calcium 8.5 L Ionized Calcium 1.17 Phosphorus 5.5 H D Magnesium 1.6 Vitamin B12 972 H Folate 16.9 Vancomycin Trough Cultures: Cultures 07/01/16 13:12 Sputum Culture - Preliminary Sputum Gram Negative Cyrus Gram Negative Cyrus#2 07/02/16 17:45 Legionella Antigen - Final Urine,[place] Streptococcus pneumoniae Antigen (M - Final 07/01/16 15:37 Acid Fast Stain - Final Bronchial Washings 07/01/16 15:37 Bronchial Aspirate Culture - Preliminary Bronchial Washings Gram Negative Cyrus Exam - Constitutional Vitals: Temp Pulse Resp BP Pulse Ox 98.9 F 60 20 104/47 100 07/03/16 07:44 07/03/16 10:00 07/03/16 10:00 07/03/16 10:00 07/03/16 10:00 General appearance: no acute distress, thin, no febrile - Head Head exam: Present: atraumatic, normal inspection, normocephalic - Eye Eye exam: Present: normal appearance, PERRL Pupils: Present: normal accommodation - ENT ENT exam: Present: mucous membranes dry - Neck Neck exam: Present: normal inspection Additional comments: Tracheostomy midline with fenestrated guaze in place without drainage. No erythema noted at the stoma site. O2 via the ventilator. - Respiratory Respiratory exam: Present: CTAB. Absent: rales, respiratory distress, rhonchi, wheezes - Cardiovascular Cardiovascular exam: Present: irregular rhythm. Absent: tachycardia - GI/Abdominal GI/Abdominal exam: Present: normal bowel sounds, soft. Absent: distended, tenderness Additional comments: PEG tube noted to straight drain with dark red drainage noted. [place] catheter noted to be draining dark red bloody urine. - Extremities Exam Extremities exam: Absent: joint swelling, pedal edema, tenderness Additional comments: Muscle wasting and contractures noted to the BLE. Right hip allevyn dressing C/D /I. Heel protectors noted to the bilateral feel. - Neurological Exam Neurological exam: Present: altered (Sedated, does not open eyes, follow commands, or respond to painful stimuli at this time.) - Skin Skin exam: Present: dry, intact, normal color, warm - Additional findings Additional findings: TDC noted to the right upper chest with transparent dressing C/D/I. No erythema , tenderness, or warmth noted. - VTE Documentation of Mechanical Device: Intermittent pneumatic compression device Consult Discharge Plan - Plan Referrals: NO,PCP [Primary Care Provider] - - Attending Attestation I examined this patient and my medical decision-making was reviewed with the WORKERS COMPENSATION ANALYST/PA/Advanced Practice Nurse/Resident Physician. I agree with the documented findings, disposition and treatment plan as described except to the extent set forth below.
[2016-07-03] MEDS ORDERED: Vancomycin 500 MG in D5% in Water (Mini-Bag+) 100 ML IVPB ONE (17:00)
[2016-07-03 21:30] LABS: Kappa Qnt Free Light Chains 30.5 mg/dL (0.33-1.94)
[2016-07-04] MEDS: Lacri-Lube 3.5 GM TUBE BOTH EYES SCH ×4 (00:06→11:45)
[2016-07-04] MEDS: Dexmedetomidine HCl 400 MCG/100 ML MLS IVC SCH ×3 (03:10→14:37)
[2016-07-04] MEDS: Piperacillin/Tazobactam 3.375 GM in D5% in Water (Mini-Bag+) 100 ML IVPB SCH ×2 (03:10→16:42)
[2016-07-04] MEDS: Ipratropium Neb 0.5 MG NEBULIZER IH SCH ×6 (03:37→22:59)
[2016-07-04 03:49] LABS: Hemoglobin 8.4 g/dL (12.9-16.9); Red Cell Distribution Width 17.4 % (11.5-14.5)
[2016-07-04 03:51] LABS: Hematocrit 25.7 % (37.5-50.1); Immature Granulocytes % 4.4 % (0-4); Immature Platelets 2.3 % (1.1-6.1); Lymphocytes # 0.3 K/mcL (0.6-4.6); Lymphocytes % 12.1 %; Mean Corpuscular HGB Conc 32.7 g/dL (31.6-35.5); Mean Corpuscular Hemoglobin 29.7 pg (28.0-33.3); Mean Corpuscular Volume 90.8 fL (83.0-100.0); Mean Platelet Volume 10.5 fL (9.4-12.4); Monocytes # 0.4 K/mcL (0.0-1.3); Neutrophils # 1.9 K/mcL (1.6-8.9); Red Blood Count 2.83 M/mcL (4.19-5.50); Segmented Neutrophils % 69.5 %
[2016-07-04 03:52] LABS: Platelet Count 50 K/mcL (140-400)
[2016-07-04 03:58] LABS: Calcium 7.9 mg/dL (8.6-10.8); Magnesium 1.7 mg/dL (1.6-2.6); Phosphorous 3.8 mg/dL (2.3-4.7); Potassium 3.7 mEq/L (3.5-4.5)
[2016-07-04 04:15] LABS: Platelet Estimate Decreased (Normal)
[2016-07-04 04:56] LABS: ABG Base Excess 2.5 mEq/L (-2.0 to 3.0); ABG HCO3 26.2 mEQ/L (21-27); ABG Oxygen Saturation 99 % (95-98); ABG PCO2 36 mmHg (35-45); ABG PH 7.47 pH Units (7.32-7.45); ABG PO2 114 mmHg (85-104); ABG TCO2 27.3 mEq/L (20-26); Blood Gas FiO2 35 %
[2016-07-04] MEDS: Pantoprazole 40 MG VIAL IVP SCH (06:15)
--- NOTE | 2016-07-04 06:31 | Pulmonology Progress Note ---
<Berlin Dumont - Last Filed: 07/04/16 14:02> Date of Encounter: 07/04/16 Time of Encounter: 06:31 Assessment and Plan (1) GI bleed Current Visit: Yes Status: Acute transfused 2 units pRBCs 07/01 hemoglobin stable 8.4 (8.8) continues to have dark red blood draining out of PEG tube EGD 07/02 revealed large clot with active bleeding in the esophagus, clip placed - questionable TEF - CT Chest (07/01) inconclusive as there was small volume of fluid and trace gas within the mediastinal esophagus without discrete fistulous connection - bleeding in the esophagus and not stomach, PPI switched to daily Liver US (07/01) normal contour without signs of cirrhosis spoke with Dr. 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 high risk for MRSA, pseudomonas, and MDR empiric antibiotics started (3) HCAP (healthcare-associated pneumonia) Current Visit: Yes Status: Acute ventilator dependent via tracheostomy (Jan 2016) CXR and CT scan 06/30 reveals dense consolidation in the RUL and RLL, concern for possible aspiration organism unclear Day 4 of Zosyn and Levofloxacin - sputum cultures 2 GNR species - discussed with ID, de-escalate to Zosyn and Levofloxacin - discontinued Vancomycin 07/03 bronchoscopy, sputum did not seem purulent - awaiting pathology reports of BAL - remains afebrile - CT imaging shows improvement minimal vent support consulted ID on prior sputum culture MDR Acenitobacter - agree that may be colonization - pneumonia appears to be improving - will hold off on starting Colistin S. pneumo and Legionella UAT negative (4) Goals of care, counseling/discussion Current Visit: Yes Status: Acute will discuss with she reportedly has discussed with children expected to arrive later today family meeting with Dr. Yap, family understands the poor prognosis. Their wishes are for the [place], the patient, to be closer to home which is in [place] so that other family members may visit. Will transfer the patient out of the ICU to step down for continued level of care while discussing options for palliative/hospice. Dr. Aburto has been consulted and is at bedside with the family. Stable for transfer out of the ICU in fair condition (5) ESRD (end stage renal disease) Current Visit: Yes Status: Chronic Neurology consulted for hemodialysis, MWF R IJ dialysis catheter (6) Acute and chronic respiratory failure Current Visit: No Status: Acute ventilator dependent via tracheostomy CXR and CT chest concerning for pneumonia, possible aspiration sputum culture pending - 06/02 sputum positive for Acinetobacter - BAL pending meeting oxygenation and ventilation goals Qualifiers: Respiratory failure complication: hypoxia Qualified Code(s): J96.21 - Acute and chronic respiratory failure with hypoxia (7) Atrial fibrillation Current Visit: Yes Status: Chronic chronic atrial fibrillation with pacemaker currently rate controlled 90-100s no AC given his bleeding will restart Cardizem home dose after EGD and Bronchoscopy Qualifiers: Atrial fibrillation type: permanent Qualified Code(s): I48.2 - Chronic atrial fibrillation (8) Pancytopenia Current Visit: Yes Status: Acute leukopenia etiology unclear thrombocytopenia chronic anemia is chronic - blood transfusion 2 units - hemolytic workup unremarkable, haptoglobin 138 LDH 223 hemoglobin stable 8.4 no evidence of cirrhosis on Liver US blood smear 07/01 revealed erythrocyte rouleaux - elevated free light chains, concerning for multiple myeloma - consult heme/onc (9) Pleural effusion Current Visit: Yes Status: Chronic CT of the chest shows chronic left sided loculated pleural effusion. no indication to drain at this time (10) Electrolyte abnormality Current Visit: Yes Status: Acute resolved continue to monitor replete PRN (11) Decubitus ulcer Current Visit: Yes Status: Acute Multiple decubitus ulcers noted --> coccyx, right foot x 2, left foot x 1, right hip. Clinically, they do not appear infected. Continue off-loading of the bony prominences with frequent turning and re- positioning. Wound care per the wound care team recommendations. Qualifiers: Pressure ulcer location: unspecified location Pressure ulcer stage: unspecified pressure ulcer stage Qualified Code(s): L89.90 - Pressure ulcer of unspecified site, unspecified stage (12) Sepsis Current Visit: No Status: Resolved met 3 SIRS criteria on admission likely secondary to pneumonia improved patient has been afebrile since admission tachycardia resolved bandemia resolved but has pancytopenia blood cultures (06/30) x2 are NGTD urine culture (06/30) grew carlo albicans - chronic indwelling catheter and ESRD, likely chronic will not treat sputum culture (07/01) GNR 2 species, preliminary BAL (07/01) GNR, preliminary Qualifiers: Sepsis type: sepsis due to unspecified organism Qualified Code(s): A41.9 - Sepsis, unspecified organism (13) Esophageal candidiasis Current Visit: Yes Status: Resolved no evidence of candidiasis on repeat EGD 07/01 Fluconazole discontinued (14) DVT prophylaxis Current Visit: Yes Status: Acute mechanical EPCDs given GI bleeding Subjective Principal diagnosis: GI bleed Interval history: No major events overnight. Patient seen and evaluated at bedside. Continues to remain intubated with Precedex sedation. Appears in no acute distress. He opens eyes to voice and follows simple commands for the first time. Minimal urine output but urine seems to be more clearer than before. Continues to have large amount of blood coming from his PEG tube. Denies any abdominal pain or chest pain. Objective PUL Vital signs: Last Vital Signs Temp 97.9 F 07/04/16 03:43 Pulse 103 07/04/16 06:00 Resp 32 07/04/16 06:00 BP 96/58 07/04/16 06:00 Pulse Ox 100 07/04/16 06:00 General appearance: no acute distress, alert Eyes: nonicteric, other (PERRL) ENT: oropharynx dry Neck: other (midline tracheostomy, no erythema noted to stoma site) Effort: other (mechanically ventilated, symmetric chest rise) Auscultation: bilateral: clear, diminished breath sounds Cardiovascular: regular rate and rhythm Gastrointestinal: hypoactive bowel sounds, soft, non-tender, non-distended, other (PEG mid abdomen, no active bleeding around the site, continues to have dark blood draining) Integumentary: decubitus ulcer (stage II on right hip (9cm x 5 cm) and coccyx ( 2cm x 2.5cm) and Stage I on right lateral foot (2.5 cm x 1 cm) and left heel ( 2cm x 0.5cm), continues to have heel protectors to bilateral feet and right hip allevyn dressing) Extremities: no cyanosis, no clubbing, edema (+2 pitting edema) Musculoskeletal: other (muscle atrophy to extremities, contractures noted to BLE ) non-focal exam, pupils equal and round, unable to assess due to mental status ( opens eyes to voice, follows simple commands) strange catheter, tracheostomy, 2 left peripheral IVs, and right IJ HD catheter well dressed with no obvious signs of infection Ventilator Settings Ventilator Settings: Ventilator Settings, Last 8 Hours Ventilator Mode A/C Ventilator Mode A/C Ventilator Mode A/C Ventilator Mode A/C Ventilator Mode A/C Ventilator Mode A/C Ventilator Mode A/C Ventilator Tidal Volume 450 Setting Ventilator Tidal Volume 450 Setting Ventilator Tidal Volume 450 Setting Ventilator Tidal Volume 450 Setting Ventilator Tidal Volume 450 Setting Ventilator Tidal Volume 450 Setting Ventilator Tidal Volume 450 Setting Ventilator Respiratory Rate 14 Setting Ventilator Respiratory Rate 14 Setting Ventilator Respiratory Rate 14 Setting Ventilator Respiratory Rate 14 Setting Ventilator Respiratory Rate 14 Setting Ventilator Respiratory Rate 14 Setting Ventilator Respiratory Rate 14 Setting Actual Respiratory Rate 32 Actual Respiratory Rate 19 Actual Respiratory Rate 22 Actual Respiratory Rate 27 Actual Respiratory Rate 32 Actual Respiratory Rate 30 Positive End Expiratory 5 Pressure Positive End Expiratory 5 Pressure Positive End Expiratory 5 Pressure Positive End Expiratory 5 Pressure Positive End Expiratory 5 Pressure Positive End Expiratory 5 Pressure Positive End Expiratory 5 Pressure Peak Inspiratory Airway 30 Pressure Peak Inspiratory Airway 40 Pressure Peak Inspiratory Airway 28 Pressure Peak Inspiratory Airway 30 Pressure Peak Inspiratory Airway 30 Pressure Peak Inspiratory Airway 28 Pressure Results - Laboratory Findings CBC and BMP: 07/04/16 03:36 07/04/16 03:36 ABG ABG pH 7.47 pH Units (7.32-7.45) H 07/04/16 04:45 ABG pCO2 36 mmHg (35-45) 07/04/16 04:45 ABG pO2 114 mmHg (85-104) H 07/04/16 04:45 ABG O2 Saturation 99 % (95-98) H 07/04/16 04:45 PT/INR, D-dimer PT 13.7 Seconds (9.4-12.1) H 07/02/16 21:22 Abnormal lab findings: Abnormal lab results WBC 2.7 K/mcL (4.3-11.1) L 07/04/16 03:36 RBC 2.83 M/mcL (4.19-5.50) L 07/04/16 03:36 Hgb 8.4 g/dL (12.9-16.9) L 07/04/16 03:36 Hct 25.7 % (37.5-50.1) L 07/04/16 03:36 RDW 17.4 % (11.5-14.5) H 07/04/16 03:36 Plt Count 50 K/mcL (140-400) L 07/04/16 03:36 Immature Gran % 4.4 % (0-4) H 07/04/16 03:36 Band Neutrophils % 11.0 % (0-4) H 07/03/16 04:15 Metamyelocytes % 2.0 % (0) H 07/01/16 13:12 Myelocytes % 6.0 % (0) H 07/01/16 13:12 Lymphocytes # 0.3 K/mcL (0.6-4.6) L 07/04/16 03:36 Reactive Lymphocytes Present (Not Present) A 07/01/16 13:12 Platelet Estimate Decreased (Normal) L 07/04/16 03:36 Large Platelets Present (Not Present) A 07/01/16 13:12 Polychromasia 1+ (Not Present) A 07/01/16 13:12 Basophilic Stippling 1+ (Not Present) A 07/01/16 13:12 Anisocytosis 1+ (Not Present) A 07/01/16 03:20 Schistocytes 1+ (Not Present) A 07/01/16 03:20 PT 13.7 Seconds (9.4-12.1) H 07/02/16 21:22 ABG pH 7.47 pH Units (7.32-7.45) H 07/04/16 04:45 ABG pO2 114 mmHg (85-104) H 07/04/16 04:45 ABG Total CO2 27.3 mEq/L (20-26) H 07/04/16 04:45 ABG O2 Saturation 99 % (95-98) H 07/04/16 04:45 Creatinine 1.76 mg/dL (0.72-1.25) H 07/04/16 03:36 Est GFR ( Amer) 45 (> 60) L 07/04/16 03:36 Est GFR (Non-Af Amer) 37 (> 60) L 07/04/16 03:36 Calcium 7.9 mg/dL (8.6-10.8) L 07/04/16 03:36 Serum Total Protein 5.6 g/dL (6.0-8.3) L 07/01/16 03:20 Albumin 1.7 g/dL (3.5-5.0) L 07/01/16 03:20 Globulin 3.9 g/dL (2.4-3.5) H 07/01/16 03:20 Albumin/Globulin Ratio 0.4 (1.1-2.2) L 07/01/16 03:20 Vitamin B12 972 pg/mL (213-816) H 07/03/16 04:15 - Microbiology Findings Microbiology Findings: Microbiology, Last 48 Hours 07/01/16 13:12 Sputum Culture - Preliminary Sputum Gram Negative Cyrus Gram Negative Cyrus#2 07/02/16 17:45 Legionella Antigen - Final Urine,Strange Port Streptococcus pneumoniae Antigen (M - Final 07/01/16 15:37 Acid Fast Stain - Final Bronchial Washings 07/01/16 15:37 Bronchial Aspirate Culture - Preliminary Bronchial Washings Gram Negative Cyrus - Clinical Findings Intake & Output: Intake & Output 07/03/16 07/03/16 07/04/16 15:59 23:59 07:59 Intake Total 954 / 954 100 / 100 100 / 100 Output Total 100 / 100 2800 / 2800 27 / 27 Balance 854 / 854 -2700 / -2700 73 / 73 - VTE Documentation of Mechanical Device: Intermittent pneumatic compression device Consult Discharge Plan - Plan Referrals: NO,PCP [Primary Care Provider] - <Daniel Yap - Last Filed: 07/04/16 14:14> Date of Encounter: 07/04/16 Objective PUL Vital signs: Last Vital Signs Temp 98.4 F 07/04/16 11:47 Pulse 62 07/04/16 12:00 Resp 24 07/04/16 12:00 BP 102/57 07/04/16 12:00 Pulse Ox 100 07/04/16 12:00 Ventilator Settings Ventilator Settings: Ventilator Settings, Last 8 Hours Ventilator Mode A/C Ventilator Mode A/C Ventilator Mode A/C Ventilator Mode A/C Ventilator Mode A/C Ventilator Mode A/C Ventilator Mode A/C Ventilator Tidal Volume 450 Setting Ventilator Tidal Volume 450 Setting Ventilator Tidal Volume 450 Setting Ventilator Tidal Volume 450 Setting Ventilator Tidal Volume 450 Setting Ventilator Tidal Volume 450 Setting Ventilator Tidal Volume 450 Setting Ventilator Respiratory Rate 14 Setting Ventilator Respiratory Rate 14 Setting Ventilator Respiratory Rate 14 Setting Ventilator Respiratory Rate 14 Setting Ventilator Respiratory Rate 14 Setting Ventilator Respiratory Rate 14 Setting Ventilator Respiratory Rate 14 Setting Actual Respiratory Rate 20 Actual Respiratory Rate 14 Actual Respiratory Rate 22 Actual Respiratory Rate 23 Actual Respiratory Rate 20 Actual Respiratory Rate 14 Actual Respiratory Rate 14 Positive End Expiratory 5 Pressure Positive End Expiratory 5 Pressure Positive End Expiratory 5 Pressure Positive End Expiratory 5 Pressure Positive End Expiratory 5 Pressure Positive End Expiratory 5 Pressure Positive End Expiratory 5 Pressure Peak Inspiratory Airway 30 Pressure Peak Inspiratory Airway 32 Pressure Peak Inspiratory Airway 27 Pressure Peak Inspiratory Airway 27 Pressure Peak Inspiratory Airway 30 Pressure Peak Inspiratory Airway 38 Pressure Peak Inspiratory Airway 36 Pressure Results - Laboratory Findings CBC and BMP: 07/04/16 03:36 07/04/16 03:36 ABG ABG pH 7.47 pH Units (7.32-7.45) H 07/04/16 04:45 ABG pCO2 36 mmHg (35-45) 07/04/16 04:45 ABG pO2 114 mmHg (85-104) H 07/04/16 04:45 ABG O2 Saturation 99 % (95-98) H 07/04/16 04:45 PT/INR, D-dimer PT 13.7 Seconds (9.4-12.1) H 07/02/16 21:22 Abnormal lab findings: Abnormal lab results WBC 2.7 K/mcL (4.3-11.1) L 07/04/16 03:36 RBC 2.83 M/mcL (4.19-5.50) L 07/04/16 03:36 Hgb 8.4 g/dL (12.9-16.9) L 07/04/16 03:36 Hct 25.7 % (37.5-50.1) L 07/04/16 03:36 RDW 17.4 % (11.5-14.5) H 07/04/16 03:36 Plt Count 50 K/mcL (140-400) L 07/04/16 03:36 Immature Gran % 4.4 % (0-4) H 07/04/16 03:36 Band Neutrophils % 11.0 % (0-4) H 07/03/16 04:15 Metamyelocytes % 2.0 % (0) H 07/01/16 13:12 Myelocytes % 6.0 % (0) H 07/01/16 13:12 Lymphocytes # 0.3 K/mcL (0.6-4.6) L 07/04/16 03:36 Reactive Lymphocytes Present (Not Present) A 07/01/16 13:12 Platelet Estimate Decreased (Normal) L 07/04/16 03:36 Large Platelets Present (Not Present) A 07/01/16 13:12 Polychromasia 1+ (Not Present) A 07/01/16 13:12 Basophilic Stippling 1+ (Not Present) A 07/01/16 13:12 Anisocytosis 1+ (Not Present) A 07/01/16 03:20 Schistocytes 1+ (Not Present) A 07/01/16 03:20 PT 13.7 Seconds (9.4-12.1) H 07/02/16 21:22 ABG pH 7.47 pH Units (7.32-7.45) H 07/04/16 04:45 ABG pO2 114 mmHg (85-104) H 07/04/16 04:45 ABG Total CO2 27.3 mEq/L (20-26) H 07/04/16 04:45 ABG O2 Saturation 99 % (95-98) H 07/04/16 04:45 Creatinine 1.76 mg/dL (0.72-1.25) H 07/04/16 03:36 Est GFR ( Amer) 45 (> 60) L 07/04/16 03:36 Est GFR (Non-Af Amer) 37 (> 60) L 07/04/16 03:36 POC Glucose 111 (58-89) H 07/04/16 11:22 Calcium 7.9 mg/dL (8.6-10.8) L 07/04/16 03:36 Serum Total Protein 5.6 g/dL (6.0-8.3) L 07/01/16 03:20 Albumin 1.7 g/dL (3.5-5.0) L 07/01/16 03:20 Globulin 3.9 g/dL (2.4-3.5) H 07/01/16 03:20 Albumin/Globulin Ratio 0.4 (1.1-2.2) L 07/01/16 03:20 Vitamin B12 972 pg/mL (213-816) H 07/03/16 04:15 U Free Delia Light Ch 30.40 mg/dL (0.14-2.42) H 07/02/16 04:50 U Free Lambda Light Ch 6.33 mg/dL (0.02-0.67) H 07/02/16 04:50 Free Delia LC, Quant 30.50 mg/dL (0.33-1.94) H 07/02/16 04:28 Free Lambda LC, Quant 23.00 mg/dL (0.57-2.63) H 07/02/16 04:28 - Microbiology Findings Microbiology Findings: Microbiology, Last 48 Hours 07/01/16 15:37 Bronchial Aspirate Culture - Preliminary Bronchial Washings Gram Negative Cyrus 07/01/16 13:12 Sputum Culture - Preliminary Sputum Gram Negative Cyrus Gram Negative Cyrus#2 07/02/16 17:45 Legionella Antigen - Final Urine,Strange Port Streptococcus pneumoniae Antigen (M - Final 07/01/16 15:37 Acid Fast Stain - Final Bronchial Washings - Clinical Findings Intake & Output: Intake & Output 07/03/16 07/04/16 07/04/16 23:59 07:59 15:59 Intake Total 100 / 100 200 / 200 224 / 224 Output Total 2800 / 2800 Balance -2700 / -2700 173 / 173 214 / 214
[2016-07-04] MEDS: Magnesium Sulfate 2 GM in D5% in Water 100 ML IVPB PRN (06:45)
[2016-07-04 07:28] LABS: Urine Collection Duration RANDOM hr; Urine Collection Volume RANDOM mL
[2016-07-04] MEDS: Chlorhexidine Rinse 15 ML MOUTHWASH MM SCH ×2 (08:04→20:56)
--- NOTE | 2016-07-04 09:39 | Nephrology Progress Note ---
Date of Encounter: 07/04/16 Time of Encounter: 09:20 - Assessment and Plan (1) ESRD (end stage renal disease) on dialysis Current Visit: Yes Status: Acute Acute GI bleed, PRBC transfusion in progress. Pneumonia, chronic trach/vent on Vanco, Levaquin and Zosyn. Will have HD tomorrow, keeping MWF schedule. Subjective Principal diagnosis: GI bleed Interval history: Trach/vent, nonresponsive. Objective - Vital Signs Vital signs: Vital Signs Temp Pulse Resp BP Pulse Ox 07/04/16 09:27 23 100/47 100 07/04/16 09:00 60 20 100/47 100 07/04/16 08:07 98.8 F 07/04/16 08:06 20 94/51 100 07/04/16 08:00 60 07/04/16 07:00 65 14 93/50 100 07/04/16 06:00 103 32 96/58 100 07/04/16 05:49 32 99/73 100 07/04/16 05:00 87 33 98/45 100 07/04/16 03:46 67 07/04/16 03:43 97.9 F 67 19 101/43 100 07/04/16 03:37 22 117/51 100 07/04/16 03:00 70 22 112/62 100 07/04/16 02:00 73 23 117/56 100 07/04/16 01:33 27 113/53 100 07/04/16 01:00 69 29 113/53 100 07/04/16 00:00 98.1 F 64 22 110/57 100 07/03/16 23:53 30 110/57 100 07/03/16 23:00 63 22 104/57 100 07/03/16 22:00 64 25 103/50 100 07/03/16 21:12 22 97/38 98 07/03/16 21:00 60 21 97/38 98 07/03/16 20:30 98.2 F 07/03/16 20:00 98.2 F 71 32 94/39 100 07/03/16 19:48 28 99/48 100 07/03/16 19:00 77 14 99/48 100 07/03/16 18:53 97.5 F L 18 99/57 07/03/16 18:30 90/58 05/24/17 18:15 97/45 07/03/16 18:00 90 22 90/50 100 07/03/16 17:45 98/48 07/03/16 17:30 98/58 07/03/16 17:25 27 85/50 100 07/03/16 17:15 90/58 07/03/16 17:00 75 22 99/47 100 07/03/16 16:45 112/53 07/03/16 16:30 97/51 07/03/16 16:20 25 101/52 100 07/03/16 16:15 103/53 07/03/16 16:13 97.5 F L 07/03/16 16:00 65 20 103/53 100 07/03/16 15:45 116/56 07/03/16 15:30 97.2 F L 18 114/52 07/03/16 15:00 59 22 112/49 100 07/03/16 14:58 61 07/03/16 14:00 61 24 111/52 100 07/03/16 13:20 22 107/48 100 07/03/16 13:00 61 22 107/48 100 07/03/16 12:00 60 21 112/51 100 07/03/16 11:58 97.2 F L 07/03/16 11:45 23 109/48 100 07/03/16 11:29 60 07/03/16 11:00 97.2 F L 60 21 107/48 100 07/03/16 10:00 60 20 104/47 100 Intake and Output 07/03/16 07/04/16 07/04/16 23:59 07:59 15:59 Intake Total 100 / 100 200 / 200 104 / 104 Output Total 2800 / 2800 27 / 27 10 Balance -2700 / -2700 173 / 173 94 / 94 Intake: IV Fluids 100 / 100 200 / 200 104 / 104 PRECEDEX 400 mcg In 100 100 / 100 ml @ 0.2 MCG/KG/HR 3.463 mls/hr IVC .Q24H [facility]NESTO Rx#: [id number] Magnesium Sulfate 2 GM In 104 / 104 Dextrose 5% 100 ML @ 50 mls/hr IVPB Q6H PRN Rx#: [id number] Zosyn 3.375 GM In 100 / 100 100 / 100 Dextrose 5% (Minibag+) 100 ML 100 ML @ 25 mls/hr IVPB Q12H [facility] Rx#: [id number] Output: Urine 0 / 0 Total Dialysis Output 2600 / 2600 Catheter 10 / 10 Gastric Drainage 0 / 0 Other: Hemodialysis Net Fluid 2000 Removed (mL) - General Appearance General appearance: Present: chronically ill, frail EENT: Present: mucous membranes moist Neck: Present: no JVD Respiratory: Present: rhonchi Cardiology: Present: irregular rhythm Additional Comments: pedal edema Gastrointestinal: Present: hypoactive bowel sounds Integumentary: Present: warm and dry - Lab 07/04/16 03:36 07/04/16 03:36 Most recent lab results ABG pH 7.47 pH Units (7.32-7.45) H 07/04/16 04:45 ABG pCO2 36 mmHg (35-45) 07/04/16 04:45 ABG pO2 114 mmHg (85-104) H 07/04/16 04:45 ABG HCO3 26.2 mEQ/L (21-27) 07/04/16 04:45 ABG O2 Saturation 99 % (95-98) H 07/04/16 04:45 Calcium 7.9 mg/dL (8.6-10.8) L 07/04/16 03:36 Phosphorus 3.8 mg/dL (2.3-4.7) 07/04/16 03:36 Magnesium 1.7 mg/dL (1.6-2.6) 07/04/16 03:36 Urine Total Protein SEE NOTE mg/d (10-140) 07/02/16 04:50 - VTE Documentation of Mechanical Device: Intermittent pneumatic compression device Consult Discharge Plan - Plan Referrals: NO,PCP [Primary Care Provider] -
--- NOTE | 2016-07-04 10:02 | Infectious Disease Progress No ---
Date of Encounter: 07/04/16 Time of Encounter: 09:58 - Assessment and Plan (1) Sepsis Current Visit: No Status: Resolved The patient had three SIRS criteria on admission. Likely secondary to pneumonia. Improved. The patient has been afebrile since admission. Tachycardia has resolved. The patient is now leukopenic. Bandemia has resolved. Blood cultures drawn 06/30/16 are NGTD x 2 sets. Qualifiers: Sepsis type: sepsis due to unspecified organism Qualified Code(s): A41.9 - Sepsis, unspecified organism (2) Pneumonia Current Visit: Yes Status: Acute HCAP. Causative organism unclear. CT of the chest shows multifocal pneumonia in the RUL and RLL. Complicated due to tracheostomy. Status post bronchoscopy. Report reviewed. Findings discussed with Dr. Yap. No gross purulence noted on exam. Bronch washings obtained and shows GNR x 2. Final ID and sensitivities are pending. Repeat CT of the chest shows improvement in PNA. S. pneumo and Legionella UAT negative. Await culture results. 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 There has been a second GNR identified on the gram stain. Continue Zosyn 3.375 grams IV Q12H --> dosed for HD M/W/F. Continue Levaquin 500mg IV Q48H. Duration of treatment depends on the clinical picture. Monitor renal function and dose-adjust antibiotics. Qualifiers: Pneumonia type: due to unspecified organism Laterality: right Lung location: lower lobe of lung Qualified Code(s): J18.1 - Lobar pneumonia, unspecified organism (3) Acute and chronic respiratory failure Current Visit: No Status: Acute Likely secondary to pulmonary edema, chronic pleural effusion, and PNA. Continues to require full ventilatory support. Management per the pulmonary team. Qualifiers: Respiratory failure complication: hypoxia Qualified Code(s): J96.21 - Acute and chronic respiratory failure with hypoxia (4) Anemia, chronic disease Current Visit: No Status: Chronic Hgb stable around 8. Management per the primary team. (5) Thrombocytopenia Current Visit: No Status: Chronic Chronic. Etiology unclear. Consider Hem/Onc consult. (6) Pleural effusion Current Visit: Yes Status: Chronic CT of the chest shows chronic left sided loculated pleural effusion. Per pulmonology, no indication to drain at this time. (7) GI bleed Current Visit: Yes Status: Acute Status post EGD 07/02/[address] Garcia. Large blood clot noted in the upper part of the esophagus. GI consulted and following. Hgb stable at 8.4 this morning. 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 Clinically, they do not appear infected. Continue off-loading of the bony prominences with frequent turning and re- positioning. Wound care per the wound care team recommendations. Qualifiers: Pressure ulcer location: unspecified location Pressure ulcer stage: unspecified pressure ulcer stage Qualified Code(s): L89.90 - Pressure ulcer of unspecified site, unspecified stage (10) Atrial fibrillation Current Visit: Yes Status: Chronic Qualifiers: Atrial fibrillation type: chronic Qualified Code(s): I48.2 - Chronic atrial fibrillation (11) ESRD (end stage renal disease) Current Visit: Yes Status: Chronic On HD M/W/F per TDC to the right upper chest. Nephrology consulted and following. (12) Leukopenia Current Visit: Yes Status: Acute WBC down to 2.9 today. Etiology unclear --> infectious vs. medication-induced (Zosyn) vs. other. Repeat CBC in the AM. We may need to consider switching antibiotics, but will hold off for now. Qualifiers: Leukopenia type: unspecified Qualified Code(s): D72.819 - Decreased white blood cell count, unspecified - Subjective Interval history: Patient seen and examined. No acute events noted overnight. Patient less responsive today, but does open eyes to painful stimuli and squeezes my hand on command. The patient continues to have blood coming from his PEG tube, 200ml over the past 24 hours. Hematuria continues, but better today than yesterday. No other new issues per nursing at this time. Patient remains on the ventilator. Family meeting to discuss goals of care planned for today. Infect Dis PN-Objective Data - Labs CBC & Chem 7: 07/04/16 03:36 07/04/16 03:36 Labs: Laboratory Results - last 24 hr 07/02/16 07/02/16 07/03/16 04:28 04:50 11:23 WBC RBC Hgb Hct MCV MCH MCHC RDW Plt Count MPV Immature Gran % Seg Neutrophils % Lymphocytes % Monocytes % Eosinophils % Basophils % Neutrophils # Lymphocytes # Monocytes # Eosinophils # Basophils # Platelet Estimate Immature Plt Fraction ABG pH ABG pCO2 ABG pO2 ABG HCO3 ABG Total CO2 ABG O2 Saturation ABG Base Excess Blood Gas Modality Inspired O2 Sodium Potassium Chloride Carbon Dioxide BUN Creatinine Est GFR ( Amer) Est GFR (Non-Af Amer) BUN/Creatinine Ratio Glucose POC Glucose 105 H Calculated Osmolality Calcium Phosphorus Magnesium Ur Collection Duration RANDOM Urine Total Volume RANDOM Urine Total Protein SEE NOTE Urine Albumin (PEP) DETECTED U Kytsa-4-Bofwcmeh DETECTED U Sxirg-2-Czocgcqs DETECTED U Beta Globulin DETECTED U Gamma Globulin DETECTED U Free [place] Light Ch 30.40 H U Free [place] Chain 24h SEE NOTE U Free Lambda Light Ch 6.33 H U Free Lambda Chn 24h SEE NOTE U Free [place]/Lambda 4.80 Urine PRUDENCE Interpret SEE NOTE Free [place] LC, Quant 30.50 H Free Lambda LC, Quant 23.00 H Free [place]/Lambda Ratio 1.33 07/03/16 07/04/16 07/04/16 17:44 03:36 03:36 WBC 2.7 L RBC 2.83 L Hgb 8.4 L Hct 25.7 L MCV 90.8 MCH 29.7 MCHC 32.7 RDW 17.4 H Plt Count 50 L MPV 10.5 Immature Gran % 4.4 H Seg Neutrophils % 69.5 Lymphocytes % 12.1 Monocytes % 14.0 Eosinophils % 0.0 Basophils % 0.0 Neutrophils # 1.9 Lymphocytes # 0.3 L Monocytes # 0.4 Eosinophils # 0.0 Basophils # 0.0 Platelet Estimate Decreased L Immature Plt Fraction 2.3 ABG pH ABG pCO2 ABG pO2 ABG HCO3 ABG Total CO2 ABG O2 Saturation ABG Base Excess Blood Gas Modality Inspired O2 Sodium 138 Potassium 3.7 Chloride 100 Carbon Dioxide 25 BUN 23 D Creatinine 1.76 H Est GFR ( Amer) 45 L Est GFR (Non-Af Amer) 37 L BUN/Creatinine Ratio 13 Glucose 86 POC Glucose 84 Calculated Osmolality 289 Calcium 7.9 L Phosphorus 3.8 Magnesium 1.7 Ur Collection Duration Urine Total Volume Urine Total Protein Urine Albumin (PEP) U Adurw-5-Kydxbezb U Uwkmp-4-Gmnngnjp U Beta Globulin U Gamma Globulin U Free [place] Light Ch U Free [place] Chain 24h U Free Lambda Light Ch U Free Lambda Chn 24h U Free [place]/Lambda Urine PRUDENCE Interpret Free [place] LC, Quant Free Lambda LC, Quant Free [place]/Lambda Ratio 07/04/16 04:45 WBC RBC Hgb Hct MCV MCH MCHC RDW Plt Count MPV Immature Gran % Seg Neutrophils % Lymphocytes % Monocytes % Eosinophils % Basophils % Neutrophils # Lymphocytes # Monocytes # Eosinophils # Basophils # Platelet Estimate Immature Plt Fraction ABG pH 7.47 H ABG pCO2 36 ABG pO2 114 H ABG HCO3 26.2 ABG Total CO2 27.3 H ABG O2 Saturation 99 H ABG Base Excess 2.5 Blood Gas Modality ASSIST CONTROL Inspired O2 35 Sodium Potassium Chloride Carbon Dioxide BUN Creatinine Est GFR ( Amer) Est GFR (Non-Af Amer) BUN/Creatinine Ratio Glucose POC Glucose Calculated Osmolality Calcium Phosphorus Magnesium Ur Collection Duration Urine Total Volume Urine Total Protein Urine Albumin (PEP) U Kohfa-5-Xlsuaqpg U Gxqgr-9-Mkadvabf U Beta Globulin U Gamma Globulin U Free [place] Light Ch U Free [place] Chain 24h U Free Lambda Light Ch U Free Lambda Chn 24h U Free [place]/Lambda Urine PRUDENCE Interpret Free [place] LC, Quant Free Lambda LC, Quant Free [place]/Lambda Ratio Cultures: Cultures 07/01/16 13:12 Sputum Culture - Preliminary Sputum Gram Negative Cyrus Gram Negative Cyrus#2 07/02/16 17:45 Legionella Antigen - Final Urine,[place] Streptococcus pneumoniae Antigen (M - Final 07/01/16 15:37 Acid Fast Stain - Final Bronchial Washings 07/01/16 15:37 Bronchial Aspirate Culture - Preliminary Bronchial Washings Gram Negative Cyrus Serology 07/02/16 Range/Units 04:50 Ur Collection Duration RANDOM hr Urine Total Volume RANDOM mL Urine Total Protein SEE NOTE (10-140) mg/d Urine Albumin (PEP) DETECTED (Detected) U Mzbat-5-[place] DETECTED (None Detected) U Yguey-5-Umyamrvt DETECTED (None Detected) U Beta Globulin DETECTED (None Detected) U Gamma Globulin DETECTED (None Detected) U Free [place] Light Ch 30.40 H (0.14-2.42) mg/dL U Free [place] Chain 24h SEE NOTE mg/d U Free Lambda Light Ch 6.33 H (0.02-0.67) mg/dL U Free Lambda Chn 24h SEE NOTE mg/d U Free [place]/Lambda 4.80 (2.04-10.37) ratio Exam - Constitutional Vitals: Temp Pulse Resp BP Pulse Ox 98.8 F 60 23 100/47 100 07/04/16 08:07 07/04/16 09:00 07/04/16 09:27 07/04/16 09:27 07/04/16 09:27 General appearance: no acute distress, thin, no febrile - Head Head exam: Present: atraumatic, normal inspection, normocephalic - Eye Eye exam: Present: normal appearance, PERRL Pupils: Present: normal accommodation - ENT ENT exam: Present: mucous membranes dry - Neck Neck exam: Present: normal inspection Additional comments: Tracheostomy midline without erythema or drainage noted around the trach stoma. - Respiratory Respiratory exam: Present: CTAB, tachypnea. Absent: rales, respiratory distress , rhonchi, wheezes Additional comments: O2 via the ventilator. FiO2 35%. - Cardiovascular Cardiovascular exam: Present: irregular rhythm. Absent: tachycardia - GI/Abdominal GI/Abdominal exam: Present: hypoactive bowel sounds, soft. Absent: distended, tenderness Additional comments: Jackson catheter noted to be draining tea-colored urine that is blood-tinged. PEG tube continues to straight drain with a small amount of dark red bloody drainage noted in collection bag. - Extremities Exam Extremities exam: Absent: joint swelling, pedal edema, tenderness Additional comments: Muscle atrophy noted to the extremities x 4. - Neurological Exam Neurological exam: Present: alert. Absent: facial droop Additional comments: Opens eyes to verbal stimuli. Squeezes hands when prompted, but otherwise does not follow commands. - Skin Skin exam: Present: dry, intact, normal color, warm - Additional findings Additional findings: TDC noted to the right upper chest with transparent dressing C/D/I. - VTE Documentation of Mechanical Device: Intermittent pneumatic compression device Consult Discharge Plan - Plan Referrals: NO,PCP [Primary Care Provider] - - Attending Attestation I examined this patient and my medical decision-making was reviewed with the [employer] TEACHER/PA/Advanced Practice Nurse/Resident Physician. I agree with the documented findings, disposition and treatment plan as described except to the extent set forth below.
[2016-07-04] MEDS ORDERED: 0.9 % Sodium Chloride 1,000 ML PRIME SCH (14:10)
[2016-07-04] MEDS ORDERED: 0.9 % Sodium Chloride 250 ML IVC PRN ×2 (14:10)
[2016-07-04] MEDS ORDERED: Acetaminophen 325 MG TABLET PO PRN (14:10)
[2016-07-04] MEDS ORDERED: Lacri-Lube 3.5 GM TUBE BOTH EYES PRN (14:10)
[2016-07-04] MEDS ORDERED: *HR* OxyCODONE Oral Soln 5 MG/5 ML UD.LIQ GTUBE PRN (14:10)
[2016-07-04] MEDS ORDERED: *HR* LORazepam 2 MG/ML VIAL IVP PRN (14:10)
[2016-07-04] MEDS ORDERED: Ondansetron 4 MG/2 ML VIAL IVP PRN (14:10)
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
[2016-07-04 16:38] LABS: Alpha 2 Globulin (PEP) 0.79 g/dL (0.48-1.05); Beta Globulin (PEP) 0.72 g/dL (0.48-1.10)
[2016-07-04] MEDS ORDERED: Levofloxacin 500 MG/100 ML 500 MG/100 ML BAG IVPB SCH (18:00)
[2016-07-05] MEDS: Dexmedetomidine HCl 400 MCG/100 ML MLS IVC SCH ×2 (01:27→09:51)
[2016-07-05] MEDS: Piperacillin/Tazobactam 3.375 GM in D5% in Water (Mini-Bag+) 100 ML IVPB SCH (03:47)
[2016-07-05 04:31] LABS: Magnesium 1.8 mg/dL (1.6-2.6); Phosphorous 4.6 mg/dL (2.3-4.7); Potassium 3.4 mEq/L (3.5-4.5)
[2016-07-05 04:32] LABS: Hematocrit 25.7 % (37.5-50.1); Hemoglobin 8.1 g/dL (12.9-16.9); Immature Granulocytes % 1.6 % (0-4); Lymphocytes # 0.3 K/mcL (0.6-4.6); Lymphocytes % 5.9 %; Mean Corpuscular HGB Conc 31.5 g/dL (31.6-35.5); Mean Corpuscular Hemoglobin 28.8 pg (28.0-33.3); Mean Corpuscular Volume 91.5 fL (83.0-100.0); Mean Platelet Volume 10.3 fL (9.4-12.4); Monocytes # 0.5 K/mcL (0.0-1.3); Monocytes % 11.1 %; Neutrophils # 3.6 K/mcL (1.6-8.9); Red Blood Count 2.81 M/mcL (4.19-5.50); Red Cell Distribution Width 17.3 % (11.5-14.5); Segmented Neutrophils % 81.4 %
[2016-07-05 04:33] LABS: Platelet Count 41 K/mcL (140-400)
[2016-07-05] MEDS: Ipratropium Neb 0.5 MG NEBULIZER IH SCH ×6 (04:50→23:53)
[2016-07-05 04:57] LABS: Platelet Estimate Marked Decrease (Normal)
[2016-07-05 07:14] LABS: Immunoglobulin G 1470 mg/dL (768-1632)
[2016-07-05 07:15] LABS: IFE Reflexed IFE Done; Immunoglobulin A 617 mg/dL (68-408); Immunoglobulin M 155 mg/dL (35-263)
[2016-07-05] MEDS: Chlorhexidine Rinse 15 ML MOUTHWASH MM SCH ×2 (08:46→21:26)
[2016-07-05] MEDS: Pantoprazole 40 MG VIAL IVP SCH (08:46)
[2016-07-05] MEDS ORDERED: Pantoprazole 40 MG VIAL IVP SCH (09:00)
--- NOTE | 2016-07-05 09:11 | Pulmonology Progress Note ---
Date of Encounter: 07/05/16 Time of Encounter: 09:08 Assessment and Plan (1) Acute blood loss anemia Current Visit: Yes Status: Acute (2) Failure to thrive in adult Current Visit: Yes Status: Acute (3) Pneumonia Current Visit: Yes Status: Acute Qualifiers: Pneumonia type: due to unspecified organism Laterality: right Lung location: lower lobe of lung Qualified Code(s): J18.1 - Lobar pneumonia, unspecified organism (4) Acute and chronic respiratory failure Current Visit: No Status: Acute Qualifiers: Respiratory failure complication: hypoxia Qualified Code(s): J96.21 - Acute and chronic respiratory failure with hypoxia (5) Pleural effusion Current Visit: Yes Status: Chronic (6) GI bleed Current Visit: Yes Status: Acute Qualifiers: GI bleed type/associated pathology: unspecified gastrointestinal hemorrhage type Qualified Code(s): K92.2 - Gastrointestinal hemorrhage, unspecified (7) ESRD (end stage renal disease) Current Visit: Yes Status: Chronic Subjective Principal diagnosis: GI bleed Interval history: Patient transferred out of the medical intensive care unit on 07/04/2016. No acute overnight events per RN. Unable to obtain review of systems secondary to encephalopathy and trach/vent status. Objective PUL Vital signs: Last Vital Signs Temp 98.0 F 07/05/16 08:13 Pulse 102 07/05/16 08:13 Resp 15 07/05/16 08:13 BP 116/60 07/05/16 08:13 Pulse Ox 100 07/05/16 08:13 General: Elderly, chronically ill-appearing male who is in no acute distress Eyes: nonicteric ENT: oropharynx moist Neck: Trach in place, site appears benign Lungs: Coarse bilateral breath sounds Cardiovascular: regular rate and rhythm Gastrointestinal: normoactive bowel sounds, soft, non-tender, non-distended. PEG tube in place. Integumentary: normal, pressure ulcers noted at the time of admission Extremities: no cyanosis, no edema Musculoskeletal: no deformities Neuro: Minimally interactive with caregivers, no focal deficits noted Psych: Deferred exam secondary to encephalopathy Ventilator Settings Ventilator Settings: Ventilator Settings, Last 8 Hours Ventilator Mode A/C Ventilator Mode A/C Ventilator Mode A/C Ventilator Tidal Volume 450 Setting Ventilator Tidal Volume 450 Setting Ventilator Tidal Volume 450 Setting Ventilator Respiratory Rate 14 Setting Ventilator Respiratory Rate 14 Setting Ventilator Respiratory Rate 14 Setting Actual Respiratory Rate 27 Actual Respiratory Rate 22 Positive End Expiratory 5 Pressure Positive End Expiratory 5 Pressure Positive End Expiratory 5 Pressure Peak Inspiratory Airway 24 Pressure Peak Inspiratory Airway 32 Pressure Results - Laboratory Findings CBC and BMP: 07/05/16 04:00 07/05/16 04:00 ABG ABG pH 7.47 pH Units (7.32-7.45) H 07/04/16 04:45 ABG pCO2 36 mmHg (35-45) 07/04/16 04:45 ABG pO2 114 mmHg (85-104) H 07/04/16 04:45 ABG O2 Saturation 99 % (95-98) H 07/04/16 04:45 PT/INR, D-dimer PT 13.7 Seconds (9.4-12.1) H 07/02/16 21:22 Abnormal lab findings: Abnormal lab results RBC 2.81 M/mcL (4.19-5.50) L 07/05/16 04:00 Hgb 8.1 g/dL (12.9-16.9) L 07/05/16 04:00 Hct 25.7 % (37.5-50.1) L 07/05/16 04:00 MCHC 31.5 g/dL (31.6-35.5) L 07/05/16 04:00 RDW 17.3 % (11.5-14.5) H 07/05/16 04:00 Plt Count 41 K/mcL (140-400) L 07/05/16 04:00 Band Neutrophils % 11.0 % (0-4) H 07/03/16 04:15 Metamyelocytes % 2.0 % (0) H 07/01/16 13:12 Myelocytes % 6.0 % (0) H 07/01/16 13:12 Lymphocytes # 0.3 K/mcL (0.6-4.6) L 07/05/16 04:00 Reactive Lymphocytes Present (Not Present) A 07/01/16 13:12 Platelet Estimate Marked Decrease (Normal) L 07/05/16 04:00 Large Platelets Present (Not Present) A 07/01/16 13:12 Polychromasia 1+ (Not Present) A 07/01/16 13:12 Basophilic Stippling 1+ (Not Present) A 07/01/16 13:12 Anisocytosis 1+ (Not Present) A 07/01/16 03:20 Schistocytes 1+ (Not Present) A 07/01/16 03:20 PT 13.7 Seconds (9.4-12.1) H 07/02/16 21:22 ABG pH 7.47 pH Units (7.32-7.45) H 07/04/16 04:45 ABG pO2 114 mmHg (85-104) H 07/04/16 04:45 ABG Total CO2 27.3 mEq/L (20-26) H 07/04/16 04:45 ABG O2 Saturation 99 % (95-98) H 07/04/16 04:45 Potassium 3.4 mEq/L (3.5-4.5) L 07/05/16 04:00 BUN 30 mg/dL (8-26) H 07/05/16 04:00 Creatinine 2.54 mg/dL (0.72-1.25) H 07/05/16 04:00 Est GFR ( Amer) 30 (> 60) L 07/05/16 04:00 Est GFR (Non-Af Amer) 24 (> 60) L 07/05/16 04:00 Glucose 121 mg/dL (70-99) H 07/05/16 04:00 POC Glucose 111 (58-89) H 07/04/16 11:22 Calcium 8.0 mg/dL (8.6-10.8) L 07/05/16 04:00 Ionized Calcium 1.14 mmol/L (1.15-1.35) L 07/05/16 04:00 Serum Total Protein 5.6 g/dL (6.0-8.3) L 07/01/16 03:20 Total Protein (PEP) 5.40 g/dL (6.00-8.30) L 07/02/16 04:28 Albumin 1.7 g/dL (3.5-5.0) L 07/01/16 03:20 Albumin (PEP) 2.12 g/dL (3.75-5.01) L 07/02/16 04:28 Globulin 3.9 g/dL (2.4-3.5) H 07/01/16 03:20 Albumin/Globulin Ratio 0.4 (1.1-2.2) L 07/01/16 03:20 Ilofp-0-Rkinkzhji 0.47 g/dL (0.19-0.46) H 07/02/16 04:28 Vitamin B12 972 pg/mL (213-816) H 07/03/16 04:15 U Free [place] Light Ch 30.40 mg/dL (0.14-2.42) H 07/02/16 04:50 U Free [place] Light Ch 6.33 mg/dL (0.02-0.67) H 07/02/16 04:50 IgA 617 mg/dL (68-408) H 07/02/16 04:28 Free [place] LC, Quant 30.50 mg/dL (0.33-1.94) H 07/02/16 04:28 Free Lambda LC, Quant 23.00 mg/dL (0.57-2.63) H 07/02/16 04:28 - Microbiology Findings Microbiology Findings: Microbiology, Last 48 Hours 07/01/16 13:12 Sputum Culture - Preliminary Sputum Gram Negative Cyrus Pseudomonas aeruginosa 07/01/16 15:37 Bronchial Aspirate Culture - Preliminary Bronchial Washings Gram Negative Cyrus - Clinical Findings Intake & Output: Intake & Output 07/04/16 07/05/16 07/05/16 23:59 07:59 15:59 Intake Total 300 / 300 Balance 300 / 300 Weight 66.253 kg - VTE Documentation of Mechanical Device: Intermittent pneumatic compression device Consult Discharge Plan - Plan Referrals: NO,PCP [Primary Care Provider] - (this patient is a [facility] patient, 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
[2016-07-05] MEDS ORDERED: 0.9 % Sodium Chloride 250 ML IVC PRN (09:26)
[2016-07-05] MEDS ORDERED: *HR* Heparin 10,000 UNIT/10 ML VIAL IV PRN (09:26)
--- NOTE | 2016-07-05 09:36 | Palliative Progress Note ---
Date of Encounter: 07/05/16 Time of Encounter: 08:45 - Assessment and plan (1) Bacterial pneumonia Current Visit: Yes Status: Acute Assessment and plan: On antibiotics per hospitalist team (2) ESRD (end stage renal disease) on dialysis Current Visit: Yes Status: Acute Assessment and plan: Eating followed by nephrology. (3) Goals of care, counseling/discussion Current Visit: Yes Status: Acute Assessment and plan: Patient is DO NOT RESUSCITATE comfort care arrest. Discussion with family yesterday regarding options. It appears the best option for the patient is to return to [facility] and the family can decide at what point they wish to move on to hospice care. Agent to qualify for hospice they will have to withdraw both ventilator and dialysis. Believe the [facility] should be able to handle antibiotics therefore the sooner we can get the patient over there options the family will have. Did check into getting the patient back over to [place] for hospice and this cannot be accomplished patient is certainly hospice eligible at [facility] if the family so desires and they are ready to stop the ventilator and the dialysis. (4) GI bleed Current Visit: Yes Status: Acute Assessment and plan: Appears stable at this time. Qualifiers: GI bleed type/associated pathology: unspecified gastrointestinal hemorrhage type Qualified Code(s): K92.2 - Gastrointestinal hemorrhage, unspecified - Time Spent With Patient Total time spent is greater than 50% in coordination of care (as documented) at patient's floor/unit and/or counseling patient: - Subjective Interval history: Agent appears stable this morning is nonverbal due to being on a ventilator, however does not appear to have any complaints. Patient looks comfortable. - Constitutional Vitals: Abnormal lab results RBC 2.81 M/mcL (4.19-5.50) L 07/05/16 04:00 Hgb 8.1 g/dL (12.9-16.9) L 07/05/16 04:00 Hct 25.7 % (37.5-50.1) L 07/05/16 04:00 MCHC 31.5 g/dL (31.6-35.5) L 07/05/16 04:00 RDW 17.3 % (11.5-14.5) H 07/05/16 04:00 Plt Count 41 K/mcL (140-400) L 07/05/16 04:00 Band Neutrophils % 11.0 % (0-4) H 07/03/16 04:15 Metamyelocytes % 2.0 % (0) H 07/01/16 13:12 Myelocytes % 6.0 % (0) H 07/01/16 13:12 Lymphocytes # 0.3 K/mcL (0.6-4.6) L 07/05/16 04:00 Reactive Lymphocytes Present (Not Present) A 07/01/16 13:12 Platelet Estimate Marked Decrease (Normal) L 07/05/16 04:00 Large Platelets Present (Not Present) A 07/01/16 13:12 Polychromasia 1+ (Not Present) A 07/01/16 13:12 Basophilic Stippling 1+ (Not Present) A 07/01/16 13:12 Anisocytosis 1+ (Not Present) A 07/01/16 03:20 Schistocytes 1+ (Not Present) A 07/01/16 03:20 PT 13.7 Seconds (9.4-12.1) H 07/02/16 21:22 ABG pH 7.47 pH Units (7.32-7.45) H 07/04/16 04:45 ABG pO2 114 mmHg (85-104) H 07/04/16 04:45 ABG Total CO2 27.3 mEq/L (20-26) H 07/04/16 04:45 ABG O2 Saturation 99 % (95-98) H 07/04/16 04:45 Potassium 3.4 mEq/L (3.5-4.5) L 07/05/16 04:00 BUN 30 mg/dL (8-26) H 07/05/16 04:00 Creatinine 2.54 mg/dL (0.72-1.25) H 07/05/16 04:00 Est GFR ( Amer) 30 (> 60) L 07/05/16 04:00 Est GFR (Non-Af Amer) 24 (> 60) L 07/05/16 04:00 Glucose 121 mg/dL (70-99) H 07/05/16 04:00 POC Glucose 111 (58-89) H 07/04/16 11:22 Calcium 8.0 mg/dL (8.6-10.8) L 07/05/16 04:00 Ionized Calcium 1.14 mmol/L (1.15-1.35) L 07/05/16 04:00 Serum Total Protein 5.6 g/dL (6.0-8.3) L 07/01/16 03:20 Total Protein (PEP) 5.40 g/dL (6.00-8.30) L 07/02/16 04:28 Albumin 1.7 g/dL (3.5-5.0) L 07/01/16 03:20 Albumin (PEP) 2.12 g/dL (3.75-5.01) L 07/02/16 04:28 Globulin 3.9 g/dL (2.4-3.5) H 07/01/16 03:20 Albumin/Globulin Ratio 0.4 (1.1-2.2) L 07/01/16 03:20 Aarbe-2-Rgnseotif 0.47 g/dL (0.19-0.46) H 07/02/16 04:28 Vitamin B12 972 pg/mL (213-816) H 07/03/16 04:15 U Free [place] Light Ch 30.40 mg/dL (0.14-2.42) H 07/02/16 04:50 U Free Lambda Light Ch 6.33 mg/dL (0.02-0.67) H 07/02/16 04:50 IgA 617 mg/dL (68-408) H 07/02/16 04:28 Free [place] LC, Quant 30.50 mg/dL (0.33-1.94) H 07/02/16 04:28 Free Lambda LC, Quant 23.00 mg/dL (0.57-2.63) H 07/02/16 04:28 General appearance: Present: no acute distress - Respiratory Respiratory exam: Present: decreased breath sounds, rhonchi (Vent) - Cardiovascular Cardiovascular exam: Present: irregular rhythm - GI/Abdominal GI/Abdominal exam: Present: normal bowel sounds, soft. Absent: tenderness - Extremities Exam Extremities exam: Absent: tenderness - Neurological Exam Neurological exam: Present: alert - Skin Skin exam: Present: dry, warm Palliative Quality Palliative Quality: Screen for Code Status: Yes, Screen for Goals of Care: Yes, Screen for Pain: Yes, If Pain Regimen Started, Initiate Bowel Regimen: NA, Screen for Nausea/Vomitting: Yes Code Status: 06/30/16 15:56 Resuscitation Status: Active [RES] Routine Comment: Resuscitation Status: DNR-Comfort Care-Arrest - Labs CBC & Chem 7: 07/05/16 04:00 07/05/16 04:00 Labs: Laboratory Results - last 24 hr 07/02/16 07/04/16 07/04/16 04:28 11:22 12:09 WBC RBC Hgb Hct MCV MCH MCHC RDW Plt Count MPV Immature Gran % Seg Neutrophils % Lymphocytes % Monocytes % Eosinophils % Basophils % Neutrophils # Lymphocytes # Monocytes # Eosinophils # Basophils # Platelet Estimate Sodium Potassium Chloride Carbon Dioxide BUN Creatinine Est GFR ( Amer) Est GFR (Non-Af Amer) BUN/Creatinine Ratio Glucose POC Glucose 111 H Calculated Osmolality Calcium Ionized Calcium Phosphorus Magnesium 2.2 Prot Electrophor EER SEE NOTE Total Protein (PEP) 5.40 L Albumin (PEP) 2.12 L Orsho-6-Mzvycrndh 0.47 H Ohwrh-3-Vubyqjrbh 0.79 Beta Globulins 0.72 Gamma Globulins 1.30 PEP Interpretation SEE NOTE Serum Immunofix Reflex PRUDENCE Done IgG 1470 IgA 617 H IgM 155 07/05/16 07/05/16 07/05/16 04:00 04:00 04:00 WBC 4.4 D RBC 2.81 L Hgb 8.1 L Hct 25.7 L MCV 91.5 MCH 28.8 MCHC 31.5 L RDW 17.3 H Plt Count 41 L MPV 10.3 Immature Gran % 1.6 Seg Neutrophils % 81.4 Lymphocytes % 5.9 Monocytes % 11.1 Eosinophils % 0.0 Basophils % 0.0 Neutrophils # 3.6 Lymphocytes # 0.3 L Monocytes # 0.5 Eosinophils # 0.0 Basophils # 0.0 Platelet Estimate Marked Decrease L Sodium 137 Potassium 3.4 L Chloride 101 Carbon Dioxide 25 BUN 30 H Creatinine 2.54 H Est GFR ( Amer) 30 L Est GFR (Non-Af Amer) 24 L BUN/Creatinine Ratio 12 Glucose 121 H POC Glucose Calculated Osmolality 291 Calcium 8.0 L Ionized Calcium 1.14 L Phosphorus 4.6 Magnesium 1.8 Prot Electrophor EER Total Protein (PEP) Albumin (PEP) Csiyy-6-Lgigsqfum Guutr-9-Avrbziikf Beta Globulins Gamma Globulins PEP Interpretation Serum Immunofix Reflex IgG IgA IgM - ABG Interpretation ABG results: ABG ABG pH 7.47 pH Units (7.32-7.45) H 07/04/16 04:45 ABG pCO2 36 mmHg (35-45) 07/04/16 04:45 ABG pO2 114 mmHg (85-104) H 07/04/16 04:45 ABG O2 Saturation 99 % (95-98) H 07/04/16 04:45 PT/INR, D-dimer PT 13.7 Seconds (9.4-12.1) H 07/02/16 21:22 Consult Discharge Plan - Plan Referrals: NO,PCP [Primary Care Provider] - (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
--- NOTE | 2016-07-05 09:42 | Nephrology Progress Note ---
Date of Encounter: 07/05/16 Time of Encounter: 09:35 - Assessment and Plan (1) ESRD (end stage renal disease) on dialysis Current Visit: Yes Status: Acute Acute GI bleed. Pneumonia, chronic trach/vent. Will have HD today, keeping MWF schedule. Orders given. Subjective Principal diagnosis: GI bleed Interval history: Trach/vent, alert, tracking. Objective - Vital Signs Vital signs: Vital Signs Temp Pulse Resp BP Pulse Ox 07/05/16 08:13 98.0 F 102 15 116/60 100 07/05/16 07:50 27 100 07/05/16 06:00 79 110/61 07/05/16 05:00 88 106/65 07/05/16 04:50 14 100 07/05/16 04:00 88 113/64 07/05/16 03:37 97.5 F L 88 92/72 100 07/05/16 03:30 84 92/72 07/04/16 23:30 97.1 F L 67 109/49 100 07/04/16 22:54 28 100 07/04/16 21:09 70 07/04/16 20:40 38 95/61 100 07/04/16 18:36 78 22 95/61 100 07/04/16 17:06 23 97/50 100 07/04/16 16:26 31 103/47 100 07/04/16 16:00 79 22 103/47 100 07/04/16 14:00 68 22 100/67 100 07/04/16 13:33 24 100/55 100 07/04/16 12:00 62 24 102/57 100 07/04/16 11:55 60 07/04/16 11:47 98.4 F 07/04/16 11:21 19 104/49 100 07/04/16 10:00 66 22 101/46 100 Intake and Output 07/04/16 07/05/16 07/05/16 23:59 07:59 15:59 Intake Total 300 / 300 Balance 300 / 300 Intake: IV Fluids 300 / 300 PRECEDEX 400 mcg In 100 100 / 100 ml @ 0.2 MCG/KG/HR 3.463 mls/hr IVC .Q24H ERNESTO Rx#: [id number] Levaquin Premix 500mg/ 100 / 100 100mL 500 mg In 100 ml @ 100 mls/hr IVPB Q48H ERNESTO Rx#:[id number] Zosyn 3.375 GM In 100 / 100 Dextrose 5% (Minibag+) 100 ML 100 ML @ 25 mls/hr IVPB Q12H ERNESTO Rx#: [id number] Other: Weight 66.253 kg Patient Weight 07/05/16 23:59 Weight 66.253 kg - General Appearance General appearance: Present: chronically ill, frail EENT: Present: mucous membranes moist Respiratory: Present: rhonchi Cardiology: Present: edema, irregular rhythm Additional Comments: mild pedal Gastrointestinal: Present: normoactive bowel sounds, no guarding Integumentary: Present: warm and dry Psychiatric: Present: cooperative - Lab 07/05/16 04:00 07/05/16 04:00 Most recent lab results ABG pH 7.47 pH Units (7.32-7.45) H 07/04/16 04:45 ABG pCO2 36 mmHg (35-45) 07/04/16 04:45 ABG pO2 114 mmHg (85-104) H 07/04/16 04:45 ABG HCO3 26.2 mEQ/L (21-27) 07/04/16 04:45 ABG O2 Saturation 99 % (95-98) H 07/04/16 04:45 Calcium 8.0 mg/dL (8.6-10.8) L 07/05/16 04:00 Phosphorus 4.6 mg/dL (2.3-4.7) 07/05/16 04:00 Magnesium 1.8 mg/dL (1.6-2.6) 07/05/16 04:00 Urine Total Protein SEE NOTE mg/d (10-140) 07/02/16 04:50 - VTE Documentation of Mechanical Device: Intermittent pneumatic compression device Consult Discharge Plan - Plan Referrals: NO,PCP [Primary Care Provider] - (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
[2016-07-05] MEDS ORDERED: 0.9 % Sodium Chloride 250 ML ONE (10:56)
--- NOTE | 2016-07-05 11:20 | Infectious Disease Progress No ---
Date of Encounter: 07/05/16 Time of Encounter: 11:18 - Assessment and Plan (1) Sepsis Current Visit: No Status: Resolved The patient had three SIRS criteria on admission. Likely secondary to pneumonia. Improved. The patient has been afebrile since admission. Tachycardia has resolved. Leukopenia has resolved. Blood cultures drawn 06/30/16 are NGTD x 2 sets. Qualifiers: Qualified Code(s): A41.9 - Sepsis, unspecified organism (2) Pneumonia Current Visit: Yes Status: Acute HCAP. Causative organism unclear. CT of the chest shows multifocal pneumonia in the RUL and RLL. Complicated due to tracheostomy. Status post bronchoscopy. Report reviewed. Findings discussed with Dr. Yap. No gross purulence noted on exam. Bronch washings obtained and shows PSEA and unidentified GNR (final ID and sensitivities are pending). Repeat CT of the chest shows improvement in PNA. S. pneumo and Legionella UAT negative. Await culture results. 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 There has been a second GNR identified on the gram stain. Continue Zosyn 3.375 grams IV Q12H --> dosed for HD M/W/F. Continue Levaquin 500mg IV Q48H. Duration of treatment depends on the clinical picture. Would recommend continuing Zosyn and Levaquin on discharge to complete a 14 day course. Can switch Levaquin to PO/per PEG tube when ready for discharge. Monitor renal function and dose-adjust antibiotics. EPIV placed 06/07/16. Would recommend having it switched out due to it having been placed 4 weeks ago. Qualifiers: Qualified Code(s): J18.1 - Lobar pneumonia, unspecified organism (3) Acute and chronic respiratory failure Current Visit: No Status: Acute Likely secondary to pulmonary edema, chronic pleural effusion, and PNA. Continues to require full ventilatory support. Management per the pulmonary team. Qualifiers: Qualified Code(s): J96.21 - Acute and chronic respiratory failure with hypoxia (4) Anemia, chronic disease Current Visit: No Status: Chronic Hgb stable around 8. Management per the primary team. (5) Thrombocytopenia Current Visit: No Status: Chronic Chronic. Etiology unclear. Consider Hem/Onc consult. (6) Pleural effusion Current Visit: Yes Status: Chronic CT of the chest shows chronic left sided loculated pleural effusion. Per pulmonology, no indication to drain at this time. (7) GI bleed Current Visit: Yes Status: Acute Status post EGD 07/02/[address] Garcia. Large blood clot noted in the upper part of the esophagus. GI consulted and following. Hgb stable at 8.1 this morning. 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 Clinically, they do not appear infected. Continue off-loading of the bony prominences with frequent turning and re- positioning. Wound care per the wound care team recommendations. Qualifiers: Qualified Code(s): L89.90 - Pressure ulcer of unspecified site, unspecified stage (10) Atrial fibrillation Current Visit: Yes Status: Chronic Qualifiers: Qualified Code(s): I48.2 - Chronic atrial fibrillation (11) ESRD (end stage renal disease) Current Visit: Yes Status: Chronic On HD M/W/F per TDC to the right upper chest. Nephrology consulted and following. (12) Leukopenia Current Visit: Yes Status: Resolved Resolved. Qualifiers: Qualified Code(s): D72.819 - Decreased white blood cell count, unspecified - Subjective Interval history: Patient seen and examined. No acute events noted overnight. Patient moved to yesterday. More responsive today. Follows commands and verbalizes that he feels "okay" today. He does not answer when I ask if he is in pain though. Notes from yesterday's family meeting reviewed. Palliative care consulted, but family reluctant to pursue Hospice. Tube feeds have been re-started. No other issues per nursing. Infect Dis PN-Objective Data - Labs CBC & Chem 7: 07/05/16 04:00 07/05/16 04:00 Labs: Laboratory Results - last 24 hr 07/02/16 07/04/16 07/04/16 04:28 11:22 12:09 WBC RBC Hgb Hct MCV MCH MCHC RDW Plt Count MPV Immature Gran % Seg Neutrophils % Lymphocytes % Monocytes % Eosinophils % Basophils % Neutrophils # Lymphocytes # Monocytes # Eosinophils # Basophils # Platelet Estimate Sodium Potassium Chloride Carbon Dioxide BUN Creatinine Est GFR ( Amer) Est GFR (Non-Af Amer) BUN/Creatinine Ratio Glucose POC Glucose 111 H Calculated Osmolality Calcium Ionized Calcium Phosphorus Magnesium 2.2 Prot Electrophor EER SEE NOTE Total Protein (PEP) 5.40 L Albumin (PEP) 2.12 L Jttnx-9-Pcohfrsae 0.47 H Igfyk-3-Dkidxkiaq 0.79 Beta Globulins 0.72 Gamma Globulins 1.30 PEP Interpretation SEE NOTE Serum Immunofix Reflex PRUDENCE Done IgG 1470 IgA 617 H IgM 155 07/05/16 07/05/16 07/05/16 04:00 04:00 04:00 WBC 4.4 D RBC 2.81 L Hgb 8.1 L Hct 25.7 L MCV 91.5 MCH 28.8 MCHC 31.5 L RDW 17.3 H Plt Count 41 L MPV 10.3 Immature Gran % 1.6 Seg Neutrophils % 81.4 Lymphocytes % 5.9 Monocytes % 11.1 Eosinophils % 0.0 Basophils % 0.0 Neutrophils # 3.6 Lymphocytes # 0.3 L Monocytes # 0.5 Eosinophils # 0.0 Basophils # 0.0 Platelet Estimate Marked Decrease L Sodium 137 Potassium 3.4 L Chloride 101 Carbon Dioxide 25 BUN 30 H Creatinine 2.54 H Est GFR ( Amer) 30 L Est GFR (Non-Af Amer) 24 L BUN/Creatinine Ratio 12 Glucose 121 H POC Glucose Calculated Osmolality 291 Calcium 8.0 L Ionized Calcium 1.14 L Phosphorus 4.6 Magnesium 1.8 Prot Electrophor EER Total Protein (PEP) Albumin (PEP) Uyhzm-0-Dsxxmhurw Larfy-6-Tynpmswpm Beta Globulins Gamma Globulins PEP Interpretation Serum Immunofix Reflex IgG IgA IgM Cultures: Cultures 07/01/16 13:12 Sputum Culture - Preliminary Sputum Gram Negative Cyrus Pseudomonas aeruginosa 07/01/16 15:37 Bronchial Aspirate Culture - Preliminary Bronchial Washings Gram Negative Cyrus 07/02/16 17:45 Legionella Antigen - Final Urine,[place] Streptococcus pneumoniae Antigen (M - Final 07/01/16 15:37 Acid Fast Stain - Final Bronchial Washings Serology 07/02/16 Range/Units 04:50 Ur Collection Duration RANDOM hr Urine Total Volume RANDOM mL Urine Total Protein SEE NOTE (10-140) mg/d Urine Albumin (PEP) DETECTED (Detected) U Ryfzu-1-Dtvwoukh DETECTED (None Detected) U [place]-2-[place] DETECTED (None Detected) U Beta Globulin DETECTED (None Detected) U Gamma Globulin DETECTED (None Detected) U Free [place] Light Ch 30.40 H (0.14-2.42) mg/dL U Free [place] Chain 24h SEE NOTE mg/d U Free [place] Light Ch 6.33 H (0.02-0.67) mg/dL U Free Lambda Chn 24h SEE NOTE mg/d U Free [place]/Lambda 4.80 (2.04-10.37) ratio Exam - Constitutional Vitals: Temp Pulse Resp BP Pulse Ox 98.0 F 92 20 135/65 100 07/05/16 10:10 07/05/16 08:40 07/05/16 10:10 07/05/16 10:10 07/05/16 10:06 General appearance: cooperative, no acute distress, thin - Head Head exam: Present: atraumatic, normal inspection, normocephalic - Eye Eye exam: Present: EOMI, normal appearance, PERRL Pupils: Present: normal accommodation - ENT ENT exam: Present: mucous membranes dry - Neck Additional comments: Tracheostomy midline with O2 via the ventilator. Moderate amount of thick light yellow sputum noted in the in-line suction tubing. No erythema or drainage from the stoma. - Respiratory Respiratory exam: Present: rhonchi (Coarse, throughout), tachypnea. Absent: rales, respiratory distress - Cardiovascular Cardiovascular exam: Present: irregular rhythm. Absent: tachycardia - GI/Abdominal GI/Abdominal exam: Present: normal bowel sounds, soft. Absent: distended, tenderness Additional comments: Jackson catheter noted to be draining small amount of dark yellow urine. PEG tube noted to the epigastric region with tube feeds infusing. - Extremities Exam Extremities exam: Absent: joint swelling, pedal edema, tenderness Additional comments: Muscle atrophy noted to the BLE. Right hip dressing C/D/I. - Neurological Exam Neurological exam: Present: alert. Absent: oriented X3, facial droop Additional comments: Attempts to communicate and answers "okay" when asked how he feels. Does not answer any other questions. Squeezes my hands on command, but does not follow any other commands. - Skin Skin exam: Present: dry, intact, normal color, warm - Additional findings Additional findings: TDC noted to the right upper chest with transparent dressing C/D/I. No erythema , drainage, or tenderness noted. 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 I agree with the documented findings, disposition and treatment plan as described except to the extent set forth below.
[2016-07-05] MEDS ORDERED: 0.9 % Sodium Chloride 2,000 ML ONE (12:33)
[2016-07-05] MEDS: ALPRAZolam 0.25 MG TABLET PO PRN ×2 (13:34→21:28)
--- NOTE | 2016-07-05 15:31 | Internal Med Progress Note ---
Date of Encounter: 07/05/16 Time of Encounter: 10:30 - Assessment and plan (1) Acute and chronic respiratory failure Current Visit: Yes Status: Acute Assessment and plan: Continue Vent support. IV antibiotics. Patient will be discharged to rehabilitation on ventilator when medically appropriate. Continue supportive care. Wean off Precedex Qualifiers: Respiratory failure complication: hypoxia Qualified Code(s): J96.21 - Acute and chronic respiratory failure with hypoxia (2) Acute blood loss anemia Current Visit: Yes Status: Acute Assessment and plan: Hemoglobin 8.1 today. We will monitor blood counts. (3) ESRD (end stage renal disease) Current Visit: Yes Status: Chronic Assessment and plan: Continue dialysis per nephrology recommendation (4) Failure to thrive in adult Current Visit: Yes Status: Acute Assessment and plan: Poor overall prognosis. Currently DNR comfort care. On tube feeds. (5) GI bleed Current Visit: Yes Status: Acute Assessment and plan: Adherent clot in the esophagus on upper GI endoscopy. No active bleeding. This was clipped. Continue to monitor blood counts. Continue PPI Qualifiers: GI bleed type/associated pathology: unspecified gastrointestinal hemorrhage type Qualified Code(s): K92.2 - Gastrointestinal hemorrhage, unspecified (6) Pleural effusion Current Visit: Yes Status: Chronic (7) Pneumonia Current Visit: Yes Status: Acute Assessment and plan: Cultures positive for Pseudomonas sensitive to Zosyn and ceftazidime. Infectious disease recommends placing patient on ceftazidime to complete treatment course for 14 days. Qualifiers: Pneumonia type: due to Pseudomonas Laterality: right Lung location: lower lobe of lung Qualified Code(s): J15.1 - Pneumonia due to Pseudomonas - Subjective Interval history: Patient is lying in bed. On ventilator with trach in place. Does not appear to be in distress at this time. - Constitutional Vitals: Temp Pulse Resp BP Pulse Ox 99.4 F 129 20 116/62 100 07/05/16 14:24 07/05/16 14:24 07/05/16 14:24 07/05/16 14:24 07/05/16 14:24 General appearance: Present: A&O X 1, no acute distress. Absent: answers questions appropriately - ENT Additional comments: Trach in place connected to vent - Respiratory Respiratory exam: Present: accessory muscle use, prolonged expiratory phase. Absent: rales, rhonchi, wheezes Additional comments: Coarse breath sounds bilaterally - Cardiovascular Cardiovascular exam: Present: RRR, +S1, +S2. Absent: diastolic murmur, gallop, rubs, systolic murmur - GI/Abdominal GI/Abdominal exam: Present: normal bowel sounds, soft, no peritoneal signs. Absent: distended, tenderness - Extremities Exam Extremities exam: Present: warm, radial pulses palpable and symetrical. Absent : calf tenderness, cyanotic, pedal edema - Neurological Exam Neurological exam: Present: alert, no focal deficits. Absent: facial droop, speech deficit - Skin Skin exam: Present: dry, intact Internal Medicine: Result - Labs CBC & Chem 7: 07/05/16 04:00 07/05/16 04:00 Labs: Short CBC 07/05/16 Range/Units 04:00 WBC 4.4 D (4.3-11.1) K/mcL Hgb 8.1 L (12.9-16.9) g/dL Hct 25.7 L (37.5-50.1) % Plt Count 41 L (140-400) K/mcL Neutrophils # 3.6 (1.6-8.9) K/mcL BMP 07/05/16 04:00 Sodium 137 Potassium 3.4 L Chloride 101 Carbon Dioxide 25 BUN 30 H Creatinine 2.54 H Glucose 121 H Calcium 8.0 L - ABG Interpretation ABG results: ABG ABG pH 7.47 pH Units (7.32-7.45) H 07/04/16 04:45 ABG pCO2 36 mmHg (35-45) 07/04/16 04:45 ABG pO2 114 mmHg (85-104) H 07/04/16 04:45 ABG O2 Saturation 99 % (95-98) H 07/04/16 04:45 PT/INR, D-dimer PT 13.7 Seconds (9.4-12.1) H 07/02/16 21:22 - VTE Documentation of Mechanical Device: Intermittent pneumatic compression device Consult Discharge Plan - Plan Referrals: NO,PCP [Primary Care Provider] - (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 Stanley. Errors in grammar, wording or other phrases may exist. If errors are found after the documentation is signed, they will be addressed individually in the addendum section of this document when appropriate.
[2016-07-05] MEDS ORDERED: Mirtazapine 15 MG TABLET GTUBE SCH (21:00)
[2016-07-05] MEDS ORDERED: *HR* Metoprolol 5 MG/5 ML VIAL IVP ONE (23:33)
[2016-07-06 03:44] LABS: Hemoglobin 8.4 g/dL (12.9-16.9)
[2016-07-06 03:46] LABS: Hematocrit 26.7 % (37.5-50.1); Immature Granulocytes % 2.9 % (0-4); Immature Platelets 2.8 % (1.1-6.1); Lymphocytes # 0.3 K/mcL (0.6-4.6); Lymphocytes % 10.9 %; Mean Corpuscular HGB Conc 31.5 g/dL (31.6-35.5); Mean Corpuscular Volume 92.1 fL (83.0-100.0); Monocytes # 0.5 K/mcL (0.0-1.3); Monocytes % 15.1 %; Neutrophils # 2.2 K/mcL (1.6-8.9); Red Cell Distribution Width 17.3 % (11.5-14.5); Segmented Neutrophils % 71.1 %
[2016-07-06 03:47] LABS: Platelet Count 42 K/mcL (140-400)
[2016-07-06 03:56] LABS: Calcium 8.1 mg/dL (8.6-10.8); Potassium 3.3 mEq/L (3.5-4.5)
[2016-07-06] MEDS: Ipratropium Neb 0.5 MG NEBULIZER IH SCH ×3 (04:06→11:22)
--- NOTE | 2016-07-06 08:10 | Nephrology Progress Note ---
Date of Encounter: 07/06/16 Time of Encounter: 07:55 - Assessment and Plan (1) ESRD (end stage renal disease) on dialysis Current Visit: Yes Status: Acute Acute GI bleed. Pneumonia, chronic trach/vent. No HD today. Subjective Principal diagnosis: GI bleed Interval history: Trach/vent, alert, tracking. Objective - Vital Signs Vital signs: Vital Signs Temp Pulse Resp BP Pulse Ox 07/06/16 05:53 31 100 07/06/16 04:20 98.4 F 98 34 124/71 100 07/06/16 04:07 20 132/72 100 07/06/16 00:07 86 24 115/67 99 07/06/16 00:01 83 30 121/73 99 07/05/16 23:55 84 28 133/70 07/05/16 23:53 26 129/72 100 07/05/16 23:45 118 30 129/72 100 07/05/16 21:59 30 125/71 100 07/05/16 20:00 99.1 F 103 30 125/71 100 07/05/16 19:59 30 100 07/05/16 17:10 116 26 153/47 100 07/05/16 16:00 101 153/47 07/05/16 15:48 27 99 07/05/16 15:00 91 139/70 07/05/16 14:33 114 07/05/16 14:24 99.4 F 129 20 116/62 100 07/05/16 13:55 117 34 127/62 100 07/05/16 13:15 98.0 F 22 122/61 07/05/16 13:10 109/57 07/05/16 12:55 122/58 07/05/16 12:40 116/77 07/05/16 12:25 127/63 07/05/16 12:10 115/52 07/05/16 11:55 133/60 07/05/16 11:40 124/64 07/05/16 11:35 135 07/05/16 11:25 139/61 07/05/16 11:10 132/62 07/05/16 10:55 132/65 07/05/16 10:40 141/78 07/05/16 10:25 143/78 07/05/16 10:10 98.0 F 20 135/65 07/05/16 10:06 25 100 07/05/16 08:40 86 28 116/66 94 07/05/16 08:13 98.0 F 102 15 116/60 100 Intake and Output 07/05/16 07/06/16 07/06/16 23:59 07:59 15:59 Intake Total 165 / 165 508 / 508 Output Total 50 / 50 0 / 0 Balance 115 / 115 508 / 508 Intake: Oral 0 / 0 Tube Feeding 65 / 65 388 / 388 Free Water 120 / 120 Free Water Intake Amount 100 / 100 Output: Gastric Tube Lavage 0 / 0 0 / 0 Amount Left Upper Quadrant 0 / 0 0 / 0 Catheter 50 / 50 Other: Stool Size Small Moderate Stool Consistency liquid loose Stool Color Brown Brown Black # Bowel Movement Diapers 1 Blood Glucose* 150 126 - General Appearance General appearance: Present: chronically ill, frail EENT: Present: mucous membranes moist Neck: Present: no JVD Respiratory: Present: clear Cardiology: Present: no edema, irregular rhythm Gastrointestinal: Present: normoactive bowel sounds, no tenderness Integumentary: Present: warm and dry Psychiatric: Present: mood/affect appropriate, cooperative - Lab 07/06/16 03:38 07/06/16 03:38 Most recent lab results ABG pH 7.47 pH Units (7.32-7.45) H 07/04/16 04:45 ABG pCO2 36 mmHg (35-45) 07/04/16 04:45 ABG pO2 114 mmHg (85-104) H 07/04/16 04:45 ABG HCO3 26.2 mEQ/L (21-27) 07/04/16 04:45 ABG O2 Saturation 99 % (95-98) H 07/04/16 04:45 Calcium 8.1 mg/dL (8.6-10.8) L 07/06/16 03:38 Phosphorus 4.6 mg/dL (2.3-4.7) 07/05/16 04:00 Magnesium 1.8 mg/dL (1.6-2.6) 07/05/16 04:00 Urine Total Protein SEE NOTE mg/d (10-140) 07/02/16 04:50 - VTE Documentation of Mechanical Device: Intermittent pneumatic compression device Consult Discharge Plan - Plan Referrals: NO,PCP [Primary Care Provider] - (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
[2016-07-06] MEDS: Chlorhexidine Rinse 15 ML MOUTHWASH MM SCH (08:47)
[2016-07-06] MEDS: Pantoprazole 40 MG VIAL IVP SCH (08:47)
[2016-07-06] MEDS ORDERED: Finasteride 5 MG TABLET PO SCH (09:00)
[2016-07-06 11:21] VITALS: BP 125/82
--- NOTE | 2016-07-06 11:35 | Discharge Summary ---
Date of Encounter: 07/06/16 Time of Encounter: 11:00 - Discharge Diagnosis (1) Acute and chronic respiratory failure Priority: Primary Status: Acute Qualifiers: Respiratory failure complication: hypoxia Qualified Code(s): J96.21 - Acute and chronic respiratory failure with hypoxia (2) Pneumonia Priority: Secondary Status: Acute Qualifiers: Pneumonia type: due to Pseudomonas Laterality: right Lung location: lower lobe of lung Qualified Code(s): J15.1 - Pneumonia due to Pseudomonas (3) Acute blood loss anemia Priority: Secondary Status: Acute (4) ESRD (end stage renal disease) Priority: Secondary Status: Chronic (5) Failure to thrive in adult Priority: Secondary Status: Acute (6) GI bleed Priority: Secondary Status: Acute Qualifiers: GI bleed type/associated pathology: unspecified gastrointestinal hemorrhage type Qualified Code(s): K92.2 - Gastrointestinal hemorrhage, unspecified (7) Pleural effusion Priority: Secondary Status: Chronic - Discharge Medications Prescriptions: ALPRAZolam [Xanax 0.25 MG Tablet] 0.25 mg GTUBE Q6H PRN #15 tablet PRN Reason: Anxiety levoFLOXacin [Levofloxacin] 500 mg PO Q48H #5 solution Mirtazapine [Remeron] 30 mg GTUBE HS #14 tablet Oxycodone HCl [Oxaydo] 5 mg GTUBE Q4H PRN #14 tablet.orl PRN Reason: Pain Vboinxyvpltg-Wbfs-Vgchntqx,Iso [Zosyn 2.25 gm/50 ml Galaxy Bag] 2.25 gm IV Q8H 8 Days Piperacillin/Tazobactam [Zosyn] 0.75 gm IV POSTDI #5 vial Home Medications: Ascorbate Calcium [Vitamin C] 500 mg GTUBE BID 05/24/16 [History] Atorvastatin Calcium [Lipitor] 20 mg GTUBE HS 05/24/16 [History] Bisacodyl [Dulcolax] 5 mg GTUBE DAILY PRN 05/24/16 [History] Bisacodyl [Dulcolax] 10 mg RC DAILY PRN 05/24/16 [History] Buspirone HCl [Buspar] 11.25 mg GTUBE BID 05/24/16 [History] Finasteride [Proscar] 5 mg PO DAILY 05/24/16 [History] GuaiFENesin Liq [Robitussin Liq] 400 mg GTUBE Q6HR 05/24/16 [History] Ipratropium/Albuterol Neb [Duoneb] 3 ml IH Q2H PRN 05/24/16 [History] Melatonin 3 mg PO HS 05/24/16 [History] Metoprolol Tartrate [Lopressor] 25 mg GTUBE BID 05/24/16 [History] Mupirocin Calcium [Bactroban Nasal] 1 appl NS BID 05/24/16 [History] Quetiapine Fumarate [Seroquel] 75 mg GTUBE Q8H 05/24/16 [History] Acetaminophen [Arthritis Pain Relief] 650 mg GTUBE Q4H PRN 05/31/16 [History] B Complex C No.10/Folic Acid [Nephronex Liquid] 900 mcg GTUBE DAILY 05/31/16 [ History] Ipratropium/Albuterol Neb [Duoneb] 3 ml IH Q4HR 05/31/16 [History] Mineral Oil/Petrolatum,White [Artificial Tears Eye Ointment] 1 appl BOTH EYES Q4H PRN 05/31/16 [History] Sennosides/Docusate Sodium [Senna Plus] 1 each GTUBE DAILY 05/31/16 [History] Darbepoetin [Aranesp] 60 mcg SQ QWEEK syringe 06/13/16 [Rx] Diltiazem [Cardizem] 45 mg PO Q6HR #90 tablet 06/13/16 [Rx] Gabapentin [Neurontin] 100 mg GTUBE DAILY #30 capsule 06/13/16 [Rx] Pantoprazole Sodium [Protonix] 40 mg GTUBE DAILY 06/30/16 [History] Sucralfate [Carafate] 1 gm GTUBE QID 06/30/16 [History] ALPRAZolam [Xanax 0.25 MG Tablet] 0.25 mg GTUBE Q6H PRN #15 tablet 07/06/16 [Rx] Mirtazapine [Remeron] 30 mg GTUBE HS #14 tablet 07/06/16 [Rx] Oxycodone HCl [Oxaydo] 5 mg GTUBE Q4H PRN #14 tablet.orl 07/06/16 [Rx] Xzamvlmpxmba-Bdwr-Huqtvoux,Iso [Zosyn 2.25 gm/50 ml Galaxy Bag] 2.25 gm IV Q8H 8 Days 07/06/16 [Rx] Piperacillin/Tazobactam [Zosyn] 0.75 gm IV POSTDI #5 vial 07/06/16 [Rx] levoFLOXacin [Levofloxacin] 500 mg PO Q48H #5 solution 07/06/16 [Rx] Allergies/Adverse Reactions: Allergies No Known Allergies Allergy (Verified 05/24/16 04:21) Procedures/tests Complete & Pending: Procedures Performed prior 72 hours Category Date Time Status EKG [ECG 12 lead ECG] [ECG] AM 0600 Y 07/04/16 06:00 Ordered Date of admission: 06/30/16 14:43 Primary care physician: PCP NO Consults: 06/30/16 15:55 Consult to Pulmonology [CONS] Routine Consulting Provider: [facility]m [facility] Christiana Reason for Consult: HCAP; Left loculated effusion; Trach. on vent. Call Completed: Yes 06/30/16 16:20 Consult to Nephrology [CONS] Routine Consulting Provider: Rachid Archuleta Reason for Consult: ESRD Call Completed: Yes 06/30/16 16:35 Consult to Nutrition [CONS] Routine Comment: Consulting Provider: NUTRITION Reason for Dietary Consult: MST Score 07/01/16 08:46 Consult to Gastroenterology [CONS] Stat Consulting Provider: Gastroenterology Joycelyn Reason for Consult: GIB, COFFEE GROUND EMESIS, HGB 6.3 Time Notified: 08:46 Call Completed: Yes 07/01/16 10:15 Consult to Dialysis [CONS] ONCE 07/02/16 13:19 Consult to Infectious Diseases [CONS] Stat Consulting Provider: Infectious Disease Joycelyn Reason for Consult: HCAP, sputum positive for acinobacter. Call Completed: Yes 07/03/16 09:00 Consult to Dialysis [CONS] ONCE 07/04/16 13:42 Consult to Palliative Care [CONS] Routine Comment: Consulting Provider: Palliative Care Christiana Reason for Consult: Possible Hospice candidate. 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 Foster is a 81 year old male patient with a history of ventilator dependence via tracheostomy, PEG tube, atrial fibrillation, CVA, end-stage renal disease was admitted here after he was found to have bleeding via his PEG tube. CT scan of his chest on arrival to ER showed a dense right-sided pneumonia Along with the left-sided loculated effusion. Patient was admitted to ICU and managed with IV antibiotics and IV PPI. Gastroenterology was consulted and they did the urgent upper GI endoscopy which showed an esophageal bleed which was clipped. There was an adherent clot to it. Since then, the patient has been having stable hemoglobin levels. He has not been started back on tube feedings and is tolerating them well. Patient's sputum cultures from bronchial washings have been growing Acinetobacter which is likely colonization. His sputum culture is also positive for Pseudomonas and so the patient has been placed on Zosyn and Levaquin per infectious disease recommendations. He will complete a 14 day treatment course with these antibiotics intravenously. Patient's CODE STATUS is currently DNR comfort care arrest. Palliative care was involved in patient's care. At this time and family would like to continue his current level of care without initiation of hospice but this is currently under consideration once patient is discharged back to halfway. Currently, the patient is medically stable for discharge and will be discharged back to his rehabilitation facility for long-term care. - Time Spent with Patient Total time spent providing and/or coordinating discharge services: Greater than 30 minutes (50 min) - Constitutional Vitals: Temp Pulse Resp BP Pulse Ox 98 F 119 22 125/82 100 07/06/16 11:12 07/06/16 11:12 07/06/16 11:12 07/06/16 11:12 07/06/16 11:12 General appearance: Present: A&O X 1, no acute distress. Absent: answers questions appropriately - ENT Additional comments: Trach in place with ventilator connected - Respiratory Respiratory exam: Absent: accessory muscle use, rales, rhonchi, wheezes Additional comments: Coarse breath sounds bilaterally - Cardiovascular Cardiovascular exam: Present: RRR, +S1, +S2. Absent: diastolic murmur, gallop, rubs, systolic murmur - Neurological Exam Neurological exam: Present: alert, no focal deficits. Absent: facial droop, speech deficit - Skin Skin exam: Present: dry, intact Additional comments: Patient has 2 stage II decubitus ulcers in the sacral region. He also has stage I ulcers on his bilateral feet - VTE Documentation of Mechanical Device: Intermittent pneumatic compression device - Attending Attestation This document has been at least partially created by [employer] recognition technology by Dr. Stanley. Errors in grammar, wording or other phrases may exist. If errors are found after the documentation is signed, they will be addressed individually in the addendum section of this document when appropriate.
--- NOTE | 2016-07-06 11:47 | Physician Discharge Referral ---
ExtendedCare Referral Info Institutional Level of Care: Skilled (with vent management) - Diagnosis (1) Acute and chronic respiratory failure Priority: Primary Status: Acute (2) Pneumonia Priority: Secondary Status: Acute (3) Acute blood loss anemia Priority: Secondary Status: Acute (4) ESRD (end stage renal disease) Priority: Secondary Status: Chronic (5) Failure to thrive in adult Status: Acute (6) GI bleed Priority: Secondary Status: Acute (7) Pleural effusion Priority: Secondary Status: Chronic Prognosis: Poor Aware of Diagnosis: Family Aware of Prognosis: Family - Transfer Medications Prescriptions: levoFLOXacin [Levofloxacin] 500 mg PO Q48H #5 solution Xysvumuoztmj-Qjlw-Yoakidxa,Iso [Zosyn 2.25 gm/50 ml Galaxy Bag] 2.25 gm IV Q8H 8 Days Piperacillin/Tazobactam [Zosyn] 0.75 gm IV POSTDI #5 vial Home Medications: Ascorbate Calcium [Vitamin C] 500 mg GTUBE BID 05/24/16 [History] Atorvastatin Calcium [Lipitor] 20 mg GTUBE HS 05/24/16 [History] Bisacodyl [Dulcolax] 5 mg GTUBE DAILY PRN 05/24/16 [History] Bisacodyl [Dulcolax] 10 mg RC DAILY PRN 05/24/16 [History] Buspirone HCl [Buspar] 11.25 mg GTUBE BID 05/24/16 [History] Finasteride [Proscar] 5 mg PO DAILY 05/24/16 [History] GuaiFENesin Liq [Robitussin Liq] 400 mg GTUBE Q6HR 05/24/16 [History] Ipratropium/Albuterol Neb [Duoneb] 3 ml IH Q2H PRN 05/24/16 [History] Melatonin 3 mg PO HS 05/24/16 [History] Metoprolol Tartrate [Lopressor] 25 mg GTUBE BID 05/24/16 [History] Mirtazapine [Remeron] 30 mg GTUBE HS 05/24/16 [History] Mupirocin Calcium [Bactroban Nasal] 1 appl NS BID 05/24/16 [History] Oxycodone HCl [Oxaydo] 5 mg GTUBE Q4H PRN 05/24/16 [History] Quetiapine Fumarate [Seroquel] 75 mg GTUBE Q8H 04/14/17 [History] Acetaminophen [Arthritis Pain Relief] 650 mg GTUBE Q4H PRN 05/31/16 [History] B Complex C No.10/Folic Acid [Nephronex Liquid] 900 mcg GTUBE DAILY 05/31/16 [ History] Ipratropium/Albuterol Neb [Duoneb] 3 ml IH Q4HR 05/31/16 [History] Mineral Oil/Petrolatum,White [Artificial Tears Eye Ointment] 1 appl BOTH EYES Q4H PRN 05/31/16 [History] Sennosides/Docusate Sodium [Senna Plus] 1 each GTUBE DAILY 05/31/16 [History] ALPRAZolam [Xanax 0.25 MG Tablet] 0.25 mg GTUBE Q6H PRN #15 tablet 06/13/16 [Rx] Darbepoetin [Aranesp] 60 mcg SQ QWEEK syringe 06/13/16 [Rx] Diltiazem [Cardizem] 45 mg PO Q6HR #90 tablet 06/13/16 [Rx] Gabapentin [Neurontin] 100 mg GTUBE DAILY #30 capsule 06/13/16 [Rx] Pantoprazole Sodium [Protonix] 40 mg GTUBE DAILY 06/30/16 [History] Sucralfate [Carafate] 1 gm GTUBE QID 06/30/16 [History] Lcxqjyoslydj-Fmfq-Hsatoalx,Iso [Zosyn 2.25 gm/50 ml Galaxy Bag] 2.25 gm IV Q8H 8 Days 07/06/16 [Rx] Piperacillin/Tazobactam [Zosyn] 0.75 gm IV POSTDI #5 vial 07/06/16 [Rx] levoFLOXacin [Levofloxacin] 500 mg PO Q48H #5 solution 07/06/16 [Rx] Allergies/Adverse Reactions: Allergies No Known Allergies Allergy (Verified 05/24/16 04:21) - Respiratory Orders Other (vent management mode AC tidal volume 450 FiO2 35% PEEP of 5 IE ratio 1: 1.1,HOB greater than 30 degrees) Smoking Cessation: Smoking cessation has been advised. For more information, call the [employer] Tobacco Quit Line at 4-378-VGVG-NOW. - Advance Directives Code Status: DNR-Comfort Care (DNR CC arrest) - Mobility Orders Bedrest - Rehabiliation Orders Rehab Potential: Fair Rehab Orders: Evaluation for Physical Therapy, Evaluation for Occupational Therapy - Diet Orders Tube Feedings (type/amount/rate): Nepro one can 5 times daily with a goal of 45 mL per hour. 250 mL water flush after each can CERTIFICATION: I certify that the transfer of the above named patient to an Extended Care Facility is necessary for the continuing treatment of the diagnosis listed. The above information is true and accurate reflection of patient's current condition. Confidential - Redisclosure prohibited without a patient's written consent.
== END 2016-07-06 14:00 | DRG 870 ==
LOC: ICNU 14:43 → 2NNU 07-04 18:32
PROVIDERS: ADMIT Internal Medicine Sleep Medicine; ATTEND Internal Medicine